=== PATIENT | male | born 1940 | race Caucasian/White ===

== ENCOUNTER 2019-07-13 13:33 | Inpatient (IN) | payer OTHER ==
[2019-07-13 14:57] LABS: Absolute Lymphocytes (CBC) 0.3 K/uL (0.7-4.9); Basophils % 0.6 % (0-1.3); Hematocrit 28.7 % (39.6-49.0); Lymphocytes % 13.7 % (15.3-44.8); MPV 8.7 fL (7.6-11.3); RBC Red Blood Cell Count 3.34 M/uL (4.33-5.43)
[2019-07-13] MEDS ORDERED: ONDANSETRON 4 MG/2 ML VIAL IV PRN (15:00)
[2019-07-13] MEDS ORDERED: ONDANSETRON 4 MG (ODT) TAB PO PRN (15:00)
[2019-07-13] MEDS ORDERED: LOPERAMIDE HCL 2 MG CAPSULE PO PRN (15:00)
[2019-07-13] MEDS ORDERED: DIPHENHYDRAMINE 25 MG TAB/CAP PO PRN (15:00)
[2019-07-13] MEDS ORDERED: POLYETHYL GLY 3350 17 GM/DOSE PO PRN (15:00)
[2019-07-13 15:07] LABS: Protime INR 1.61
--- NOTE | 2019-07-13 15:07 | RAD REPORT ---
EXAM DESCRIPTION: Perla Hammond And Lat (2 Views)07/13/2019 2:50 pm CLINICAL HISTORY: Shortness of breath COMPARISON: January 2018 FINDINGS: A few areas of subsegmental atelectasis are present the lung bases Upper lobes appear clear. The heart is mildly enlarged. Small pleural effusions or thickening unchanged
[2019-07-13 15:21] LABS: Magnesium 1.8 mg/dL (1.8-2.4); Phosphorus 3.6 mg/dL (2.5-4.9); Potassium 5.4 mmol/L (3.5-5.1); Thyroid Stimulating Hormone 3.04 uIU/mL (0.360-3.740)
--- NOTE | 2019-07-13 17:15 | RAD REPORT ---
EXAM DESCRIPTION: USExtrem Venous W Compress Bil07/13/2019 4:34 pm CLINICAL HISTORY: Bilateral leg swelling/elevated D-dimer COMPARISON: 2018 FINDINGS: Echogenic material having the appearance of old thrombus is present within the mid right s uperficial femoral vein, right popliteal vein and right posterior tibial vein. Veins are partially co mpressible Left common femoral, popliteal, superficial femoral and posterior tibial veins demonstrate phasic wav eforms and are compressible. Doppler demonstrates good flow IMPRESSION: Chronic thrombus within the right superficial femoral, right popliteal and right posteri or tibial vein No acute thrombus seen.
[2019-07-13 19:56] LABS: Anisocytosis 1+; Blood Morphology Comment NOTED (NOT SEEN); Platelet Estimate DECR; Urine White Blood Cell Casts OK
[2019-07-14] MEDS ORDERED: LEVOTHYROXINE SOD 0.125 MG TAB PO SCH (06:00)
[2019-07-14 06:11] LABS: Potassium 5.3 mmol/L (3.5-5.1)
[2019-07-14 06:45] LABS: Hematocrit 27.4 % (39.6-49.0); RBC Red Blood Cell Count 3.19 M/uL (4.33-5.43)
[2019-07-14 06:46] LABS: Absolute Lymphocytes (CBC) 0.4 K/uL (0.7-4.9); Basophils % 0.7 % (0-1.3); Lymphocytes % 16.8 % (15.3-44.8); MPV 8.5 fL (7.6-11.3)
[2019-07-14 06:49] LABS: Urine Appearance CLOUDY; Urine Bilirubin NEGATIVE (NEG); Urine Blood NEGATIVE (NEG); Urine Color YELLOW; Urine Glucose NEGATIVE (NEG); Urine Protein 1+ (NEG); Urine Urobilinogen 0.2 mg/dL (0.2-1.0)
[2019-07-14 07:10] LABS: UR MICROALBUMIN 25.7 mg/dL (< 1.9)
[2019-07-14 08:11] LABS: Urine Microscopic Reflex ORDER UMIC
[2019-07-14 08:12] LABS: Urine Bacteria <20 /HPF (NONE SEEN); Urine Coarse Granular Casts 0-5 /LPF (NONE SEEN); Urine Culture Reflex Order NOT NEEDED; Urine Mucus 2+ /HPF (NONE SEEN); Urine RBC <5 /HPF (NONE SEEN)
[2019-07-14] MEDS: HYDRALAZINE HCL 25 MG TABLET PO SCH ×2 (08:56→21:26)
[2019-07-14] MEDS: HOME MED 1 EA UNK (Fluticasone/Vilanterol [Breo Ellipta 200-25 Mcg Inh] 1 EACH) IH SCH (08:56)
[2019-07-14] MEDS ORDERED: GLIMEPIRIDE 2 MG TABLET PO SCH (09:00)
[2019-07-14] MEDS ORDERED: BISOPROLOL 5 MG TABLET PO SCH (09:00)
[2019-07-14] MEDS ORDERED: HYDRALAZINE HCL 25 MG TABLET PO SCH (09:00)
[2019-07-14] MEDS ORDERED: RIVAROXABAN 10 MG TABLET PO SCH (09:00)
[2019-07-14] MEDS ORDERED: SOD POLYSTYREN SUL 15 GM/60 ML UCUP PO ONE (13:10)
--- NOTE | 2019-07-14 13:17 | P.CNS ---
Date of Consult: 07/14/19 Reason for Consult: AGUILAR , hyperkalmeia Requesting Physician: King Love V Chief Complaint: SOB History of Present Illness: A 78 Y/o man with PMHx of CKD baseline Cr ~1.7 , DM, HTN ,CODP, Le DVT on NOAC pt presented with SOB pt was complaining of SOb for the last few days , that becoming worse inspite of using inhalers, pt also report poor oral intake denied NSAID intake, or contrast exposure, Cr 2.3, K 5.3, not on SOLOMON or ARB no nausea, vomiting , diarrhea or constipation Allergies No Known Allergies Allergy (Unverified 07/13/19 14:09) Home Medications: Bisoprolol Fumarate [Zebeta] 10 mg PO DAILY 07/13/19 Fluticasone/Vilanterol [Breo Ellipta 200-25 Mcg INH] 1 each IH DAILY 07/13/19 Glimepiride [Amaryl] 4 mg PO BID 07/13/19 Hydralazine HCl [Apresoline] 100 mg PO DAILY 07/13/19 Levothyroxine [Synthroid] 125 mcg PO [id number] 07/13/19 Rivaroxaban [Xarelto] 10 mg PO DAILY 07/13/19 - Past Medical/Surgical History Diabetic: Yes -: HTN -: DMII -: Asthma -: left lower lobectomy -: right knee arthroscoopy -: neck surgery -: 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 - Social History Smoking Status: Never smoker Alcohol use: No CD- Drugs: No Caffeine use: No Place of Residence: Home Physical Examination Temp Pulse Resp BP Pulse Ox 98.0 F 66 18 137/71 91 07/14/19 08:00 07/14/19 08:57 07/14/19 08:00 07/14/19 08:57 07/14/19 08:00 General: Oriented x3, Mild distress HEENT: Atraumatic Neck: Supple, Without JVD or thyroid abnormality Respiratory: Diminished Cardiovascular: No edema, Other (R tleg swelling with chronic venous stasis ) Gastrointestinal: Normal bowel sounds, Soft and benign, Non-distended Laboratory Data (last 24 hrs) 07/14/19 05:34: Sodium 141, Potassium 5.3 H, BUN 79 H, Creatinine 2.31 H, Glucose 146 H, Magnesium 2.0 07/14/19 05:34: WBC 2.4 L, Hgb 8.9 L, Hct 27.4 L, Plt Count 116 L 07/13/19 14:30: PT 18.7 H, INR 1.61, APTT 38.6 H 07/13/19 14:30: Sodium 140, Potassium 5.4 H, BUN 75 H D, Creatinine 2.43 H, Glucose 183 H, Phosphorus 3.6, Magnesium 1.8 07/13/19 14:30: WBC 2.5 L D, Hgb 9.4 L, Hct 28.7 L, Plt Count 123 L - Problems (1) AGUILAR (acute kidney injury) Current Visit: Yes Status: Acute (2) Hyperkalemia Current Visit: Yes Status: Acute Conclusions/Impression: AGUILAR on CKD possible due to prerenal azotemia UA: mild protein, no bld will get renal US will start on gentle hydration hyperkalemia likey due to AGUILAR Will give kayexalate will send for TSH and CPK HTN controlled DM as per PCP COPD exacerbation cont inhalers
[2019-07-14] MEDS: LEVALBUTEROL 1.25 MG/3 ML NEB IH PRN (13:45)
[2019-07-14] MEDS: IPRATROPIUM BROM 0.5MG/2.5ML IH PRN (13:45)
--- NOTE | 2019-07-14 14:40 | P.PN ---
Subjective Date of Service: 07/14/19 Chief Complaint: SOB Subjective: No new changes HE IS STILL DYSPNEIC AT REST. HE DENIES CHEST PAIN. Review of Systems 10-point ROS is otherwise unremarkable General: Weakness, Malaise Respiratory: Shortness of Breath Physical Examination - Vital Signs Temperature: 99.5 F Blood Pressure: 156/78 Pulse: 68 Respirations: 18 Pulse Ox (%): 93 - Physical Exam General: Alert, Cachectic, Mild distress, Moderate distress HEENT: Atraumatic, PERRLA, EOMI Neck: Supple, JVD not distended Respiratory: Clear to auscultation bilaterally, Normal air movement Cardiovascular: Regular rate/rhythm, Normal S1 S2 Gastrointestinal: Normal bowel sounds, No tenderness Musculoskeletal: No tenderness Integumentary: No rashes Neurological: Normal speech, Normal tone, Normal affect Lymphatics: No axilla or inguinal lymphadenopathy - Studies Laboratory Data (last 24 hrs) 07/14/19 05:34: Sodium 141, Potassium 5.3 H, BUN 79 H, Creatinine 2.31 H, Glucose 146 H, Magnesium 2.0 07/14/19 05:34: WBC 2.4 L, Hgb 8.9 L, Hct 27.4 L, Plt Count 116 L 07/13/19 14:30: PT 18.7 H, INR 1.61, APTT 38.6 H 07/13/19 14:30: Sodium 140, Potassium 5.4 H, BUN 75 H D, Creatinine 2.43 H, Glucose 183 H, Phosphorus 3.6, Magnesium 1.8 07/13/19 14:30: WBC 2.5 L D, Hgb 9.4 L, Hct 28.7 L, Plt Count 123 L Medications List Reviewed: Yes Assessment And Plan - Current Problems (Diagnosis) (1) Severe pulmonary arterial systolic hypertension Current Visit: Yes Status: Chronic Plan: START CIALIS 20 MG DAILY. IF TOLERATED WILL RISE TO 40 MG DAILY. PROGNOSIS IS GUARDED. (2) A-fib Current Visit: Yes Status: Acute Plan: RATE CONTROLLED. CHANGE FROM XARELTO TO ELIQUIS RENAL FUNCTION IS POOR. (3) Cirrhosis of liver Current Visit: Yes Status: Chronic Plan: FROM HEP C. STABLE. SHOWS PANCYTOPENIA. HE HAS BEEN FULLY TREATED FOR HEP C WITH RECOVERY. (4) AGUILAR (acute kidney injury) Current Visit: Yes Status: Chronic Plan: NOT MUCH CHANGED FROM PAST. DR. BELLA WARE. (5) Hyperkalemia Current Visit: Yes Status: Chronic Plan: HE HAS QUIT FRUITS BUT WHEN HE CHEATS IT GOES FORM 5.0 TO 5.7.
[2019-07-14] MEDS: NA CHLORIDE 0.9% 1,000 ML IV SCH (15:20)
[2019-07-14] MEDS: GLIMEPIRIDE 4 MG PO SCH (17:19)
--- NOTE | 2019-07-14 17:42 | CON ---
Date of Consultation: 07/14/[address] Love's service on 07/13/2019. I saw the patient on 07/14/2019. Reason For Consultation: Atrial fibrillation. History Of Present Illness: Mr. Llanes is a 78-year-old white male, has had a history of DVT on th e right lower extremity. This is a chronic DVT. Venous Doppler yesterday showed no acute thrombosis . He came in with shortness of breath, could not do a V/Q scan because he could not tolerate it. He is not a candidate for CT angiogram because of creatinine of 2.43. He denied any chest pain, but hall s shortness of breath. His D-dimer was 7551. His BNP is 31,356. His glucose was 199. His hemoglob in was 9.4. Chest x-ray shows some pleural effusion. Patient has had a history of lung cancer. He is status post left lower lobe lobectomy. He also has a history of hypertension, diabetes, hypothyro idism. Patient denied any syncope. He denied having any symptoms of atrial fibrillation. Denied an y unexplained nausea, vomiting, or diaphoresis. His biggest complaint is dyspnea on exertion. Past Medical History: As stated above. Allergies: NONE. Review of Systems: Negative. Social History: Negative. Family History: Noncontributory. Medication: His medication list includes: 1.Amaryl. 2.Zebeta. 3.Hydralazine. 4.Xarelto. 5.Synthroid. Physical Examination: General: He was very pleasant. Vital Signs: Stable. He was afebrile. He was in atrial fibrillation at a rate of about 80. HEENT: Negative. Neck: Supple without any bruit, lymphadenopathy, JVD, or thyromegaly. Chest: Actually clear to auscultation and percussion. Cardiac: Atrial fibrillation. No murmurs, gallops, or rubs. Abdomen: Benign. Extremities: The left lower extremity was normal. The right lower extremity showed 1+ edema and chr onic venous insufficiency changes. Skin: Dry and intact. Vascular: His pulses were present bilaterally symmetrically in the distal extremities. Neurologic: He was nonfocal. Diagnostic Data: As stated earlier. Impression And Plan: 1.The patient with shortness of breath, possibly secondary to chronic obstructive pulmonary disease, emphysema, or asthma. With his elevated BNP, elevated D-dimer is certainly could have a pulmonary e mbolus. He could not tolerate the V/Q scan and he is not a candidate for CT angiogram. Patient is o n Xarelto anyway. Echocardiogram is pending. This will rule out congestive heart failure and we ayesha l check on his pulmonary artery pressure. 2.Atrial fibrillation, which seems to be new in onset. Again, he is on Xarelto, but I think with hi s renal dysfunction as severe as it is, I would prefer he switches to Eliquis. This was [facility] Dr. Love. 3.Renal insufficiency stage IV. Nephrology consultation is pending. 4.Anemia probably related to his renal failure. 5.History of lung cancer, status post surgery. He is status post left lower lobe lobectomy as pleur al effusion on the x-ray. 6.History of chronic deep venous thrombosis. 7.Diabetes, well controlled. 8.Hypertension, well controlled. 9.Hypothyroidism, well controlled. We will see what his echo shows. Continue his present regimen. Change to Eliquis. I will discuss the case further with Dr. Love aft er the echo is available. JESSICA/ZOHRAL Voice ID: [id number] Report ID: [id number]
--- NOTE | 2019-07-14 20:18 | EKG ---
Test Date: 2019-07-14 Test Time: 17:55:45 Timber Spotter: NADEGE MEASUREMENT RESULTS: Intervals: Rate: 77 MO: QRSD: 88 QT: 370 QTc: 418 [place]: P: MO: QRS: -14 T: -76 INTERPRETIVE STATEMENTS: Atrial flutter with variable AV block ST depression, consider subendocardial injury or digitalis effect Abnormal QRS-T angle, consider primary T wave abnormality Abnormal ECG Compared to ECG 04/19/2012 16:35:47 ST (T wave) deviation now present T-wave abnormality now present Sinus rhythm no longer present Left ventricular hypertrophy no longer present Electronically Signed On 07-14-19 20:18:11 CDT by Gato Orr
[2019-07-14] MEDS: APIXABAN 2.5 MG TABLET PO SCH (21:25)
[2019-07-14] MEDS: SILDENAFIL CITRATE 20 MG TABLET PO SCH (21:26)
[2019-07-15] MEDS: ACETAMINOPHEN 325 MG TABLET PO PRN ×2 (05:44→14:34)
[2019-07-15] MEDS: LEVOTHYROXINE 0.125 MG PO SCH (05:44)
[2019-07-15] MEDS: NA CHLORIDE 0.9% 1,000 ML IV SCH ×2 (05:50→10:00)
[2019-07-15 06:17] LABS: Absolute Lymphocytes (CBC) 0.2 K/uL (0.7-4.9); Basophils % 0.4 % (0-1.3); Hematocrit 25.2 % (39.6-49.0); Lymphocytes % 10.8 % (15.3-44.8); MPV 8.3 fL (7.6-11.3); RBC Red Blood Cell Count 2.98 M/uL (4.33-5.43)
[2019-07-15 06:18] LABS: Magnesium 1.8 mg/dL (1.8-2.4); Potassium 4.3 mmol/L (3.5-5.1)
[2019-07-15 08:31] LABS: Thyroid Stimulating Hormone 2.43 uIU/mL (0.360-3.740)
[2019-07-15] MEDS ORDERED: XARELTO 10 MG PO SCH ×2 (09:00)
[2019-07-15] MEDS: HOME MED 1 EA UNK (Fluticasone/Vilanterol [Breo Ellipta 200-25 Mcg Inh] 1 EACH) IH SCH (09:00)
[2019-07-15] MEDS: APIXABAN 2.5 MG TABLET PO SCH ×2 (09:34→21:48)
[2019-07-15] MEDS: HYDRALAZINE HCL 25 MG TABLET PO SCH ×2 (09:35→21:00)
[2019-07-15] MEDS: SILDENAFIL CITRATE 20 MG TABLET PO SCH ×3 (09:40→21:48)
[2019-07-15] MEDS: GLIMEPIRIDE 4 MG PO SCH ×2 (09:41→17:33)
[2019-07-15] MEDS: BISOPROLOL FUMARATE 10 MG PO SCH (09:43)
[2019-07-15] MEDS: levoFLOXacin 250 MG TAB PO SCH (09:46)
[2019-07-15] MEDS: LEVALBUTEROL 1.25 MG/3 ML NEB IH PRN (13:15)
[2019-07-15] MEDS: IPRATROPIUM BROM 0.5MG/2.5ML IH PRN (13:15)
[2019-07-15] MEDS ORDERED: FUROSEMIDE 40 MG/4 ML VIAL IV ONE (13:32)
[2019-07-15] MEDS: METHYLPREDNISOLONE 125 MG INJ ONE ×2 (13:54→14:06)
[2019-07-15] MEDS ORDERED: METHYLPREDNISOLONE 125 MG INJ IV ONE (14:00)
[2019-07-15 14:46] LABS: Potassium 4.6 mmol/L (3.5-5.1); Troponin I 0.07 ng/mL (0.0-0.045)
--- NOTE | 2019-07-15 15:44 | RAD REPORT ---
EXAM DESCRIPTION: Perla Single View07/15/2019 3:27 pm CLINICAL HISTORY: Chest pain COMPARISON: July 13, 2019 FINDINGS: Right basilar opacity Small pleural effusions. Heart remains enlarged. Mild right upper lobe opacity. Mild mid left lung opacity IMPRESSION: Bilateral pulmonary opacities right greater than left probably representing pneumonia. A symmetric pulmonary edema is another consideration
[2019-07-15] MEDS: METHYLPREDNISOLONE 40 MG INJ IV SCH ×2 (17:33→21:49)
--- NOTE | 2019-07-15 19:20 | PN ---
Date of Progress Note: 07/15/2019 Subjective: The patient was admitted with acute kidney injury. Patient being on IV fluid. Patient today complaining from shortness of breath. Physical Examination: Vital Signs: Blood pressure 103/53, pulse of 68. Patient had urine output of 550. Chest: Crackles bilateral. Heart: S1, S2. Systolic murmur. Abdomen: Soft, nontender. Extremities: No edema. Laboratory Data: WBC 2.1, H and H 8.5/25.2, platelets 124. Sodium 143, potassium 4.3, bicarb 21, BU N 75, creatinine 1.9, GFR of 33, calcium 8.1, magnesium 1.8. Current Medications: Levaquin 250 daily, breathing treatment, hydralazine, Viagra, loperamide. Assessment And Plan: 1.Acute kidney injury secondary to cardiorenal over-volume. I am going to go ahead and discontinue IV fluid, place the patient on Lasix, and we will get chest x-ray for better evaluation of the fluid status of the patient. 2.Hypertension. We will utilize blood pressure for more diuresis. 3.Chronic kidney disease with acute kidney injury as above. 4.Chronic obstructive pulmonary disease exacerbation by primary. I am going to start the patient on prednisone. Continue breathing treatment. 5.Hypomagnesemia. We will supplement. ELIZABETH/ELENI Voice ID: [id number] Report ID: [id number]
--- NOTE | 2019-07-15 20:59 | RAD REPORT ---
EXAM DESCRIPTION: US - Renal Ultrasound-Complete - 07/15/2019 8:32 pm CLINICAL HISTORY: Acute renal insufficiency COMPARISON: None. FINDINGS: The right kidney measures 11 cm with an increased echotexture. The left kidney measures 11 cm with an increased echotexture. A 2 centimeter cyst Hydronephrosis is not seen. No gross abnormality of bladder is seen Small amount of ascites IMPRESSION: Increased renal echotexture consistent with parenchymal disease
[2019-07-15] MEDS ORDERED: METHYLPREDNISOLONE 40 MG INJ IV SCH (21:00)
[2019-07-16] MEDS: METHYLPREDNISOLONE 40 MG INJ IV SCH ×2 (04:09→10:34)
[2019-07-16] MEDS: LEVOTHYROXINE 0.125 MG PO SCH (06:11)
[2019-07-16 06:39] LABS: Albumin 2.4 g/dL (3.4-5.0); BUN Blood Urea Nitrogen 81 mg/dL (7-18); Bicarbonate 19 mmol/L (21-32); Ferritin 125.1 ng/mL (26-388); Folic Acid, (Folate) > 20.0 ng/mL (3.1-17.5); Glucose Level 342 mg/dL (74-106); Magnesium 1.8 mg/dL (1.8-2.4); Phosphorus 4.5 mg/dL (2.5-4.9); Potassium 4.4 mmol/L (3.5-5.1); Sodium Level 143 mmol/L (136-145); Transferrin 161 mg/dL (200-360)
[2019-07-16 06:55] LABS: Absolute Lymphocytes (CBC) 0.1 K/uL (0.7-4.9); Basophils % 0.4 % (0-1.3); Hematocrit 26.9 % (39.6-49.0); Lymphocytes % 14.2 % (15.3-44.8); MPV 8.3 fL (7.6-11.3); RBC Red Blood Cell Count 3.15 M/uL (4.33-5.43)
[2019-07-16] MEDS: APIXABAN 2.5 MG TABLET PO SCH ×2 (08:19→21:56)
[2019-07-16] MEDS: HYDRALAZINE HCL 25 MG TABLET PO SCH ×2 (08:19→21:56)
[2019-07-16] MEDS: SILDENAFIL CITRATE 20 MG TABLET PO SCH ×3 (08:19→21:59)
[2019-07-16] MEDS: levoFLOXacin 250 MG TAB PO SCH (08:19)
[2019-07-16] MEDS: GLIMEPIRIDE 4 MG PO SCH ×2 (08:20→16:54)
[2019-07-16] MEDS: HOME MED 1 EA UNK (Fluticasone/Vilanterol [Breo Ellipta 200-25 Mcg Inh] 1 EACH) IH SCH (08:25)
[2019-07-16] MEDS: BISOPROLOL FUMARATE 10 MG PO SCH (08:25)
[2019-07-16] MEDS ORDERED: D50W 25 GM/50 ML SYRINGE IV PRN ×2 (08:51→17:03)
[2019-07-16] MEDS ORDERED: GLUCAGON 1 MG/VIAL IM PRN ×2 (08:51→17:03)
[2019-07-16 08:59] LABS: Anisocytosis 2+; Blood Morphology Comment NOTED (NOT SEEN); Platelet Estimate ADEQ; Urine White Blood Cell Casts OK
[2019-07-16 09:00] LABS: Burr Cells 2+
[2019-07-16] MEDS ORDERED: VANCOMYCIN 500 MG in NA CHLORIDE 0.9% 100 ML IVPB SCH (09:00)
[2019-07-16] MEDS: INSULIN -REGULAR HUMAN 50 UNIT/0.5 ML ML SQ SCH ×6 (09:44→21:56)
[2019-07-16 10:03] LABS: Urine Protein/Creatinine Ratio 0.94 ratio (<0.15)
[2019-07-16] MEDS ORDERED: VANCOMYCIN 1.5 GM in NA CHLORIDE 0.9% 500 ML IVPB SCH (11:00)
[2019-07-16] MEDS ORDERED: MAGNESIUM SULFATE 1 gm IVPB 1 GM/100 ML BAG IV ONE (12:00)
--- NOTE | 2019-07-16 12:53 | RAD REPORT ---
EXAM DESCRIPTION: CT - CT CHEST,ABD,PELVIS W/O - 07/16/2019 11:54 am CLINICAL HISTORY: pneumonia immunocompromised COMPARISON: Thorax W/ Con dated 12/09/2017; Renal Ultrasound-Complete dated 07/15/2019; Chest Single Vi ew dated 07/15/2019 FINDINGS: Significantly limited study due to lack of IV contrast. Small right pleural effusion is present. Emphysematous changes are present throughout the lungs. Airs pace opacity in the right lung base is noted compatible with pneumonia. Mild linear opacities in the left lung base likely represent atelectasis. No pericardial fluid. Mild ascites is present in the abdomen pelvis. There is some high density within the ascites fluid in the pelvis cyst solid organs show no aggressive finding. Sigmoid diverticulosis coli is present without diverticulitis. Prostate gland is enlarged projects in to the bladder base. Moderate lower lumbar degenerative changes are present. All CT scans are performed using dose optimization technique as appropriate and may include automated exposure control or mA/KV adjustment according to patient size. IMPRESSION: Small right pleural effusion with airspace opacity in the right lung base, likely repres enting pneumonia. Mild linear atelectasis is present in left lung base. Mild volume ascites is noted.
[2019-07-16] MEDS: TBO-FILGRASTIM 480 MCG/0.8 ML SYR SQ SCH (13:36)
[2019-07-16] MEDS: SOD FERRIC GLUC COMPLX/SUCROSE 250 MG in NA CHLORIDE 0.9% 250 ML IV SCH (13:38)
[2019-07-16] MEDS ORDERED: LEVALBUTEROL 1.25 MG/3 ML NEB IH PRN (15:00)
--- NOTE | 2019-07-16 16:18 | PN ---
Date of Progress Note: 07/16/2019 Subjective: Patient was admitted with acute kidney injury on chronic kidney disease. Patient yester day had respiratory distress secondary to over volume after diuresis felt better. Physical Examination: Vital Signs: Blood pressure 149/77, pulse of 66, afebrile. Patient had good urine output of 550. Chest: Faint crackles on the right base. Heart: S1, S2. Systolic murmur. Abdomen: Distended. Extremities: No edema. Laboratory Data: WBC 0.8, H and H 8.8/26.9, platelets 125. Sodium 143, potassium 4.4, bicarb 19, BU N 81, creatinine 2, GFR of 32, glucose 342, calcium 7.9, phosphorus 4.5, magnesium 1.8. T-sat of 36, ferritin 125. Cardiac enzyme was negative. SPEP still pending. B12 more than 2000, folate more th an 20. PTH 93. Urinalysis; specific gravity of 1.020, negative for infection, PC ratio 0.9. Serolo gy still pending. Assessment And Plan: 1.Acute kidney injury secondary to cardiorenal normal volume. Currently, I am going to continue to monitor the patient given the history of leukopenia. We will continue to monitor the patient closely . I will follow up on the serologies, especially with the presence of leukopenia and mouth ulcer bef ore. We will send for NAKIA. 2.Hypertension, controlled, optimal. Continue to monitor. 3.Leukopenia with infection and with the finding on the CT with infiltration on the right base. I a m going to go ahead and change Levaquin to Zosyn. Consult ID. We will get CT abdomen, pelvis and ch est. We will follow up with Oncology and ID. Follow up with the Primary. 4.Respiratory distress secondary to pneumonia and over volume as above. Case discussed with the patient, verbalized understanding in the presence of the daughter. Discussed with Dr. Love. ELIZABETH/ELENI Voice ID: [id number] Report ID: [id number]
[2019-07-16] MEDS: PIPER/TAZO/NS 2.25gm 2.25 GM/50 ML BAG IVPB SCH (16:54)
--- NOTE | 2019-07-16 16:57 | PN ---
Chief Complaint: Patient is feeling a lot better than yesterday. Breathing has improved. Shortness of breath has much improved. He is on 2 L nasal cannula now with a saturation of 95%. He does not have any chest pain, coughing, sputum, hemoptysis, hematemesis, melena. Physical Examination: Vital Signs: Blood pressure 149/77, pulse is 66, temperature 97.9. Neck: No JVD. No carotid bruits. Heart: Irregular. Abdomen: No guarding, no rebound, no rigidity. Neurological: At baseline. Laboratory Data: His white count dropped down to 800 from 2.2, which is 2200. Absolute neutrophils 0.7%, which is 700. Sodium 143, potassium 4.4, bicarb is 19, BUN 81, creatinine 2.02. Iron 8.0, TIB C 225, transferrin 161, ferritin level is normal at 125. PTH level high at 94 or 93. Assessment/plan: Patient has multiple multisystem medical problems at this point. 1.Leukopenia. He is actually pancytopenic from cirrhosis of liver, but he has dropped his WBC count rapidly over 24 hours. This could be from sepsis. His blood culture is positive for 1 culture, gra m-positive cocci, or it could be just acute reaction to multiple medical issues he is going through c oriana. Dr. Zaragoza has been consulted. Patient may need Neupogen. He is already on vancomycin IV, and he has been on Levaquin since yesterday for broad-spectrum coverage until his white count comes u p to normal or at his baseline. 2.Chronic renal failure. His BUN and creatinine at baseline are 75 and 1.9 to 1.7. Collection Manager is on the case. Currently stable. 3.Pneumonia. On chest x-ray, there are bilateral diffuse airspace changes. Clinically stable. Con tinue Levaquin. Prognosis fair. 4.Hyperkalemia, has been an issue for him for long time, but he will be watching his diet. He loves excessive watermelon, which I have advised him to quit eating excessive food at this point. 5.Severe pulmonary hypertension. This is a new problem for him. He has been started on Viagra for that since a couple of days ago. This could explain his chronic shortness of breath. This seems lik e primary pulmonary hypertension as he does not have any secondary causes like left-sided heart failu re. He does have baseline COPD, which could be adding to the problem. He does not have any kind of valvular dysfunction giving rise to pulmonary hypertension. Prognosis overall remains guarded. Laurence ent's family has been explained. We had a long discussion with the patient's and daughter today , and they are aware of the multisystem problems we are dealing with. 6.Cirrhosis of liver, which is stable currently, but again that adds to multiple problems including renal, cardiac, cardiopulmonary, and liver problems. RVD/MODL Voice ID: [id number] Report ID: [id number]
--- NOTE | 2019-07-16 18:24 | EKG ---
Test Date: 2019-07-15 Test Time: 13:58:30 Neurological Physiotherapist: JAKY MEASUREMENT RESULTS: Intervals: Rate: 112 DE: QRSD: 78 QT: 352 QTc: 480 [place]: P: DE: QRS: 32 T: -78 INTERPRETIVE STATEMENTS: Atrial fibrillation with rapid ventricular response ST & T wave abnormality, consider inferior ischemia or digitalis effect Abnormal ECG Compared to ECG 07/14/2019 17:55:45 Possible ischemia now present Atrial flutter no longer present T-wave abnormality no longer present ST (T wave) deviation still present Electronically Signed On 07-16-19 18:22:50 CDT by Gato Orr
[2019-07-16] MEDS ORDERED: METHYLPREDNISOLONE 40 MG INJ IV SCH (21:00)
--- NOTE | 2019-07-16 21:03 | PN ---
Date of Progress Note: 07/15/2019 Mr. Llanes was seen on 07/14/2019 because of a new-onset atrial flutter. He has a history of hyper tension, diabetes, deep venous thrombosis, hypothyroidism, history of lung cancer and tongue cancer. He is status post left lower lobe lobectomy. He came in with elevated D-dimer, anemia, severe renal insufficiency. He could not have a CTA and he could not do the V/Q scan. Venous Doppler showed chr onic right lower extremity deep venous thrombosis. Echocardiogram that was done showed normal ejecti on fraction with severe pulmonary hypertension, atrial flutter, rate controlled, slight left atrial d ilatation, no thrombus. I believe his symptoms basically are probably secondary to severe pulmonary hypertension. Pulmonary embolus could not be ruled out, but nevertheless with his renal insufficienc y and his atrial flutter, I think switching him to Eliquis would be reasonable. As far as atrial fib rillation is concerned, it is rate controlled and asymptomatic and I prefer we will continue his beta for now. We will consider cardioversion electrically if his rate goes up or if he becomes symptomat ic. Renal consultation is pending. We will follow him as needed. JESSICA/ELENI Voice ID: [id number] Report ID: [id number]
[2019-07-16] MEDS: INSULIN GLARGINE 100 UNITS/ML SQ SCH (21:57)
[2019-07-16 23:35] LABS: Rheumatoid Factor NEG (NEG)
[2019-07-17] MEDS: PIPER/TAZO/NS 2.25gm 2.25 GM/50 ML BAG IVPB SCH ×3 (01:48→18:18)
[2019-07-17 04:46] LABS: Absolute Lymphocytes (CBC) 0.1 K/uL (0.7-4.9); Basophils % 0.1 % (0-1.3); Hematocrit 25.7 % (39.6-49.0); Lymphocytes % 2.5 % (15.3-44.8); MPV 8.2 fL (7.6-11.3); RBC Red Blood Cell Count 3.06 M/uL (4.33-5.43)
[2019-07-17 04:53] LABS: Albumin 2.4 g/dL (3.4-5.0); Magnesium 1.9 mg/dL (1.8-2.4); Phosphorus 2.8 mg/dL (2.5-4.9); Potassium 4.2 mmol/L (3.5-5.1)
[2019-07-17 05:06] LABS: Blood Morphology Comment NOTED (NOT SEEN); Burr Cells 1+; Hypochromasia 1+; Platelet Estimate ADEQ
[2019-07-17] MEDS: LEVOTHYROXINE 0.125 MG PO SCH (05:39)
[2019-07-17 05:43] VITALS: BMI 21.9
[2019-07-17] MEDS: INSULIN -REGULAR HUMAN 50 UNIT/0.5 ML ML SQ SCH ×4 (07:30→21:45)
--- NOTE | 2019-07-17 08:11 | ECHO ---
HEIGHT: 6 ft 4 in WEIGHT: 179 lb 14.24 oz DATE OF STUDY: 07/14/[address]: King Love MD 2-DIMENSIONAL: YES M.MODE: YES DOPPLER: YES COLOR FLOW: YES TDS: NO PORTABLE: NO DEFINITY: NO BUBBLE STUDY: NO DIAGNOSIS: EDEMA, DYSPNEA CARDIAC HISTORY: CATHERIZATION: YES SURGERY: NO PROSTHETIC VALVE: NO PACEMAKER: NO MEASUREMENTS (cm) DIASTOLIC (NORMALS) SYSTOLIC (NORMALS) IVSd 1.1 (0.6-1.2) LA Diam 4.0 (1.9-4.0) LVEF 66% LVIDd 3.6 (3.5-5.7) LVIDs 2.3 (2.0-3.5) %FS 35% LVPWd 1.2 (0.6-1.2) Ao Diam 3.4 (2.0-3.7) 2 DIMENSIONAL ASSESSMENT: RIGHT ATRIUM: NORMAL LEFT ATRIUM: NORMAL RIGHT VENTRICLE: NORMAL LEFT VENTRICLE: NORMAL TRICUSPID VALVE: NORMAL MITRAL VALVE: MITRAL ANNULAR CALCIFICATION PULMONIC VALVE: NORMAL AORTIC VALVE: SCLEROSIS PERICARDIAL EFFUSION: NONE AORTIC ROOT: NORMAL LEFT VENTRICULAR WALL MOTION: NORMAL DOPPLER/COLOR FLOW: MILD TRICUSPID REGURGITATION. SEVERE PULMONARY HYPERTENSION. COMMENTS: NORMAL LEFT VENTRICULAR EJECTION FRACTION. NORMAL LEFT VENTRICULAR SIZE AND FUNCTION. MILD TRICUSPID REGURGITATION. SEVERE PULMONARY HYPERTENSION. RIGHT VENTRICULA R SYSTOLIC PRESSURE 81 mmHg. MITRAL ANNULAR CALCIFICATION. AORTIC SCLEROSIS WITH NO STENOSIS. TECHNOLOGIST: Ubaldo JOSEPH
--- NOTE | 2019-07-17 09:28 | PN ---
Subjective: Mr. Llanes is short of breath off and on. This morning, he is feeling lot better. He denies any chest pain, nausea, vomiting. Physical Examination: Vital Signs: Blood pressure 103/54, pulse is 68. HEENT: No JVD. No carotid bruits. General: Patient is a frail gentleman, who has decreased breath sounds bilaterally. Lungs: Basilar rales. Heart: Irregular. Abdomen: No guarding. No rebound. No rigidity. Laboratory Data: White count 2100, which is chronically low for hemoglobin 8.5, platelets 124,000. This is from cirrhosis of liver. BUN and creatinine improved to 75/1.99. Echocardiogram shows sever e pulmonary hypertension. Assessment And Plan: 1.Shortness of breath from severe pulmonary hypertension. I have started him on Viagra 20 mg p.o. t .i.d., which is a known therapy for pulmonary hypertension. This pulmonary hypertension seems to be primary pulmonary hypertension. He does not have any left ventricular heart failure. He has minimal chronic obstructive pulmonary disease possibly, but his prognosis remains overall guarded. 2.Patient has low-grade fever this morning and yesterday. Obtained 2 blood cultures. Start him on Levaquin once a day. Possible respiratory infection. 3.Cirrhosis of liver, unchanged. This is from hepatitis C. Currently stable. 4.Dehydration. BUN 75, creatinine 1.99. IV fluid gentle. 5.Hyperglycemia. He is being followed on outpatient basis. Prognosis overall guarded. RVD/MODL Voice ID: [id number] Report ID: [id number]
[2019-07-17] MEDS: GLIMEPIRIDE 4 MG PO SCH ×2 (10:30→16:52)
[2019-07-17] MEDS: BISOPROLOL FUMARATE 10 MG PO SCH (10:30)
[2019-07-17] MEDS: SILDENAFIL CITRATE 20 MG TABLET PO SCH ×3 (10:30→21:47)
[2019-07-17] MEDS: SOD FERRIC GLUC COMPLX/SUCROSE 250 MG in NA CHLORIDE 0.9% 250 ML IV SCH (10:31)
[2019-07-17] MEDS: TBO-FILGRASTIM 480 MCG/0.8 ML SYR SQ SCH (10:31)
[2019-07-17] MEDS: HYDRALAZINE HCL 25 MG TABLET PO SCH ×2 (10:31→21:43)
[2019-07-17] MEDS: APIXABAN 2.5 MG TABLET PO SCH ×2 (10:31→21:44)
[2019-07-17] MEDS: HOME MED 1 EA UNK (Fluticasone/Vilanterol [Breo Ellipta 200-25 Mcg Inh] 1 EACH) IH SCH (10:32)
--- NOTE | 2019-07-17 11:37 | EKG ---
Test Date: 2019-07-15 Test Time: 13:59:22 Water Gas Operator: JAKY MEASUREMENT RESULTS: Intervals: Rate: 86 AL: QRSD: 94 QT: 358 QTc: 428 [place]: P: AL: QRS: 49 T: 105 INTERPRETIVE STATEMENTS: Atrial fibrillation ST & T wave abnormality, consider lateral ischemia or digitalis effect Abnormal ECG Compared to ECG 07/15/2019 13:58:30 No significant changes Electronically Signed On 07-17-19 11:31:39 CDT by Gato Orr
--- NOTE | 2019-07-17 12:43 | PN ---
Chief Complaint: Acute kidney injury on chronic kidney disease stage 3. Patient is recovering from acute kidney injury. He has cardiorenal syndrome and hypervolemia. He is feeling better. Review of Systems: Denies fever, chills. Denies PND, orthopnea. Physical Examination: Lungs: Few crackles at bases. Heart: S1, S2. 2/6 systolic murmur at left lower sternal border. Abdomen: Soft. Benign. Extremities: No edema. Laboratory Data: BUN 81, creatinine 2.0, hemoglobin 8.8. Sodium 143, potassium 4.4. Today, blood work showed sodium 145, potassium 4.2, chloride 111, CO2 of 20, BUN 94, creatinine 1.92, glucose 127, calcium 8.2, magnesium 1.9, phosphorus 2.4 , albumin 2.4. Impression And Plan: 1. Acute kidney injury, severe cardiorenal syndrome. Continue diuretics, low- sodium diet. Adjust treatment with diuretics according to fluid balance. 2. Hypertension, controlled. 3. Hypoalbuminemia. The patient will have workup for proteinuria. 4. Chronic kidney disease stage 3. Ultrasound did not show obstructive uropathy. 5. Patient is undergoing workup for leukopenia and NAKIA test was sent. Followup on NAKIA and check for any evidence of positivity secondary to rule out glomerulonephritis. JAVY/MODRosamaria Voice ID: [id number] Report ID: [id number] RAINER
[2019-07-17 15:11] LABS: Albumin 2.4 g/dL (3.4-5.0); Bilirubin Direct 0.1 mg/dL (0-0.2); Bilirubin Total 0.3 mg/dL (0.2-1.0); Protein, Total 5.9 g/dL (6.4-8.2)
--- NOTE | 2019-07-17 17:49 | PN ---
Subjective: Mr. Llanes is doing lot better. He is not short of breath anymore. Denies any chest pain, nausea, or vomiting. Objective: General: He is comfortable with minimal or no distress. Chest: Clear. Decreased breath sounds bilaterally. Abdomen: No guarding, no rebound, no rigidity. Vital Signs: Blood pressure 115/67, pulse 64, temperature 97.8. Neck: No JVD. No carotid bruits. Heart: Irregular. Investigations: White count 5500, hemoglobin 8.7, hematocrit 25 with bands of 15%. This is after me dication by Dr. Zaragoza. Sugars down to 122, BUN 94, creatinine 1.92. Medication List: Currently, he is on apixaban 2.5 mg b.i.d., hydralazine 50 mg p.o. b.i.d., vancomyc in q.36 hours, and Zosyn q.8 hours. Insulin Lantus has started 10 units subcu daily because his gluc ose went up to 400 with steroids, steroids have been discontinued now. Bisoprolol 5 mg once a day, g limepiride 4 mg p.o. b.i.d., levothyroxine 0.25 mg once a day. Xarelto has been discontinued. Assessment And Plan: Multiple medical issues: 1.Renal failure. BUN and creatinine are rising again. He was on IV fluids, but developed shortness of breath that was discontinued. Issued a dose of 2 of Lasix at that time. 2.Pneumonia, small pneumonia, but again immunocompromised status. Continue IV antibiotics, Zosyn, a nd vancomycin. He has grown one of the blood cultures positive for gram-positive cocci in clusters. ID is pending. His urine is showing Enterococcus faecalis, but this is a clean-catch urine, sensiti ve to vancomycin. 3.Atrial fibrillation, currently controlled. 4.Hypertension, controlled, stable. 5.Severe pulmonary hypertension. He is on Revatio 20 mg p.o. t.i.d. That should clinically help hi m over a long duration. 6.Cirrhosis of liver. Renal function can be poor because of cirrhosis. This is stable currently and his pancytopenia has improved after Dr. Zaragoza has given Neupo gen. RVD/MODL Voice ID: [id number] Report ID: [id number]
--- NOTE | 2019-07-17 18:54 | CON ---
History Of Present Illness: This is a 78-year-old male with multiple medical problems. I was consul devaughn for urinary tract infection secondary to Enterococcus faecalis, sensitive to everything, not VRE. The patient feels much better today, currently on vancomycin and Zosyn. The patient has significan t past medical history of DVT to the right lower extremity, hypothyroidism, edema, hypertension, store hand augustine kidney disease, elevated PSA, myelodysplastic syndrome, hypercoagulopathy, hepatitis C, homocysti nemia, diabetes mellitus, recurrent urination, hyperkalemia, and atrial fibrillation. The patient de nies any burning urination, nausea, vomiting, chest pain, abdominal pain, constipation, or diarrhea. Past Medical/past Surgical History: As per HPI. Social History: Nondrinker, nondrinker. Medications: Vancomycin, Zosyn. See MAR for other medication. Allergies: NO KNOWN DRUG ALLERGIES. Review of Systems: A 10-point review was performed. Physical Examination: Vital Signs: Temperature 97.7, pulse 66, respirations 18, blood pressure 124/66. HEENT: Unremarkable. Neck: Supple. Lungs: Basal crackles. Heart: S1, S2. Regular. Abdomen: Distended. Bowel sounds present. Tympanic sound also heard. Extremities: Trace edema. Laboratory Data: WBC 5.5, hemoglobin 8.7, platelets are 143. Chemistry shows sodium 145, potassium 4.2, chloride 115, bicarb 20, BUN 94, creatinine 1.92, glucose 127. The patient denies any other pro blem. Chest x-ray is also showing right-sided infiltrate with possibility of pneumonia. Assessment And Plan: Pancytopenia in a 78-year-old male with significant history of liver cirrhosis secondary to hepatitis C and ascites, chronic renal insufficiency, right lower lobe pneumonia, urinar y tract infection secondary to Enterococcus faecalis. Currently on empiric vancomycin and Zosyn, can be switched to oral Cipro on discharge versus IV antibiotic depending on patient absorption as patie nt has multiple medical problems. We will follow the patient as needed. Thank you, Dr. Love, for consult. NF/MODL Voice ID: [id number] Report ID: [id number]
[2019-07-17] MEDS: INSULIN GLARGINE 100 UNITS/ML SQ SCH (21:45)
[2019-07-17] MEDS ORDERED: VANCOMYCIN 1.5 GM in NA CHLORIDE 0.9% 500 ML IVPB SCH (23:00)
[2019-07-18] MEDS: PIPER/TAZO/NS 2.25gm 2.25 GM/50 ML BAG IVPB SCH (01:06)
[2019-07-18] MEDS: LEVOTHYROXINE 0.125 MG PO SCH (06:08)
[2019-07-18 06:31] LABS: Absolute Lymphocytes (CBC) 0.3 K/uL (0.7-4.9); Basophils % 0.1 % (0-1.3); Hematocrit 25.8 % (39.6-49.0); Lymphocytes % 2.7 % (15.3-44.8); MPV 7.9 fL (7.6-11.3); RBC Red Blood Cell Count 3.09 M/uL (4.33-5.43)
[2019-07-18 07:05] LABS: Albumin 2.5 g/dL (3.4-5.0); Magnesium 1.8 mg/dL (1.8-2.4); Phosphorus 2.7 mg/dL (2.5-4.9); Potassium 4.3 mmol/L (3.5-5.1)
[2019-07-18] MEDS: INSULIN -REGULAR HUMAN 50 UNIT/0.5 ML ML SQ SCH ×4 (07:30→21:00)
[2019-07-18] MEDS: HYDRALAZINE HCL 25 MG TABLET PO SCH ×2 (08:49→21:21)
[2019-07-18] MEDS: SILDENAFIL CITRATE 20 MG TABLET PO SCH ×3 (08:49→21:24)
[2019-07-18] MEDS: APIXABAN 2.5 MG TABLET PO SCH ×2 (08:50→21:21)
[2019-07-18] MEDS: GLIMEPIRIDE 4 MG PO SCH ×2 (08:52→17:00)
[2019-07-18] MEDS: HOME MED 1 EA UNK (Fluticasone/Vilanterol [Breo Ellipta 200-25 Mcg Inh] 1 EACH) IH SCH (08:53)
[2019-07-18] MEDS: BISOPROLOL FUMARATE 10 MG PO SCH (08:54)
[2019-07-18 09:02] LABS: Anisocytosis 2+; Blood Morphology Comment NOTED (NOT SEEN); Platelet Estimate ADEQ; Poikilocytosis 2+
[2019-07-18] MEDS: levoFLOXacin 250 MG TAB PO SCH (09:06)
[2019-07-18] MEDS: SOD FERRIC GLUC COMPLX/SUCROSE 250 MG in NA CHLORIDE 0.9% 250 ML IV SCH (09:07)
--- NOTE | 2019-07-18 14:44 | P.PN ---
Subjective Date of Service: 07/18/19 Chief Complaint: SOB Subjective: Improving pt with pulm HTN and CKD, presented with SOB today Cr stable feels better Sodium and chloride mildly elevated , encouraged to increase fluid intake Plan for discharge tomorrow Cleared for discharge from nephrology point of view Physical Examination - Vital Signs Temperature: 97.8 F Blood Pressure: 117/66 Pulse: 70 Respirations: 18 Pulse Ox (%): 98 - Physical Exam General: Alert, In no apparent distress HEENT: Atraumatic Neck: Supple, Without JVD or thyroid abnormality Respiratory: Diminished Cardiovascular: No edema, Regular rate/rhythm, Normal S1 S2, Abnormal S3 Musculoskeletal: Other (Rt lefg chronic venous stasis ) - Studies Laboratory Data (last 24 hrs) 07/18/19 06:11: Sodium 147 H, Potassium 4.3, BUN 93 H, Creatinine 1.91 H, Glucose 79, Phosphorus 2.7, Magnesium 1.8 07/18/19 06:11: WBC 10.1 D, Hgb 8.6 L, Hct 25.8 L, Plt Count 142 L 07/17/19 14:40: Total Bilirubin 0.3, AST 14 L, ALT 16, Alkaline Phosphatase 45 Medications List Reviewed: Yes Assessment And Plan - Current Problems (Diagnosis) (1) AGUILAR (acute kidney injury) Current Visit: Yes Status: Chronic (2) Hyperkalemia Current Visit: Yes Status: Chronic - Plan AGUILAR on CKD Cr improved and stable now UA: mild protein, no bld hyperkalemia lresolved Pulmonary HTN on sildenafil HTN controlled DM as per PCP COPD exacerbation cont inhalers
--- NOTE | 2019-07-18 18:38 | PN ---
Subjective: Mr. Llanes's swelling is lot better. Denies any chest pain, nausea, or vomiting. His breathing is improved. Objective: Vital signs: Blood pressure 117/66, afebrile. Chest: Clear. Heart: Regular. Abdomen: No guarding, no rebound, no rigidity. Laboratory Data: White count 10,100, hemoglobin 8.6, hematocrit 25, platelets 142,000. BUN 29, crea tinine 1.91, sodium 147. His blood culture was a contaminant. Urine culture is also contaminant. H is UA is totally normal. This is called a clean-catch or unclean-catch culture. I would ignore this urine culture. Chest x-ray, follow up pneumonia, clinically improved. Assessment And Plan: 1.Sepsis from pneumonia, clinically improved. Continue Levaquin. Stop Zosyn at this poi nt, cultures have not shown any need of coverage with Zosyn at this point. 2.Leukopenia has improved after Dr. Zaragoza took care of it with medication like Neupogen. 3.Renal failure, chronic. Baseline creatinine 75/1.7, currently slightly high with possible benefit from gentle hydration. 4.Cirrhosis of liver and pancytopenia from it. Currently, stable. 5.History of deep venous thrombosis on elective anticoagulation, Eliquis 2.5 mg p.o. b.i.d. 6.Atrial fibrillation, controlled with medications, which is came to the hospital and he is on currently Eliquis to prevent into thromboembolism. 7.Severe pulmonary hypertension that will be problem at this point. He is on small dose of Viagra for it. Prognosis guarded. RVD/MODL Voice ID: [id number] Report ID: [id number]
--- NOTE | 2019-07-18 20:11 | PN ---
Subjective: The patient is lying in bed. No new acute event. Chart reviewed. Objective: Vital Signs: Temperature 97.8, pulse 70, respirations 18, blood pressure 117/66 Lungs: Basal crackles, right more than left. Heart: S1, S2. Regular. Abdomen: Soft, nontender. Bowel sounds present. Extremities: No edema. Laboratory Data: Shows WBC 10.1, hemoglobin 8.6, platelets 142. Sodium 147, potassium 4.3, chloride 116, bicarb 22, BUN 93, creatinine 1.91. Micro data: He is growing Enterococcus faecalis in the urine. Assessment And Plan: Urinary tract infection and right lower lobe pneumonia. The patient can be dis charged on Cipro for the total course of 7 days. We will follow the patient as needed. NARGIS/ELENI Voice ID: [id number] Report ID: [id number]
[2019-07-18] MEDS: INSULIN GLARGINE 100 UNITS/ML SQ SCH (21:27)
--- NOTE | 2019-07-18 22:17 | CON ---
Date of Consultation: 07/17/2019 Reason For Consultation: Neutropenia, anemia. Brief History Of Present Illness: Mr. Llanes is a 78-year-old gentleman who is known to me from the [facility] where he was seen last year for a history of recurrent deep vein thrombosis. After evaluation, indefinite anticoagulation was recommended for him and he was discharged back to his primary care physician, Dr. Love. During my evaluation, we also discovered that he has chronic liver disease with ascites and he was diagnosed and treated for hepatitis C within the past year. He presented to the hospital with worsening shortness of breath and leg swelling as well as a productive sputum. He denies any history of fever or chills at home, though he did spike a temperature of a 102 Fahrenheit 2 days ago while in the hospital. The admitting diagnosis was pneumonia and fluid overload. I am consulted for a low white blood count on admission. CBC on 10/2019 revealed a white count of 2.5 thousand with an absolute neutrophil count of 1600, which dropped to 0.8 thousand on 07/16/2019 with an absolute neutrophil count of 700. His hemoglobin has also been low. It was 9.4 g/dL on admission and dropped to 8.8 g/dL on the . Subjectively, Mr. Llanes was visiting with his son and grandson when I saw him this evening. He says he feels much better. His breathing has improved as has the lower extremity swelling. He denies any cough, chest pain, or hemoptysis. Physical Examination: Vital Signs: Reveal that he is afebrile. Temperature was 98.2 Fahrenheit at 4 p.m. with a pulse of 69, respirations 18 per minute, blood pressure 123/66, saturating at around 98% on 2 L. General: Reveals pallor. There is no cyanosis, clubbing or icterus noted. Lymphatics: Lymph node survey reveals no palpable lymphadenopathy in the neck, axilla, or groin. HEENT: Reveals no thrush or petechiae or hemorrhage. Chest: Reveals bilateral vesicular breath sounds which are absent at the right base posteriorly. No bronchial breath sounds were heard. No rales or rhonchi were noted. Heart: Sounds reveal normal S1, S2. No gallops or murmurs. Abdomen: Mildly distended. There is no evidence of ascites or palpable liver or spleen. Neurologic: He is completely alert, oriented with no focal deficits. Extremities: Show evidence of 2+ edema on the right side, but some chronic venous dermatitis. Laboratory Data: From earlier today, white count was 5.5 thousand, hemoglobin 8.7 g/dL with a platelet count of 143,000. WBC differential revealed a left shift with bandemia. Chemistries revealed normal sodium of 145, potassium was 4.2, BUN and creatinine were elevated at 94 and 1.92 respectively. His albumin has been low at 2.4 g/dL. B12 and folate were normal. An iron profile done earlier revealed a very low transferrin saturation of 3.6%. Ferritin was 125.1. Blood glucoses have been consistently elevated at over 300. His BNP on admission was 31,000+. Assessment And Plan: Mr. Llanes is a 78-year-old gentleman with multiple medical issues includin. Neutropenia. I suspect the neutropenia is due to the acute infection (pneumonia) causing decompensation of bone marrow. It is possible he may have some myelodysplasia as well. I had started him on Granix on 07/16/2019 and his white count has responded nicely and is normal today. We will discontinue the Granix. Plan to follow up with him in clinic in 2 weeks and recheck his white count to make sure that it returns to normal or baseline. If his WBC count continues to be low, then he will need further evaluation and possibly a bone marrow biopsy as well. 2. Anemia. He has iron deficiency anemia due to chronic GI blood loss and anemia due to chronic kidney disease. I have started him on IV Ferrlecit 250 mg daily x4 days. I will follow up with him in clinic to recheck his iron profile and replenish iron intravenously first. He may then need erythropoietin if his hemoglobin remains less than 11 in spite of correction of the iron deficiency. 3. Recurrent deep vein thrombosis. He is currently on dose reduced Xarelto for prophylaxis which he will continue on indefinitely. I will follow up with him in clinic 2 weeks after discharge. AP/MODL Voice ID: [id number] Report ID: [id number] RAINER
[2019-07-19 04:56] LABS: Albumin 2.5 g/dL (3.4-5.0); Phosphorus 2.4 mg/dL (2.5-4.9); Potassium 4.2 mmol/L (3.5-5.1)
[2019-07-19] MEDS: LEVOTHYROXINE 0.125 MG PO SCH (05:32)
[2019-07-19] MEDS: INSULIN -REGULAR HUMAN 50 UNIT/0.5 ML ML SQ SCH ×3 (07:30→17:14)
[2019-07-19 07:41] LABS: Hepatitis C Virus RNA (PCR)log <1.18 log IU/mL
[2019-07-19] MEDS: levoFLOXacin 250 MG TAB PO SCH (08:27)
[2019-07-19] MEDS: APIXABAN 2.5 MG TABLET PO SCH (08:28)
[2019-07-19] MEDS: HYDRALAZINE HCL 25 MG TABLET PO SCH (08:28)
[2019-07-19] MEDS: GLIMEPIRIDE 4 MG PO SCH ×2 (08:31→17:14)
[2019-07-19] MEDS: BISOPROLOL FUMARATE 10 MG PO SCH (08:31)
[2019-07-19] MEDS: HOME MED 1 EA UNK (Fluticasone/Vilanterol [Breo Ellipta 200-25 Mcg Inh] 1 EACH) IH SCH (08:33)
[2019-07-19] MEDS: SILDENAFIL CITRATE 20 MG TABLET PO SCH ×2 (08:35→14:43)
[2019-07-19] MEDS: SOD FERRIC GLUC COMPLX/SUCROSE 250 MG in NA CHLORIDE 0.9% 250 ML IV SCH (10:28)
[2019-07-19] MEDS ORDERED: IPRATROPIUM BROM 0.5MG/2.5ML IH PRN (15:00)
--- NOTE | 2019-07-19 15:03 | PN ---
Subjective: Patient lying in bed. No new acute event. Objective: Vital Signs: Remained stable. Temperature 97.9, pulse 72, respirations 14, blood pressu re 121/65. Lungs: Basilar crackles. Heart: S1, S2. Regular. Abdomen: Soft, nontender. Bowel sounds present. Extremities: No edema. Laboratory Data: No new for today. Microdata with Enterococcus faecalis in the urine. Patient is c urrently being treated with home medications. Assessment And Plan: Urinary tract infection with Enterococcus faecalis, to be treated with Cipro. Right lower lobe pneumonitis. Continue supportive care. We will follow patient as needed. NF/MODL Voice ID: [id number] Report ID: [id number]
[2019-07-19 16:07] VITALS: O2SAT 97
[2019-07-19 16:14] VITALS: BP 155/78; TEMP 97.8
[2019-07-19 20:25] LABS: HBsAG Nonreactive (Nonreactive)
--- NOTE | 2019-07-19 20:46 | P.DS ---
Admission Date: 07/14/19 Discharge Date: 07/19/19 Disposition: ROUTINE DISCHARGE Discharge Condition: FAIR Reason for Admission: SOB - Problems (1) Severe pulmonary arterial systolic hypertension Status: Chronic (2) A-fib Status: Acute (3) Cirrhosis of liver Status: Chronic (4) AGUILAR (acute kidney injury) Status: Chronic (5) Hyperkalemia Status: Chronic Hospital Course: MR. SHIRLEY CAME WITH A FIB. FOR WHICH HE IS ON ELIQIUS AND RATE IS CONTROLLED. WE LATER FOUND THAT HE HAD SEVERE PULMONARY HTN FOR THAT HE RECEIVED SIDENAFIL BUT COST IS TOO HIGH SO I CHANGED TO TADALAFIL IN PHARMACY. HE ALSO HAD PNEUMONIA FROM WHICH HE GOT SEVERELY DYSPNEIC AND IMPROVED AFTER ABX. HE BECAME SEVERELY NEUTROPENIC AND IMPROVED ON NEUPOGEN. HE NORMALLY HAS BASELINE CIRRHOSIS RELATED PANCYTOPENIA. HIS RENAL DYSFUNCTION IS ABOUT THE SAME AT [place]. HE IS SENT HOME ON LEVAQUIN, ELIQUIS 2.5 MG BID, WE STOPPED XARELTO AND I HENRIK FU IN OFFICE. Vital Signs/Physical Exam: Temp Pulse Resp BP Pulse Ox 97.8 F 73 19 155/78 H 94 07/19/19 16:00 07/19/19 16:00 07/19/19 16:00 07/19/19 16:00 07/19/19 16:00 General: Mild distress HEENT: Atraumatic, PERRLA, EOMI Neck: Supple, JVD not distended Respiratory: Clear to auscultation bilaterally, Normal air movement Cardiovascular: Regular rate/rhythm, Normal S1 S2 Gastrointestinal: Normal bowel sounds, No tenderness Musculoskeletal: No tenderness Integumentary: No rashes Neurological: Normal speech, Normal tone, Normal affect Lymphatics: No axilla or inguinal lymphadenopathy Laboratory Data at Discharge: WBC 10.1 K/uL (4.3-10.9) D 07/18/19 06:11 Hgb 8.6 g/dL (13.6-17.9) L 07/18/19 06:11 Hct 25.8 % (39.6-49.0) L 07/18/19 06:11 Plt Count 142 K/uL (152-406) L 07/18/19 06:11 PT 18.7 SECONDS (9.5-12.5) H 07/13/19 14:30 INR 1.61 07/13/19 14:30 APTT 38.6 SECONDS (24.3-36.9) H 07/13/19 14:30 Sodium 147 mmol/L (136-145) H 07/19/19 04:08 Potassium 4.2 mmol/L (3.5-5.1) 07/19/19 04:08 BUN 87 mg/dL (7-18) H 07/19/19 04:08 Creatinine 1.71 mg/dL (0.55-1.3) H 07/19/19 04:08 Glucose 137 mg/dL (74-106) H 07/19/19 04:08 Phosphorus 2.4 mg/dL (2.5-4.9) L 07/19/19 04:08 Magnesium 1.8 mg/dL (1.8-2.4) 07/18/19 06:11 Total Bilirubin 0.3 mg/dL (0.2-1.0) 07/17/19 14:40 AST 14 U/L (15-37) L 07/17/19 14:40 ALT 16 U/L (12-78) 07/17/19 14:40 Alkaline Phosphatase 45 U/L (45-117) 07/17/19 14:40 Troponin I 0.07 ng/mL (0.0-0.045) H 07/15/19 14:13 Home Medications: Bisoprolol Fumarate [Zebeta*] 10 mg PO DAILY 07/13/19 Fluticasone/Vilanterol [Breo Ellipta 200-25 Mcg INH] 1 each IH DAILY 07/13/19 Glimepiride [Amaryl] 4 mg PO BID 07/13/19 Levothyroxine [Synthroid*] 125 mcg PO [id number] 07/13/19 Apixaban [Eliquis *] 2.5 mg PO BID #180 tablet 07/19/19 Hydralazine [Apresoline*] 50 mg PO BID #180 tab 07/19/19 Sildenafil Citrate [Revatio*] 20 mg PO TID #90 tablet 07/19/19 New Medications: Apixaban [Eliquis *] 2.5 mg PO BID #180 tablet Hydralazine [Apresoline*] 50 mg PO BID #180 tab Sildenafil Citrate [Revatio*] 20 mg PO TID #90 tablet Followup: Viki Ibarra MD [ACTIVE - CAN ADMIT] - (follow up in two weeks) King Love MD [Primary Care Provider] - (call to schedule appoinment) Michelle David MD [ACTIVE - CAN ADMIT] - 1-2 Weeks (call to schedule an appointment)
--- NOTE | 2019-07-20 03:40 | PN ---
Date of Progress Note: 07/19/2019 History: Patient was admitted with acute kidney injury secondary to prerenal, patient developed over volume but leukopenia response to Neupogen. Physical Examination: Vital Signs: When I saw the patient blood pressure of 155/78, pulse of 73. Chest: Clear to auscultation. Heart: S1, S2. Regular. Abdomen: Soft, nontender. Extremities: No edema. Neurologic: Oriented. Laboratory Data: WBC 10.1, H and H 8.6/25.8, platelets 442. Sodium 147, potassium 4.2, bicarb 23, B UN 7, creatinine 1.7, calcium 8.4, phosphorus 2.4. PC ratio 0.9. Serologies still pending. Hepatit is negative B and C. Assessment And Plan: 1.Acute kidney injury secondary to cardiorenal/prerenal recovered back to baseline. We will continu e to monitor. 2.Hypertension. Controlled optimal. Continue current treatment. 3.Chronic obstructive pulmonary disease exacerbation, stable. Continue current treatment. 4.Cirrhosis with pancytopenia by primary. Current Medications: 1.Eliquis. 2.Insulin. 3.Breathing treatment. 4.Loperamide. 5. . MA/MODL Voice ID: [id number] Report ID: [id number]
[2019-07-20 06:15] LABS: Albumin, (SPE) 2.6 g/dL (3.8-4.8); Alpha-1-Globulins 0.4 g/dL (0.2-0.3); Alpha-2-Globulins 0.6 g/dL (0.5-0.9); INTERPRETATION REPORT
[2019-07-20 10:49] LABS: Vitamin D 1,25-Dihydroxy Total 29 pg/mL (18-72); Vitamin D,1,25-OH2, D2 <8 pg/mL
== END 2019-07-19 17:58 | disposition home or self-care (01) | DRG 871 ==
LOC: 4TH 13:39 → OBSVTOIN 07-14 16:29
PROVIDERS: ADMIT Internal Medicine; ATTEND Internal Medicine
DX: A41.9 Sepsis, unspecified organism (principal); J18.9 Pneumonia, unspecified organism; J44.0 Chronic obstructive pulmonary disease with (acute) lower respiratory infection; J44.1 Chronic obstructive pulmonary disease with (acute) exacerbation; N18.4 Chronic kidney disease, stage 4 (severe); N17.9 Acute kidney failure, unspecified; R64 Cachexia; D61.818 Other pancytopenia; N39.0 Urinary tract infection, site not specified; R06.03 Acute respiratory distress; I12.9 Hypertensive chronic kidney disease with stage 1 through stage 4 chronic kidney disease, or unspecified chronic kidney disease; E11.22 Type 2 diabetes mellitus with diabetic chronic kidney disease; E11.65 Type 2 diabetes mellitus with hyperglycemia; I48.91 Unspecified atrial fibrillation; E87.5 Hyperkalemia; I27.20 Pulmonary hypertension, unspecified; K74.60 Unspecified cirrhosis of liver; Z68.21 Body mass index [BMI] 21.0-21.9, adult; B19.20 Unspecified viral hepatitis C without hepatic coma; E03.9 Hypothyroidism, unspecified; R01.1 Cardiac murmur, unspecified; E86.0 Dehydration; B95.2 Enterococcus as the cause of diseases classified elsewhere; Z86.718 Personal history of other venous thrombosis and embolism; Z85.118 Personal history of other malignant neoplasm of bronchus and lung; Z85.810 Personal history of malignant neoplasm of tongue; Z79.01 Long term (current) use of anticoagulants
CPT/HCPCS: 36415; 71045; 71046; 71250; 74176; 76770; 80048; 80069; 80076; 80202; 81003; 81015; 82043; 82306; 82550; 82553; 82570; 82607; 82652; 82728; 82746; 82947; 82962; 83036; 83520; 83540; 83735; 83880; 83970; 84100; 84156; 84165; 84443; 84466; 84484; 85025; 85044; 85379; 85610; 85730; 86021; 86038; 86160; 86225; 86317; 86430; 86704; 86706; 87040; 87077; 87086; 87088; 87186; 87205; 87340; 87522; 93005; 93306; 93970; 94640; 94660; 94760; G0378; G0379; J1446; J1940; J2916; J2920; J2930; J3475; J7030

== ENCOUNTER 2020-02-16 17:07 | Observation (INO) | payer OTHER ==
--- OUTSIDE RECORDS SUMMARY | 2020-02-16 17:17 | XMS REPORT ---
:1940 Author Organization [facility] t Address [address] [place] [address] Care Team Providers Name Role Phone ABELINO SANTOS Unavailable Unavailable Tere MIJARES Unavailable Unavailable NANCY WEINBERG Unavailable Unavailable Problems This patient has no known problems. Allergies, Adverse Reactions, Alerts This patient has no known allergies or adverse reactions. Medications This patient has no known medications. Results Test Description Test Time Test Comments Text Results Atomic Results Result Comments U/S, ABDOMINAL, 2019-12-14 Referring: Dr. Malik FINAL REPORT PAT IENT ID: COMPLETE 12:13:00 [facility] [id number] TECHNIQUE: Exam:->cirrhosis, HCV, Grayscale ultrasou nd of abnormal liver imaging, the abdomen. RAYNE CATION: screen for liver cancer cirrhosis, HCV, a bnormal liver imaging, screen for liver cancer. COMPARISON: Ultrasound from 05/24/2019. FINDINGS: MIDLINE VASCULATURE: The visualized inferior vena cava is unremarkable. The maximum visualized aortic diameter is 2.6 cm. LIVER: Coarsened hepatic echotexture. Mildly nodular liver contour. No focal lesions. The main portal vein is patent and measures 1.4 cm in diameter. BILIARY:Gallbladder: No gallbladder distention. The gallbladder wall is mildly thickened, likely due to the adjacent liver disease. There is likely sludge and/or nodular lung stones layering in the gallbladder. Negative sonographic Andrade sign.Common bile duct measures 0.4 cm, within normal limits. No intrahepatic biliary ductal dilatation. PANCREAS: Incompletely visualized due to overlying bowel gas. The partially visualized pancreatic neck and body are normal. SPLEEN: The spleen is enlarged at 19.2 cm in length. PERITONEUM: Trace perihepatic ascites. KIDNEYS: Normal in size bilaterally. No hydronephrosis. No sonographically evident solid mass lesion. A left lower pole anechoic renal lesion with posterior acoustic enhancement measures 1.7 x 1.3 x 1.6 cm. Additional left lower pole anechoic renal lesion with posterior acoustic enhancement measures 0.7 x 0.5 x 0.7 cm and is consistent with a simple renal cyst. IMPRESSION: 1.No focal hepatic lesion. 2.Cirrhosis with sequelae of portal hypertension including splenomegaly and trace perihepatic ascites. 3.Sludge and/or nonshadowing stones layer in the gallbladder. No definitive signs for acute cholecystitis. Signed: Charbel Perez MDReport Verified Date/Time: 12/14/2019 12:13:08 Reading Location: [address] Radiology Reading Room A FETOPROTEIN (AFP), TUMOR MARKER 2019-12-14 11:21:00 Test Item Value Reference Range Comments ALPHA-FETOPROTEIN (BEAKER) (test code = 1094) < ng/mL <1 0.0 Diabetes Trainer ID - CAROLYNE MHEPATIC FUNCTION [id number] 10:34:00 Test Item Value Reference Range Comments TOTAL PROTEIN (BEAKER) (test code = 770) 7.2 gm/dL 6.0-8.3 ALBUMIN (BEAKER) (test code = 1145) 4.0 g/dL 3.5-5.0 BILIRUBIN TOTAL (BEAKER) (test code = 377) 0.8 mg/dL 0.2-1 .2 BILIRUBIN DIRECT (BEAKER) (test code = 706) 0.4 mg/dL 0.1- 0.5 ALKALINE PHOSPHATASE (BEAKER) (test code = 346) 81 U/L 40-150 AST (SGOT) (BEAKER) (test code = 353) 16 U/L 5-34 ALT (SGPT) (BEAKER) (test code = 347) 10 U/L 6-55 Diabetes Trainer ID - LABASIC METABOLIC [id number] 10:34:00 Test Item Value Reference Range Comments SODIUM (BEAKER) (test 138 meq/L 136-145 code = 381) POTASSIUM (BEAKER) (test 5.3 meq/L 3.5-5.1 code = 379) CHLORIDE (BEAKER) (test 108 meq/L 98-107 code = 382) CO2 (BEAKER) (test code = 24 meq/L 22-29 355) BLOOD UREA NITROGEN 47 mg/dL 7-21 (BEAKER) (test code = 354) CREATININE (BEAKER) (test 1.74 mg/dL 0.57-1.25 code = 358) GLUCOSE RANDOM (BEAKER) 254 mg/dL 70-105 (test code = 652) CALCIUM (BEAKER) (test 9.3 mg/dL 8.4-10.2 code = 697) EGFR (BEAKER) (test code 38 mL/min/1.73 sq m EST IMATED GFR IS NOT = 1092) ACCURATE CREA TININE CLEARANCE IN PRE DICTING GLOMERULAR FILTR ATION RATE. ESTIMATED GFR IS NOT APPLICABLE F OR DIALYSIS PATIENT S. Diabetes Trainer ID - LAPROTHROMBIN [id number] 10:05:00 Test Item Value Reference Range Comments PROTIME (BEAKER) (test code = 759) 17.3 seconds 11.9-14.2 INR (BEAKER) (test code = 370) 1.5 <=5.9 Effective 03/29/2019: PT Reference Range ChangeNew: 11.9-14.2 Previous: 11.7- 14.7RECOMMENDED COUMADIN/WARFARIN INR THERAPY RANGESSTANDARD DOSE: 2.0-3.0 Includes: PROPHYLAXIS for venous thrombosis, systemic embolization; TREATMENT for venous thrombosis and/or pulmonary embolus.HIGH RISK: Target INR is2.5-3.5 for patients wiht mechanical heart valves.CBC W/PLT COUNT & AUTO [id number] 09:54:00 Test Item Value Reference Range Comments WHITE BLOOD CELL COUNT (BEAKER) (test code = 775) 3.9 K/ L 3.5-10.5 RED BLOOD CELL COUNT (BEAKER) (test code = 761) 3.86 M/ L 4.63-6.08 HEMOGLOBIN (BEAKER) (test code = 410) 11.8 GM/DL 13.7-17.5 HEMATOCRIT (BEAKER) (test code = 411) 36.8 % 40.1-51.0 MEAN CORPUSCULAR VOLUME (BEAKER) (test code = 95.3 fL 79 .0-92.2 753) MEAN CORPUSCULAR HEMOGLOBIN (BEAKER) (test code = 30.6 pg 25.7-32.2 751) MEAN CORPUSCULAR HEMOGLOBIN CONC (BEAKER) (test 32.1 GM/DL 32.3-36.5 code = 752) RED CELL DISTRIBUTION WIDTH (BEAKER) (test code = 14.7 % 11.6-14.4 412) PLATELET COUNT (BEAKER) (test code = 756) 88 K/CU MM 150-45 0 MEAN PLATELET VOLUME (BEAKER) (test code = 754) 10.4 fL 9.4-12.4 NUCLEATED RED BLOOD CELLS (BEAKER) (test code = 0 /100 WBC 0-0 413) NEUTROPHILS RELATIVE PERCENT (BEAKER) (test code 71 % = 429) LYMPHOCYTES RELATIVE PERCENT (BEAKER) (test code 15 % = 430) MONOCYTES RELATIVE PERCENT (BEAKER) (test code = 10 % 431) EOSINOPHILS RELATIVE PERCENT (BEAKER) (test code 2 % = 432) BASOPHILS RELATIVE PERCENT (BEAKER) (test code = 1 % 437) NEUTROPHILS ABSOLUTE COUNT (BEAKER) (test code = 2.76 K/ L 1.78-5.38 670) LYMPHOCYTES ABSOLUTE COUNT (BEAKER) (test code = 0.59 K/ L 1.32-3.57 414) MONOCYTES ABSOLUTE COUNT (BEAKER) (test code = 0.39 K/ L 0 .30-0.82 415) EOSINOPHILS ABSOLUTE COUNT (BEAKER) (test code = 0.09 K/ L 0.04-0.54 416) BASOPHILS ABSOLUTE COUNT (BEAKER) (test code = 0.03 K/ L 0 .01-0.08 417) IMMATURE GRANULOCYTES-RELATIVE PERCENT (BEAKER) 1 % 0-1 (test code = 2801) U/S, ABDOMINAL, [id number] 16:36:00Referring: Dr. King Zaman for Exam:->cirrhosis screen for liver cancerFINAL REPORT TECHNIQUE: Grayscale ultrasound of the abdomen. INDICATION: cirrhosis screen for liver cancer. COMPARISON: MRI from 02/14/2018. FINDINGS: MIDLINE VASCULATURE: The visualized inferior vena cava is patent. Portal vein is patent. The maximum visualized aortic diameter is 2.6 cm. Mild reversal of flow in the hepatic veins is likely due to volume overload. LIVER: Coarsened hepatic echotexture with a nodular liver contour. No focal lesions. The main portal vein measures1.3 cm. BILIARY:Gallbladder: Several stones layering the gallbladder. And addition, there are areas of ringdown artifact in the gallbladder. No gallbladder wall thickening, pericholecystic fluid, or distention. Negative sonographic Andrade sign.Common bile duct measures 0.3 cm, within normal limits. Nointrahepatic biliary ductal dilatation. PANCREAS: Incompletely visualized due to overlying bowel gas. The partially visualized pancreatic neck and body are normal. SPLEEN: The spleen is enlarged at 16 cm. PERITONEUM: Trace perihepatic ascites. KIDNEYS: Normal in size bilaterally. No hydronephrosis. Nosonographically evident solid mass lesion. A left lower pole anechoic renal lesion measures 2.2 x 1.6 x 1.2 cm and has posterior acoustic enhancement, most consistent with a simple renal cyst. An additional, smaller anechoic left lower pole renal lesion measures 0.7 x 0.7 x 0.6 cm and is consistent with a simple renal cyst. IMPRESSION: 1.No focal hepatic lesion. 2.Cirrhosis with sequelae of portal hypertension including small volume perihepatic ascites and splenomegaly. 3.Reversal of flow in the hep atic veins is likely due to volume overload. 4.Cholelithiasis without acute cholecystitis. In addition, there is also likely cholesterolosis in the gallbladder. Signed: Charbel Perez MDReport Verified Date/Time: 05/24/2019 16:36:26 Reading Location: [address] Radiology Reading Room HEPATITIS C PCR, [id number] 08:28:00 Test Item Value Reference Range Comments HCV RESULT COMPONENT (BEAKER) HCV RNA not detected HCV RNA not d etected (test code = 2699) This test uses a Real-Time Polymerase Chain Reaction (RT-PCR) methodology and was performed using [employer] Ampliprep/FRANCHESKA TaqMan HCV test kit version 2.0 ([employer]).Reportable range for this assay is 15 - 100,000,000 IU per mL (1.18 - 8.00 Log IU/mL).ALPHA FETOPROTEIN (AFP), TUMOR [id number] 13:19:00 Test Item Value Reference Range Comments ALPHA-FETOPROTEIN (BEAKER) (test code = 1094) < ng/mL <1 0.0 For May 2019HEPATIC FUNCTION [id number] 13:11:00 Test Item Value Reference Range Comments TOTAL PROTEIN (BEAKER) (test code = 770) 7.3 gm/dL 6.0-8.3 ALBUMIN (BEAKER) (test code = 1145) 3.8 g/dL 3.5-5.0 BILIRUBIN TOTAL (BEAKER) (test code = 377) 0.6 mg/dL 0.2-1 .2 BILIRUBIN DIRECT (BEAKER) (test code = 706) 0.3 mg/dL 0.1- 0.5 ALKALINE PHOSPHATASE (BEAKER) (test code = 346) 63 U/L 40-150 AST (SGOT) (BEAKER) (test code = 353) 19 U/L 5-34 ALT (SGPT) (BEAKER) (test code = 347) 11 U/L 6-55 For May 2019For May 2019BASIC METABOLIC [id number] 13:11:00 Test Item Value Reference Range Comments SODIUM (BEAKER) (test 136 meq/L 136-145 code = 381) POTASSIUM (BEAKER) (test 5.8 meq/L 3.5-5.1 code = 379) CHLORIDE (BEAKER) (test 112 meq/L 98-107 code = 382) CO2 (BEAKER) (test code = 19 meq/L 22-29 355) BLOOD UREA NITROGEN 54 mg/dL 7-21 (BEAKER) (test code = 354) CREATININE (BEAKER) (test 1.62 mg/dL 0.57-1.25 code = 358) GLUCOSE RANDOM (BEAKER) 243 mg/dL 70-105 (test code = 652) CALCIUM (BEAKER) (test 9.1 mg/dL 8.4-10.2 code = 697) EGFR (BEAKER) (test code 41 mL/min/1.73 sq m EST IMATED GFR IS NOT = 1092) ACCURATE CREA TININE CLEARANCE IN PRE DICTING GLOMERULAR FILTR ATION RATE. ESTIMATED GFR IS NOT APPLICABLE F OR DIALYSIS PATIENT S. For May 2019For May 2019PROTHROMBIN [id number] 12:48:00 Test Item Value Reference Range Comments PROTIME (BEAKER) (test code = 759) 17.0 seconds 11.9-14.2 INR (BEAKER) (test code = 370) 1.5 <=5.9 Effective 03/29/2019: PT Reference Range ChangeNew: 11.9-14.2 Previous: 11.7- 14.7RECOMMENDED COUMADIN/WARFARIN INR THERAPY RANGESSTANDARD DOSE: 2.0-3.0 Includes: PROPHYLAXIS for venous thrombosis, systemic embolization; TREATMENT for venous thrombosis and/or pulmonary embolus.HIGH RISK: Target INR is2.5-3.5 for patients wiht mechanical heart valves.For May 2019[facility] W/[facility]T [facility] & AUTO [id number] 12:42:00 Test Item Value Reference Range Comments WHITE BLOOD CELL COUNT (BEAKER) (test code = 2.2 K/ L 3.5 -10.5 775) RED BLOOD CELL COUNT (BEAKER) (test code = 761) 3.50 M/ L 4.63-6.08 HEMOGLOBIN (BEAKER) (test code = 410) 9.5 GM/DL 13.7-17.5 HEMATOCRIT (BEAKER) (test code = 411) 31.9 % 40.1-51.0 MEAN CORPUSCULAR VOLUME (BEAKER) (test code = 91.1 fL 79 .0-92.2 753) MEAN CORPUSCULAR HEMOGLOBIN (BEAKER) (test code 27.1 pg 25.7-32.2 = 751) MEAN CORPUSCULAR HEMOGLOBIN CONC (BEAKER) (test 29.8 GM/DL 32.3-36.5 code = 752) RED CELL DISTRIBUTION WIDTH (BEAKER) (test code 18.4 % 11.6-14.4 = 412) PLATELET COUNT (BEAKER) (test code = 756) 111 K/CU MM 150-45 0 MEAN PLATELET VOLUME (BEAKER) (test code = 754) 11.9 fL 9.4-12.4 NUCLEATED RED BLOOD CELLS (BEAKER) (test code = 0 /100 WBC 0-0 413) NEUTROPHILS RELATIVE PERCENT (BEAKER) (test code 61 % = 429) LYMPHOCYTES RELATIVE PERCENT (BEAKER) (test code 21 % = 430) MONOCYTES RELATIVE PERCENT (BEAKER) (test code = 14 % 431) EOSINOPHILS RELATIVE PERCENT (BEAKER) (test code 3 % = 432) BASOPHILS RELATIVE PERCENT (BEAKER) (test code = 1 % 437) NEUTROPHILS ABSOLUTE COUNT (BEAKER) (test code = 1.33 K/ L 1.78-5.38 670) LYMPHOCYTES ABSOLUTE COUNT (BEAKER) (test code = 0.45 K/ L 1.32-3.57 414) MONOCYTES ABSOLUTE COUNT (BEAKER) (test code = 0.31 K/ L 0 .30-0.82 415) EOSINOPHILS ABSOLUTE COUNT (BEAKER) (test code = 0.06 K/ L 0.04-0.54 416) BASOPHILS ABSOLUTE COUNT (BEAKER) (test code = 0.02 K/ L 0 .01-0.08 417) IMMATURE GRANULOCYTES-RELATIVE PERCENT (BEAKER) 1 % 0-1 (test code = 2801) HEPATITIS C PCR, [id number] 15:48:00 Test Item Value Reference Range Comments HCV RESULT COMPONENT (BEAKER) HCV RNA not detected HCV RNA not d etected (test code = 2699) This test uses a Real-Time Polymerase Chain Reaction (RT-PCR) methodology and was performed using [employer] Ampliprep/FR[employer]CH[employer]KA TaqMan HCV test kit version 2.0 ([employer]).Reportable range for this assay is 15 - 100,000,000 IU per mL (1.18 - 8.00 Log IU/mL).HEPATITIS B SURFACE ANTIBODY 2019-02-09 15:27:00 Test Item Value Reference Range Comments HEPATITIS B SURFACE ANTIBODY (BEAKER) (test code = < mIU/mL <8.0 647) CBC W/PLT COUNT & AUTO [id number] 13:45:00 Test Item Value Reference Range Comments WHITE BLOOD CELL COUNT (BEAKER) (test code = 1.7 K/ L 3.5 -10.5 775) RED BLOOD CELL COUNT (BEAKER) (test code = 761) 3.54 M/ L 4.63-6.08 HEMOGLOBIN (BEAKER) (test code = 410) 10.1 GM/DL 13.7-17.5 HEMATOCRIT (BEAKER) (test code = 411) 33.3 % 40.1-51.0 MEAN CORPUSCULAR VOLUME (BEAKER) (test code = 94.1 fL 79 .0-92.2 753) MEAN CORPUSCULAR HEMOGLOBIN (BEAKER) (test code 28.5 pg 25.7-32.2 = 751) MEAN CORPUSCULAR HEMOGLOBIN CONC (BEAKER) (test 30.3 GM/DL 32.3-36.5 code = 752) RED CELL DISTRIBUTION WIDTH (BEAKER) (test code 15.3 % 11.6-14.4 = 412) PLATELET COUNT (BEAKER) (test code = 756) 112 K/CU MM 150-45 0 MEAN PLATELET VOLUME (BEAKER) (test code = 754) 12.0 fL 9.4-12.4 NUCLEATED RED BLOOD CELLS (BEAKER) (test code = 0 /100 WBC 0-0 413) (CELLAVISION MANUAL DIFF)2019-02-09 13:45:00 Test Item Value Reference Range Comments NEUTROPHILS - REL (CELLAVISION)(BEAKER) (test 56 % code = 2816) LYMPHOCYTES - REL (CELLAVISION)(BEAKER) (test 17 % code = 2817) MONOCYTES - REL (CELLAVISION)(BEAKER) (test code 21 % = 2818) EOSINOPHILS - REL (CELLAVISION)(BEAKER) (test 6 % code = 2819) ATYPICAL LYMPHOCYTES - REL (CELLAVISION)(BEAKER) 1 % 0-0 (test code = 2829) NEUTROPHILS - ABS (CELLAVISION)(BEAKER) (test 0.95 K/ul 1. 78-5.38 code = 2830) LYMPHOCYTES - ABS (CELLAVISION)(BEAKER) (test 0.29 K/ul 1. 32-3.57 code = 2831) MONOCYTES - ABS (CELLAVISION)(BEAKER) (test code 0.36 K/uL 0.30-0.82 = 2832) EOSINOPHILS - ABS (CELLAVISION)(BEAKER) (test 0.10 K/uL 0. 04-0.54 code = 2834) ATYPICAL LYMPHOCYTES - ABS (CELLAVISION)(BEAKER) 0.02 K/uL 0.00-0.00 (test code = 2858) TOTAL COUNTED (BEAKER) (test code = 1351) 100 MANUAL NRBC PER 100 CELLS (BEAKER) (test code = 1 /100 WBC 0-0 1353) WBC MORPHOLOGY (BEAKER) (test code = 487) Normal PLT MORPHOLOGY (BEAKER) (test code = 486) Normal POLYCHROMATOPHILLIC RBCS(BEAKER) (test code = 1+ few 478) HYPOCHROMIA (BEAKER) (test code = 963) 1+ few OVALOCYTES (BEAKER) (test code = 477) 1+ few ARTIFACT (CELLAVISION)(BEAKER) (test code = 3432) Present PLATELET CONCENTRATION (CELLAVISION)(BEAKER) Decreased (test code = 3438) Received comment: User comments: Slide comments:HEPATIC FUNCTION [id number] 13:10:00 Test Item Value Reference Range Comments TOTAL PROTEIN (BEAKER) (test code = 770) 7.3 gm/dL 6.0-8.3 ALBUMIN (BEAKER) (test code = 1145) 3.9 g/dL 3.5-5.0 BILIRUBIN TOTAL (BEAKER) (test code = 377) 0.6 mg/dL 0.2-1 .2 BILIRUBIN DIRECT (BEAKER) (test code = 706) 0.3 mg/dL 0.1- 0.5 ALKALINE PHOSPHATASE (BEAKER) (test code = 346) 60 U/L 40-150 AST (SGOT) (BEAKER) (test code = 353) 21 U/L 5-34 ALT (SGPT) (BEAKER) (test code = 347) 11 U/L 6-55 BASIC METABOLIC [id number] 13:10:00 Test Item Value Reference Range Comments SODIUM (BEAKER) (test 138 meq/L 136-145 code = 381) POTASSIUM (BEAKER) (test 5.2 meq/L 3.5-5.1 code = 379) CHLORIDE (BEAKER) (test 110 meq/L 98-107 code = 382) CO2 (BEAKER) (test code = 20 meq/L 22-29 355) BLOOD UREA NITROGEN 59 mg/dL 7-21 (BEAKER) (test code = 354) CREATININE (BEAKER) (test 1.56 mg/dL 0.57-1.25 code = 358) GLUCOSE RANDOM (BEAKER) 173 mg/dL 70-105 (test code = 652) CALCIUM (BEAKER) (test 9.5 mg/dL 8.4-10.2 code = 697) EGFR (BEAKER) (test code 43 mL/min/1.73 sq m EST IMATED GFR IS NOT = 1092) ACCURATE CREA TININE CLEARANCE IN PRE DICTING GLOMERULAR FILTR ATION RATE. ESTIMATED GFR IS NOT APPLICABLE F OR DIALYSIS PATIENT S. PROTHROMBIN [id number] 13:00:00 Test Item Value Reference Range Comments PROTIME (BEAKER) (test code = 759) 24.7 seconds 11.7-14.7 INR (BEAKER) (test code = 370) 2.2 <=5.9 RECOMMENDED COUMADIN/WARFARIN INR THERAPY RANGESSTANDARD DOSE: 2.0 - 3.0 Includes: PROPHYLAXIS forvenous thrombosis, systemic embolization; TREATMENT for venous thrombosis and/or pulmonary embolus.HIGH RISK: Target INR is 2.5-3.5 for patients with mechanical heart valves.HEPATIC FUNCTION [id number] 17:48:00 Test Item Value Reference Range Comments TOTAL PROTEIN (BEAKER) (test code = 770) 7.5 gm/dL 6.0-8.3 ALBUMIN (BEAKER) (test code = 1145) 4.0 g/dL 3.5-5.0 BILIRUBIN TOTAL (BEAKER) (test code = 377) 0.6 mg/dL 0.2-1 .2 BILIRUBIN DIRECT (BEAKER) (test code = 706) 0.3 mg/dL 0.1- 0.5 ALKALINE PHOSPHATASE (BEAKER) (test code = 346) 67 U/L 40-150 AST (SGOT) (BEAKER) (test code = 353) 24 U/L 5-34 ALT (SGPT) (BEAKER) (test code = 347) 14 U/L 6-55 BASIC METABOLIC [id number] 17:48:00 Test Item Value Reference Range Comments SODIUM (BEAKER) (test 138 meq/L 136-145 code = 381) POTASSIUM (BEAKER) (test 5.4 meq/L 3.5-5.1 code = 379) CHLORIDE (BEAKER) (test 111 meq/L 98-107 code = 382) CO2 (BEAKER) (test code = 20 meq/L 22-29 355) BLOOD UREA NITROGEN 61 mg/dL 7-21 (BEAKER) (test code = 354) CREATININE (BEAKER) (test 1.58 mg/dL 0.57-1.25 code = 358) GLUCOSE RANDOM (BEAKER) 196 mg/dL 70-105 (test code = 652) CALCIUM (BEAKER) (test 9.5 mg/dL 8.4-10.2 code = 697) EGFR (BEAKER) (test code 43 mL/min/1.73 sq m EST IMATED GFR IS NOT = 1092) ACCURATE CREA TININE CLEARANCE IN PRE DICTING GLOMERULAR FILTR ATION RATE. ESTIMATED GFR IS NOT APPLICABLE F OR DIALYSIS PATIENT S. CBC W/PLT COUNT & AUTO [id number] 17:28:00 Test Item Value Reference Range Comments WHITE BLOOD CELL COUNT (BEAKER) (test code = 2.9 K/ L 3.5 -10.5 775) RED BLOOD CELL COUNT (BEAKER) (test code = 761) 3.47 M/ L 4.63-6.08 HEMOGLOBIN (BEAKER) (test code = 410) 9.9 GM/DL 13.7-17.5 HEMATOCRIT (BEAKER) (test code = 411) 33.8 % 40.1-51.0 MEAN CORPUSCULAR VOLUME (BEAKER) (test code = 97.4 fL 79 .0-92.2 753) MEAN CORPUSCULAR HEMOGLOBIN (BEAKER) (test code 28.5 pg 25.7-32.2 = 751) MEAN CORPUSCULAR HEMOGLOBIN CONC (BEAKER) (test 29.3 GM/DL 32.3-36.5 code = 752) RED CELL DISTRIBUTION WIDTH (BEAKER) (test code 15.4 % 11.6-14.4 = 412) PLATELET COUNT (BEAKER) (test code = 756) 106 K/CU MM 150-45 0 MEAN PLATELET VOLUME (BEAKER) (test code = 754) 12.1 fL 9.4-12.4 NUCLEATED RED BLOOD CELLS (BEAKER) (test code = 0 /100 WBC 0-0 413) NEUTROPHILS RELATIVE PERCENT (BEAKER) (test code 68 % = 429) LYMPHOCYTES RELATIVE PERCENT (BEAKER) (test code 19 % = 430) MONOCYTES RELATIVE PERCENT (BEAKER) (test code = 10 % 431) EOSINOPHILS RELATIVE PERCENT (BEAKER) (test code 1 % = 432) BASOPHILS RELATIVE PERCENT (BEAKER) (test code = 1 % 437) NEUTROPHILS ABSOLUTE COUNT (BEAKER) (test code = 1.95 K/ L 1.78-5.38 670) LYMPHOCYTES ABSOLUTE COUNT (BEAKER) (test code = 0.56 K/ L 1.32-3.57 414) MONOCYTES ABSOLUTE COUNT (BEAKER) (test code = 0.30 K/ L 0 .30-0.82 415) EOSINOPHILS ABSOLUTE COUNT (BEAKER) (test code = 0.04 K/ L 0.04-0.54 416) BASOPHILS ABSOLUTE COUNT (BEAKER) (test code = 0.02 K/ L 0 .01-0.08 417) IMMATURE GRANULOCYTES-RELATIVE PERCENT (BEAKER) 0 % 0-1 (test code = 2801) PROTHROMBIN [id number] 17:27:00 Test Item Value Reference Range Comments PROTIME (BEAKER) (test code = 759) 18.9 seconds 11.7-14.7 INR (BEAKER) (test code = 370) 1.6 <=5.9 RECOMMENDED COUMADIN/WARFARIN INR THERAPY RANGESSTANDARD DOSE: 2.0 - 3.0 Includes: PROPHYLAXIS forvenous thrombosis, systemic embolization; TREATMENT for venous thrombosis and/or pulmonary embolus.HIGH RISK: Target INR is 2.5-3.5 for patients with mechanical heart valves.HEPATIC FUNCTION [id number] 15:00:00 Test Item Value Reference Range Comments TOTAL PROTEIN (BEAKER) (test code = 770) 7.5 gm/dL 6.0-8.3 ALBUMIN (BEAKER) (test code = 1145) 3.9 g/dL 3.5-5.0 BILIRUBIN TOTAL (BEAKER) (test code = 377) 0.7 mg/dL 0.2-1 .2 BILIRUBIN DIRECT (BEAKER) (test code = 706) 0.3 mg/dL 0.1- 0.5 ALKALINE PHOSPHATASE (BEAKER) (test code = 346) 68 U/L 40-150 AST (SGOT) (BEAKER) (test code = 353) 22 U/L 5-34 ALT (SGPT) (BEAKER) (test code = 347) 11 U/L 6-55 BASIC METABOLIC [id number] 15:00:00 Test Item Value Reference Range Comments SODIUM (BEAKER) (test 139 meq/L 136-145 code = 381) POTASSIUM (BEAKER) (test 5.1 meq/L 3.5-5.1 code = 379) CHLORIDE (BEAKER) (test 108 meq/L 98-107 code = 382) CO2 (BEAKER) (test code = 20 meq/L 22-29 355) BLOOD UREA NITROGEN 52 mg/dL 7-21 (BEAKER) (test code = 354) CREATININE (BEAKER) (test 1.71 mg/dL 0.57-1.25 code = 358) GLUCOSE RANDOM (BEAKER) 188 mg/dL 70-105 (test code = 652) CALCIUM (BEAKER) (test 9.2 mg/dL 8.4-10.2 code = 697) EGFR (BEAKER) (test code 39 mL/min/1.73 sq m EST IMATED GFR IS NOT = 1092) ACCURATE CREA TININE CLEARANCE IN PRE DICTING GLOMERULAR FILTR ATION RATE. ESTIMATED GFR IS NOT APPLICABLE F OR DIALYSIS PATIENT S. PROTHROMBIN [id number] 14:44:00 Test Item Value Reference Range Comments PROTIME (BEAKER) (test code = 759) 22.0 seconds 11.7-14.7 INR (BEAKER) (test code = 370) 1.9 <=5.9 RECOMMENDED COUMADIN/WARFARIN INR THERAPY RANGESSTANDARD DOSE: 2.0 - 3.0 Includes: PROPHYLAXIS forvenous thrombosis, systemic embolization; TREATMENT for venous thrombosis and/or pulmonary embolus.HIGH RISK: Target INR is 2.5-3.5 for patients with mechanical heart valves.CBC W/PLT COUNT & AUTO DIFFERENTIAL 2018-11-03 14:38:00 Test Item Value Reference Range Comments WHITE BLOOD CELL COUNT (BEAKER) (test code = 4.2 K/ L 3.5 -10.5 775) RED BLOOD CELL COUNT (BEAKER) (test code = 761) 3.64 M/ L 4.63-6.08 HEMOGLOBIN (BEAKER) (test code = 410) 10.5 GM/DL 13.7-17.5 HEMATOCRIT (BEAKER) (test code = 411) 35.3 % 40.1-51.0 MEAN CORPUSCULAR VOLUME (BEAKER) (test code = 97.0 fL 79 .0-92.2 753) MEAN CORPUSCULAR HEMOGLOBIN (BEAKER) (test code 28.8 pg 25.7-32.2 = 751) MEAN CORPUSCULAR HEMOGLOBIN CONC (BEAKER) (test 29.7 GM/DL 32.3-36.5 code = 752) RED CELL DISTRIBUTION WIDTH (BEAKER) (test code 15.5 % 11.6-14.4 = 412) PLATELET COUNT (BEAKER) (test code = 756) 125 K/CU MM 150-45 0 MEAN PLATELET VOLUME (BEAKER) (test code = 754) 12.1 fL 9.4-12.4 NUCLEATED RED BLOOD CELLS (BEAKER) (test code = 0 /100 WBC 0-0 413) NEUTROPHILS RELATIVE PERCENT (BEAKER) (test code 75 % = 429) LYMPHOCYTES RELATIVE PERCENT (BEAKER) (test code 15 % = 430) MONOCYTES RELATIVE PERCENT (BEAKER) (test code = 8 % 431) EOSINOPHILS RELATIVE PERCENT (BEAKER) (test code 1 % = 432) BASOPHILS RELATIVE PERCENT (BEAKER) (test code = 1 % 437) NEUTROPHILS ABSOLUTE COUNT (BEAKER) (test code = 3.13 K/ L 1.78-5.38 670) LYMPHOCYTES ABSOLUTE COUNT (BEAKER) (test code = 0.63 K/ L 1.32-3.57 414) MONOCYTES ABSOLUTE COUNT (BEAKER) (test code = 0.34 K/ L 0 .30-0.82 415) EOSINOPHILS ABSOLUTE COUNT (BEAKER) (test code = 0.04 K/ L 0.04-0.54 416) BASOPHILS ABSOLUTE COUNT (BEAKER) (test code = 0.03 K/ L 0 .01-0.08 417) IMMATURE GRANULOCYTES-RELATIVE PERCENT (BEAKER) 1 % 0-1 (test code = 2801) HEPATIC FUNCTION [id number] 15:18:00 Test Item Value Reference Range Comments TOTAL PROTEIN (BEAKER) (test code = 770) 7.7 gm/dL 6.0-8.3 ALBUMIN (BEAKER) (test code = 1145) 3.9 g/dL 3.5-5.0 BILIRUBIN TOTAL (BEAKER) (test code = 377) 0.6 mg/dL 0.2-1 .2 BILIRUBIN DIRECT (BEAKER) (test code = 706) 0.3 mg/dL 0.1- 0.5 ALKALINE PHOSPHATASE (BEAKER) (test code = 346) 64 U/L 40-150 AST (SGOT) (BEAKER) (test code = 353) 22 U/L 5-34 ALT (SGPT) (BEAKER) (test code = 347) 11 U/L 6-55 BASIC METABOLIC [id number] 15:18:00 Test Item Value Reference Range Comments SODIUM (BEAKER) (test 136 meq/L 136-145 code = 381) POTASSIUM (BEAKER) (test 4.5 meq/L 3.5-5.1 code = 379) CHLORIDE (BEAKER) (test 109 meq/L 98-107 code = 382) CO2 (BEAKER) (test code = 21 meq/L 22-29 355) BLOOD UREA NITROGEN 45 mg/dL 7-21 (BEAKER) (test code = 354) CREATININE (BEAKER) (test 1.40 mg/dL 0.57-1.25 code = 358) GLUCOSE RANDOM (BEAKER) 146 mg/dL 70-105 (test code = 652) CALCIUM (BEAKER) (test 9.3 mg/dL 8.4-10.2 code = 697) EGFR (BEAKER) (test code 49 mL/min/1.73 sq m EST IMATED GFR IS NOT = 1092) ACCURATE CREA TININE CLEARANCE IN PRE DICTING GLOMERULAR FILTR ATION RATE. ESTIMATED GFR IS NOT APPLICABLE F OR DIALYSIS PATIENT S. PROTHROMBIN [id number] 14:59:00 Test Item Value Reference Range Comments PROTIME (BEAKER) (test code = 759) 21.6 seconds 11.7-14.7 INR (BEAKER) (test code = 370) 1.9 <=5.9 RECOMMENDED COUMADIN/WARFARIN INR THERAPY RANGESSTANDARD DOSE: 2.0 - 3.0 Includes: PROPHYLAXIS forvenous thrombosis, systemic embolization; TREATMENT for venous thrombosis and/or pulmonary embolus.HIGH RISK: Target INR is 2.5-3.5 for patients with mechanical heart valves.CBC W/PLT COUNT & AUTO DIFFERENTIAL 2018-10-20 14:48:00 Test Item Value Reference Range Comments WHITE BLOOD CELL COUNT (BEAKER) (test code = 775) 3.0 K/ L 3.5-10.5 RED BLOOD CELL COUNT (BEAKER) (test code = 761) 3.53 M/ L 4.63-6.08 HEMOGLOBIN (BEAKER) (test code = 410) 10.4 GM/DL 13.7-17.5 HEMATOCRIT (BEAKER) (test code = 411) 34.1 % 40.1-51.0 MEAN CORPUSCULAR VOLUME (BEAKER) (test code = 96.6 fL 79 .0-92.2 753) MEAN CORPUSCULAR HEMOGLOBIN (BEAKER) (test code = 29.5 pg 25.7-32.2 751) MEAN CORPUSCULAR HEMOGLOBIN CONC (BEAKER) (test 30.5 GM/DL 32.3-36.5 code = 752) RED CELL DISTRIBUTION WIDTH (BEAKER) (test code = 15.3 % 11.6-14.4 412) PLATELET COUNT (BEAKER) (test code = 756) 94 K/CU MM 150-45 0 MEAN PLATELET VOLUME (BEAKER) (test code = 754) 12.3 fL 9.4-12.4 NUCLEATED RED BLOOD CELLS (BEAKER) (test code = 0 /100 WBC 0-0 413) NEUTROPHILS RELATIVE PERCENT (BEAKER) (test code 65 % = 429) LYMPHOCYTES RELATIVE PERCENT (BEAKER) (test code 21 % = 430) MONOCYTES RELATIVE PERCENT (BEAKER) (test code = 11 % 431) EOSINOPHILS RELATIVE PERCENT (BEAKER) (test code 2 % = 432) BASOPHILS RELATIVE PERCENT (BEAKER) (test code = 1 % 437) NEUTROPHILS ABSOLUTE COUNT (BEAKER) (test code = 1.97 K/ L 1.78-5.38 670) LYMPHOCYTES ABSOLUTE COUNT (BEAKER) (test code = 0.64 K/ L 1.32-3.57 414) MONOCYTES ABSOLUTE COUNT (BEAKER) (test code = 0.34 K/ L 0 .30-0.82 415) EOSINOPHILS ABSOLUTE COUNT (BEAKER) (test code = 0.06 K/ L 0.04-0.54 416) BASOPHILS ABSOLUTE COUNT (BEAKER) (test code = 0.02 K/ L 0 .01-0.08 417) IMMATURE GRANULOCYTES-RELATIVE PERCENT (BEAKER) 0 % 0-1 (test code = 2801) HEPATITIS C PCR, [id number] 06:27:00 Test Item Value Reference Range Comments HCV RESULT COMPONENT (BEAKER) HCV RNA not detected HCV RNA not d etected (test code = 2699) This test uses a Real-Time Polymerase Chain Reaction (RT-PCR) methodology and was performed using [employer] Ampliprep/[employer] TaqMan HCV test kit version 2.0 ([employer]).Reportable range for this assay is 15 - 100,000,000 IU per mL (1.18 - 8.00 Log IU/mL).ALPHA FETOPROTEIN (AFP), TUMOR [id number] 19:20:00 Test Item Value Reference Range Comments ALPHA-FETOPROTEIN (BEAKER) (test code = 1094) < ng/mL <1 0.0 HEPATIC FUNCTION [id number] 17:58:00 Test Item Value Reference Range Comments TOTAL PROTEIN (BEAKER) (test code = 770) 7.6 gm/dL 6.0-8.3 ALBUMIN (BEAKER) (test code = 1145) 3.8 g/dL 3.5-5.0 BILIRUBIN TOTAL (BEAKER) (test code = 377) 0.5 mg/dL 0.2-1 .2 BILIRUBIN DIRECT (BEAKER) (test code = 706) 0.2 mg/dL 0.1- 0.5 ALKALINE PHOSPHATASE (BEAKER) (test code = 346) 64 U/L 40-150 AST (SGOT) (BEAKER) (test code = 353) 22 U/L 5-34 ALT (SGPT) (BEAKER) (test code = 347) 10 U/L 6-55 BASIC METABOLIC [id number] 17:58:00 Test Item Value Reference Range Comments SODIUM (BEAKER) (test 139 meq/L 136-145 code = 381) POTASSIUM (BEAKER) (test 5.1 meq/L 3.5-5.1 code = 379) CHLORIDE (BEAKER) (test 111 meq/L 98-107 code = 382) CO2 (BEAKER) (test code = 21 meq/L 22-29 355) BLOOD UREA NITROGEN 47 mg/dL 7-21 (BEAKER) (test code = 354) CREATININE (BEAKER) (test 1.46 mg/dL 0.57-1.25 code = 358) GLUCOSE RANDOM (BEAKER) 163 mg/dL 70-105 (test code = 652) CALCIUM (BEAKER) (test 9.4 mg/dL 8.4-10.2 code = 697) EGFR (BEAKER) (test code 47 mL/min/1.73 sq m EST IMATED GFR IS NOT = 1092) ACCURATE CREA TININE CLEARANCE IN PRE DICTING GLOMERULAR FILTR ATION RATE. ESTIMATED GFR IS NOT APPLICABLE F OR DIALYSIS PATIENT S. PROTHROMBIN [id number] 17:37:00 Test Item Value Reference Range Comments PROTIME (BEAKER) (test code = 759) 20.0 seconds 11.7-14.7 INR (BEAKER) (test code = 370) 1.7 <=5.9 RECOMMENDED COUMADIN/WARFARIN INR THERAPY RANGESSTANDARD DOSE: 2.0 - 3.0 Includes: PROPHYLAXIS forvenous thrombosis, systemic embolization; TREATMENT for venous thrombosis and/or pulmonary embolus.HIGH RISK: Target INR is 2.5-3.5 for patients with mechanical heart valves.CBC W/PLT COUNT & AUTO DIFFERENTIAL 2018-10-06 17:33:00 Test Item Value Reference Range Comments WHITE BLOOD CELL COUNT (BEAKER) (test code = 3.2 K/ L 3.5 -10.5 775) RED BLOOD CELL COUNT (BEAKER) (test code = 761) 3.44 M/ L 4.63-6.08 HEMOGLOBIN (BEAKER) (test code = 410) 10.0 GM/DL 13.7-17.5 HEMATOCRIT (BEAKER) (test code = 411) 33.4 % 40.1-51.0 MEAN CORPUSCULAR VOLUME (BEAKER) (test code = 97.1 fL 79 .0-92.2 753) MEAN CORPUSCULAR HEMOGLOBIN (BEAKER) (test code 29.1 pg 25.7-32.2 = 751) MEAN CORPUSCULAR HEMOGLOBIN CONC (BEAKER) (test 29.9 GM/DL 32.3-36.5 code = 752) RED CELL DISTRIBUTION WIDTH (BEAKER) (test code 14.5 % 11.6-14.4 = 412) PLATELET COUNT (BEAKER) (test code = 756) 139 K/CU MM 150-45 0 MEAN PLATELET VOLUME (BEAKER) (test code = 754) 12.0 fL 9.4-12.4 NUCLEATED RED BLOOD CELLS (BEAKER) (test code = 0 /100 WBC 0-0 413) NEUTROPHILS RELATIVE PERCENT (BEAKER) (test code 66 % = 429) LYMPHOCYTES RELATIVE PERCENT (BEAKER) (test code 19 % = 430) MONOCYTES RELATIVE PERCENT (BEAKER) (test code = 11 % 431) EOSINOPHILS RELATIVE PERCENT (BEAKER) (test code 2 % = 432) BASOPHILS RELATIVE PERCENT (BEAKER) (test code = 1 % 437) NEUTROPHILS ABSOLUTE COUNT (BEAKER) (test code = 2.14 K/ L 1.78-5.38 670) LYMPHOCYTES ABSOLUTE COUNT (BEAKER) (test code = 0.62 K/ L 1.32-3.57 414) MONOCYTES ABSOLUTE COUNT (BEAKER) (test code = 0.36 K/ L 0 .30-0.82 415) EOSINOPHILS ABSOLUTE COUNT (BEAKER) (test code = 0.06 K/ L 0.04-0.54 416) BASOPHILS ABSOLUTE COUNT (BEAKER) (test code = 0.04 K/ L 0 .01-0.08 417) IMMATURE GRANULOCYTES-RELATIVE PERCENT (BEAKER) 0 % 0-1 (test code = 2801) HEPATIC FUNCTION [id number] 15:56:00 Test Item Value Reference Range Comments TOTAL PROTEIN (BEAKER) (test code = 770) 7.9 gm/dL 6.0-8.3 ALBUMIN (BEAKER) (test code = 1145) 3.8 g/dL 3.5-5.0 BILIRUBIN TOTAL (BEAKER) (test code = 377) 0.7 mg/dL 0.2-1 .2 BILIRUBIN DIRECT (BEAKER) (test code = 706) 0.4 mg/dL 0.1- 0.5 ALKALINE PHOSPHATASE (BEAKER) (test code = 346) 70 U/L 40-150 AST (SGOT) (BEAKER) (test code = 353) 19 U/L 5-34 ALT (SGPT) (BEAKER) (test code = 347) 11 U/L 6-55 BASIC METABOLIC [id number] 15:56:00 Test Item Value Reference Range Comments SODIUM (BEAKER) (test 135 meq/L 136-145 code = 381) POTASSIUM (BEAKER) (test 4.7 meq/L 3.5-5.1 code = 379) CHLORIDE (BEAKER) (test 107 meq/L 98-107 code = 382) CO2 (BEAKER) (test code = 21 meq/L 22-29 355) BLOOD UREA NITROGEN 49 mg/dL 7-21 (BEAKER) (test code = 354) CREATININE (BEAKER) (test 1.56 mg/dL 0.57-1.25 code = 358) GLUCOSE RANDOM (BEAKER) 200 mg/dL 70-105 (test code = 652) CALCIUM (BEAKER) (test 9.4 mg/dL 8.4-10.2 code = 697) EGFR (BEAKER) (test code 43 mL/min/1.73 sq m EST IMATED GFR IS NOT = 1092) ACCURATE CREA TININE CLEARANCE IN PRE DICTING GLOMERULAR FILTR ATION RATE. ESTIMATED GFR IS NOT APPLICABLE F OR DIALYSIS PATIENT S. PROTHROMBIN [id number] 15:43:00 Test Item Value Reference Range Comments PROTIME (BEAKER) (test code = 759) 20.7 seconds 11.7-14.7 INR (BEAKER) (test code = 370) 1.8 <=5.9 RECOMMENDED COUMADIN/WARFARIN INR THERAPY RANGESSTANDARD DOSE: 2.0 - 3.0 Includes: PROPHYLAXIS forvenous thrombosis, systemic embolization; TREATMENT for venous thrombosis and/or pulmonary embolus.HIGH RISK: Target INR is 2.5-3.5 for patients with mechanical heart valves.CBC W/PLT COUNT & AUTO DIFFERENTIAL 2018-09-20 15:37:00 Test Item Value Reference Range Comments WHITE BLOOD CELL COUNT (BEAKER) (test code = 4.7 K/ L 3.5 -10.5 775) RED BLOOD CELL COUNT (BEAKER) (test code = 761) 3.72 M/ L 4.63-6.08 HEMOGLOBIN (BEAKER) (test code = 410) 10.9 GM/DL 13.7-17.5 HEMATOCRIT (BEAKER) (test code = 411) 35.4 % 40.1-51.0 MEAN CORPUSCULAR VOLUME (BEAKER) (test code = 95.2 fL 79 .0-92.2 753) MEAN CORPUSCULAR HEMOGLOBIN (BEAKER) (test code 29.3 pg 25.7-32.2 = 751) MEAN CORPUSCULAR HEMOGLOBIN CONC (BEAKER) (test 30.8 GM/DL 32.3-36.5 code = 752) RED CELL DISTRIBUTION WIDTH (BEAKER) (test code 14.4 % 11.6-14.4 = 412) PLATELET COUNT (BEAKER) (test code = 756) 114 K/CU MM 150-45 0 MEAN PLATELET VOLUME (BEAKER) (test code = 754) 11.2 fL 9.4-12.4 NUCLEATED RED BLOOD CELLS (BEAKER) (test code = 0 /100 WBC 0-0 413) NEUTROPHILS RELATIVE PERCENT (BEAKER) (test code 78 % = 429) LYMPHOCYTES RELATIVE PERCENT (BEAKER) (test code 11 % = 430) MONOCYTES RELATIVE PERCENT (BEAKER) (test code = 10 % 431) EOSINOPHILS RELATIVE PERCENT (BEAKER) (test code 1 % = 432) BASOPHILS RELATIVE PERCENT (BEAKER) (test code = 0 % 437) NEUTROPHILS ABSOLUTE COUNT (BEAKER) (test code = 3.63 K/ L 1.78-5.38 670) LYMPHOCYTES ABSOLUTE COUNT (BEAKER) (test code = 0.50 K/ L 1.32-3.57 414) MONOCYTES ABSOLUTE COUNT (BEAKER) (test code = 0.45 K/ L 0 .30-0.82 415) EOSINOPHILS ABSOLUTE COUNT (BEAKER) (test code = 0.05 K/ L 0.04-0.54 416) BASOPHILS ABSOLUTE COUNT (BEAKER) (test code = 0.02 K/ L 0 .01-0.08 417) IMMATURE GRANULOCYTES-RELATIVE PERCENT (BEAKER) 0 % 0-1 (test code = 2801) HEPATIC FUNCTION [id number] 17:34:00 Test Item Value Reference Range Comments TOTAL PROTEIN (BEAKER) (test code = 770) 7.7 gm/dL 6.0-8.3 ALBUMIN (BEAKER) (test code = 1145) 3.9 g/dL 3.5-5.0 BILIRUBIN TOTAL (BEAKER) (test code = 377) 0.5 mg/dL 0.2-1 .2 BILIRUBIN DIRECT (BEAKER) (test code = 706) 0.3 mg/dL 0.1- 0.5 ALKALINE PHOSPHATASE (BEAKER) (test code = 346) 75 U/L 40-150 AST (SGOT) (BEAKER) (test code = 353) 23 U/L 5-34 ALT (SGPT) (BEAKER) (test code = 347) 19 U/L 6-55 BASIC METABOLIC [id number] 17:34:00 Test Item Value Reference Range Comments SODIUM (BEAKER) (test 138 meq/L 136-145 code = 381) POTASSIUM (BEAKER) (test 5.5 meq/L 3.5-5.1 code = 379) CHLORIDE (BEAKER) (test 113 meq/L 98-107 code = 382) CO2 (BEAKER) (test code = 20 meq/L 22-29 355) BLOOD UREA NITROGEN 51 mg/dL 7-21 (BEAKER) (test code = 354) CREATININE (BEAKER) (test 1.49 mg/dL 0.57-1.25 code = 358) GLUCOSE RANDOM (BEAKER) 240 mg/dL 70-105 (test code = 652) CALCIUM (BEAKER) (test 9.5 mg/dL 8.4-10.2 code = 697) EGFR (BEAKER) (test code 46 mL/min/1.73 sq m EST IMATED GFR IS NOT = 1092) ACCURATE CREA TININE CLEARANCE IN PRE DICTING GLOMERULAR FILTR ATION RATE. ESTIMATED GFR IS NOT APPLICABLE F OR DIALYSIS PATIENT S. PROTHROMBIN [id number] 17:14:00 Test Item Value Reference Range Comments PROTIME (BEAKER) (test code = 759) 18.3 seconds 11.7-14.7 INR (BEAKER) (test code = 370) 1.5 <=5.9 RECOMMENDED COUMADIN/WARFARIN INR THERAPY RANGESSTANDARD DOSE: 2.0 - 3.0 Includes: PROPHYLAXIS forvenous thrombosis, systemic embolization; TREATMENT for venous thrombosis and/or pulmonary embolus.HIGH RISK: Target INR is 2.5-3.5 for patients with mechanical heart valves.CBC W/PLT COUNT & AUTO DIFFERENTIAL 2018-09-15 17:03:00 Test Item Value Reference Range Comments WHITE BLOOD CELL COUNT (BEAKER) (test code = 775) 2.9 K/ L 3.5-10.5 RED BLOOD CELL COUNT (BEAKER) (test code = 761) 3.28 M/ L 4.63-6.08 HEMOGLOBIN (BEAKER) (test code = 410) 9.6 GM/DL 13.7-17.5 HEMATOCRIT (BEAKER) (test code = 411) 32.0 % 40.1-51.0 MEAN CORPUSCULAR VOLUME (BEAKER) (test code = 97.6 fL 79 .0-92.2 753) MEAN CORPUSCULAR HEMOGLOBIN (BEAKER) (test code = 29.3 pg 25.7-32.2 751) MEAN CORPUSCULAR HEMOGLOBIN CONC (BEAKER) (test 30.0 GM/DL 32.3-36.5 code = 752) RED CELL DISTRIBUTION WIDTH (BEAKER) (test code = 14.8 % 11.6-14.4 412) PLATELET COUNT (BEAKER) (test code = 756) 99 K/CU MM 150-45 0 MEAN PLATELET VOLUME (BEAKER) (test code = 754) 12.6 fL 9.4-12.4 NUCLEATED RED BLOOD CELLS (BEAKER) (test code = 0 /100 WBC 0-0 413) NEUTROPHILS RELATIVE PERCENT (BEAKER) (test code 68 % = 429) LYMPHOCYTES RELATIVE PERCENT (BEAKER) (test code 19 % = 430) MONOCYTES RELATIVE PERCENT (BEAKER) (test code = 12 % 431) EOSINOPHILS RELATIVE PERCENT (BEAKER) (test code 1 % = 432) BASOPHILS RELATIVE PERCENT (BEAKER) (test code = 1 % 437) NEUTROPHILS ABSOLUTE COUNT (BEAKER) (test code = 1.94 K/ L 1.78-5.38 670) LYMPHOCYTES ABSOLUTE COUNT (BEAKER) (test code = 0.54 K/ L 1.32-3.57 414) MONOCYTES ABSOLUTE COUNT (BEAKER) (test code = 0.33 K/ L 0 .30-0.82 415) EOSINOPHILS ABSOLUTE COUNT (BEAKER) (test code = 0.03 K/ L 0.04-0.54 416) BASOPHILS ABSOLUTE COUNT (BEAKER) (test code = 0.02 K/ L 0 .01-0.08 417) IMMATURE GRANULOCYTES-RELATIVE PERCENT (BEAKER) 0 % 0-1 (test code = 2801) HEPATIC FUNCTION [id number] 18:36:00 Test Item Value Reference Range Comments TOTAL PROTEIN (BEAKER) (test 7.9 gm/dL 6.0-8.3 Spe cimen slightly hemolyzed code = 770) ALBUMIN (BEAKER) (test code = 3.9 g/dL 3.5-5.0 Sp ecimen slightly hemolyzed 1145) BILIRUBIN TOTAL (BEAKER) (test 0.6 mg/dL 0.2-1.2 S pecimen slightly hemolyzed code = 377) BILIRUBIN DIRECT (BEAKER) (test 0.2 mg/dL 0.1-0.5 Specimen slightly hemolyzed code = 706) ALKALINE PHOSPHATASE (BEAKER) 89 U/L 40-150 (test code = 346) AST (SGOT) (BEAKER) (test code 30 U/L 5-34 S pecimen slightly hemolyzed = 353) ALT (SGPT) (BEAKER) (test code 47 U/L 6-55 S pecimen slightly hemolyzed = 347) BASIC METABOLIC [id number] 18:00:00 Test Item Value Reference Range Comments SODIUM (BEAKER) (test 140 meq/L 136-145 code = 381) POTASSIUM (BEAKER) (test 5.6 meq/L 3.5-5.1 Specime n slightly code = 379) hemolyzed CHLORIDE (BEAKER) (test 111 meq/L 98-107 code = 382) CO2 (BEAKER) (test code = 20 meq/L 22-29 355) BLOOD UREA NITROGEN 62 mg/dL 7-21 (BEAKER) (test code = 354) CREATININE (BEAKER) (test 1.62 mg/dL 0.57-1.25 Specim en slightly code = 358) hemolyzed GLUCOSE RANDOM (BEAKER) 299 mg/dL 70-105 (test code = 652) CALCIUM (BEAKER) (test 9.7 mg/dL 8.4-10.2 code = 697) EGFR (BEAKER) (test code 41 mL/min/1.73 sq m EST IMATED GFR IS NOT = 1092) ACCURATE CREA TININE CLEARANCE IN PRE DICTING GLOMERULAR FILTR ATION RATE. ESTIMATED GFR IS NOT APPLICABLE F OR DIALYSIS PATIENT S. PROTHROMBIN [id number] 17:05:00 Test Item Value Reference Range Comments PROTIME (BEAKER) (test code = 759) 19.1 seconds 11.7-14.7 INR (BEAKER) (test code = 370) 1.6 <=5.9 RECOMMENDED COUMADIN/WARFARIN INR THERAPY RANGESSTANDARD DOSE: 2.0 - 3.0 Includes: PROPHYLAXIS forvenous thrombosis, systemic embolization; TREATMENT for venous thrombosis and/or pulmonary embolus.HIGH RISK: Target INR is 2.5-3.5 for patients with mechanical heart valves.CBC W/PLT COUNT & AUTO DIFFERENTIAL 2018-09-08 16:55:00 Test Item Value Reference Range Comments WHITE BLOOD CELL COUNT (BEAKER) (test code = 775) 3.1 K/ L 3.5-10.5 RED BLOOD CELL COUNT (BEAKER) (test code = 761) 3.31 M/ L 4.63-6.08 HEMOGLOBIN (BEAKER) (test code = 410) 9.7 GM/DL 13.7-17.5 HEMATOCRIT (BEAKER) (test code = 411) 32.0 % 40.1-51.0 MEAN CORPUSCULAR VOLUME (BEAKER) (test code = 96.7 fL 79 .0-92.2 753) MEAN CORPUSCULAR HEMOGLOBIN (BEAKER) (test code = 29.3 pg 25.7-32.2 751) MEAN CORPUSCULAR HEMOGLOBIN CONC (BEAKER) (test 30.3 GM/DL 32.3-36.5 code = 752) RED CELL DISTRIBUTION WIDTH (BEAKER) (test code = 14.8 % 11.6-14.4 412) PLATELET COUNT (BEAKER) (test code = 756) 97 K/CU MM 150-45 0 MEAN PLATELET VOLUME (BEAKER) (test code = 754) 12.7 fL 9.4-12.4 NUCLEATED RED BLOOD CELLS (BEAKER) (test code = 0 /100 WBC 0-0 413) NEUTROPHILS RELATIVE PERCENT (BEAKER) (test code 70 % = 429) LYMPHOCYTES RELATIVE PERCENT (BEAKER) (test code 17 % = 430) MONOCYTES RELATIVE PERCENT (BEAKER) (test code = 10 % 431) EOSINOPHILS RELATIVE PERCENT (BEAKER) (test code 1 % = 432) BASOPHILS RELATIVE PERCENT (BEAKER) (test code = 1 % 437) NEUTROPHILS ABSOLUTE COUNT (BEAKER) (test code = 2.17 K/ L 1.78-5.38 670) LYMPHOCYTES ABSOLUTE COUNT (BEAKER) (test code = 0.53 K/ L 1.32-3.57 414) MONOCYTES ABSOLUTE COUNT (BEAKER) (test code = 0.31 K/ L 0 .30-0.82 415) EOSINOPHILS ABSOLUTE COUNT (BEAKER) (test code = 0.04 K/ L 0.04-0.54 416) BASOPHILS ABSOLUTE COUNT (BEAKER) (test code = 0.03 K/ L 0 .01-0.08 417) IMMATURE GRANULOCYTES-RELATIVE PERCENT (BEAKER) 1 % 0-1 (test code = 2801) ALPHA FETOPROTEIN (AFP), TUMOR [id number] 15:35:00 Test Item Value Reference Range Comments ALPHA-FETOPROTEIN (BEAKER) (test code = 1094) < ng/mL <1 0.0 HEPATIC FUNCTION [id number] 15:26:00 Test Item Value Reference Range Comments TOTAL PROTEIN (BEAKER) (test code = 770) 7.8 gm/dL 6.0-8.3 ALBUMIN (BEAKER) (test code = 1145) 3.8 g/dL 3.5-5.0 BILIRUBIN TOTAL (BEAKER) (test code = 377) 0.5 mg/dL 0.2-1 .2 BILIRUBIN DIRECT (BEAKER) (test code = 706) 0.3 mg/dL 0.1- 0.5 ALKALINE PHOSPHATASE (BEAKER) (test code = 346) 92 U/L 40-150 AST (SGOT) (BEAKER) (test code = 353) 75 U/L 5-34 ALT (SGPT) (BEAKER) (test code = 347) 87 U/L 6-55 BASIC METABOLIC [id number] 15:26:00 Test Item Value Reference Range Comments SODIUM (BEAKER) (test 136 meq/L 136-145 code = 381) POTASSIUM (BEAKER) (test 5.2 meq/L 3.5-5.1 code = 379) CHLORIDE (BEAKER) (test 110 meq/L 98-107 code = 382) CO2 (BEAKER) (test code = 17 meq/L 22-29 355) BLOOD UREA NITROGEN 54 mg/dL 7-21 (BEAKER) (test code = 354) CREATININE (BEAKER) (test 1.81 mg/dL 0.57-1.25 code = 358) GLUCOSE RANDOM (BEAKER) 231 mg/dL 70-105 (test code = 652) CALCIUM (BEAKER) (test 9.4 mg/dL 8.4-10.2 code = 697) EGFR (BEAKER) (test code 36 mL/min/1.73 sq m EST IMATED GFR IS NOT = 1092) ACCURATE CREA TININE CLEARANCE IN PRE DICTING GLOMERULAR FILTR ATION RATE. ESTIMATED GFR IS NOT APPLICABLE F OR DIALYSIS PATIENT S. PROTHROMBIN [id number] 14:45:00 Test Item Value Reference Range Comments PROTIME (BEAKER) (test code = 759) 19.9 seconds 11.7-14.7 INR (BEAKER) (test code = 370) 1.7 <=5.9 RECOMMENDED COUMADIN/WARFARIN INR THERAPY RANGESSTANDARD DOSE: 2.0 - 3.0 Includes: PROPHYLAXIS forvenous thrombosis, systemic embolization; TREATMENT for venous thrombosis and/or pulmonary embolus.HIGH RISK: Target INR is 2.5-3.5 for patients with mechanical heart valves.CBC W/PLT COUNT & AUTO DIFFERENTIAL 2018-08-23 14:39:00 Test Item Value Reference Range Comments WHITE BLOOD CELL COUNT (BEAKER) (test code = 3.0 K/ L 3.5 -10.5 775) RED BLOOD CELL COUNT (BEAKER) (test code = 761) 3.36 M/ L 4.63-6.08 HEMOGLOBIN (BEAKER) (test code = 410) 10.0 GM/DL 13.7-17.5 HEMATOCRIT (BEAKER) (test code = 411) 32.7 % 40.1-51.0 MEAN CORPUSCULAR VOLUME (BEAKER) (test code = 97.3 fL 79 .0-92.2 753) MEAN CORPUSCULAR HEMOGLOBIN (BEAKER) (test code 29.8 pg 25.7-32.2 = 751) MEAN CORPUSCULAR HEMOGLOBIN CONC (BEAKER) (test 30.6 GM/DL 32.3-36.5 code = 752) RED CELL DISTRIBUTION WIDTH (BEAKER) (test code 15.0 % 11.6-14.4 = 412) PLATELET COUNT (BEAKER) (test code = 756) 101 K/CU MM 150-45 0 MEAN PLATELET VOLUME (BEAKER) (test code = 754) 12.0 fL 9.4-12.4 NUCLEATED RED BLOOD CELLS (BEAKER) (test code = 0 /100 WBC 0-0 413) NEUTROPHILS RELATIVE PERCENT (BEAKER) (test code 71 % = 429) LYMPHOCYTES RELATIVE PERCENT (BEAKER) (test code 15 % = 430) MONOCYTES RELATIVE PERCENT (BEAKER) (test code = 11 % 431) EOSINOPHILS RELATIVE PERCENT (BEAKER) (test code 1 % = 432) BASOPHILS RELATIVE PERCENT (BEAKER) (test code = 1 % 437) NEUTROPHILS ABSOLUTE COUNT (BEAKER) (test code = 2.15 K/ L 1.78-5.38 670) LYMPHOCYTES ABSOLUTE COUNT (BEAKER) (test code = 0.45 K/ L 1.32-3.57 414) MONOCYTES ABSOLUTE COUNT (BEAKER) (test code = 0.34 K/ L 0 .30-0.82 415) EOSINOPHILS ABSOLUTE COUNT (BEAKER) (test code = 0.04 K/ L 0.04-0.54 416) BASOPHILS ABSOLUTE COUNT (BEAKER) (test code = 0.02 K/ L 0 .01-0.08 417) IMMATURE GRANULOCYTES-RELATIVE PERCENT (BEAKER) 0 % 0-1 (test code = 2801) TISSUE [id number] 11:53:00Surgical Pathology Report Case: [id number] Authorizing Provider: Flora Weinberg MD Collected: 06/06/2018 1434 Ordering Location: [facility] Endoscopy Received: 06/06/2018 1605 Services Pathologist: Yuan Amezcua MD Specimens: A) - Stomach, Antrum, ANTRUM BX B) -Polyp, Gastric, GASTRIC FUNDUS POLYP - CBX C) - Polyp, Colon - Sigmoid, SIGMOID COLON POLYPS- COLD SNARE, CBX D) - Polyp, Colon - Cecum, CECUM POLYP - CBX PART A GASTRIC ANTRUM, BIOPSY:FOCALLY ACTIVE CHRONIC GASTRITIS.WARTHIN STARRY STAIN FOR HELICOBACTER IS NEGATIVE.PART B GASTRICBIOPSY FOR SUSPECTED POLYP:GASTRIC MUCOSA WITH MILD FOVEOLAR HYPERPLASIA.WARTHIN STARRY STAIN FOR HEL ICOBACTER IS NEGATIVE.PART C SIGMOID COLON POLYP, BIOPSY:HYPERPLASTIC POLYP, MULTIPLE.PART D CECAL POLYP, BIOPSY:MILDLY EDEMATOUS COLONIC MUCOSA WITHOUT SIGNIFICANT HISTOPATHOLOGIC ALTERATION. Signing Pathologist Direct Phone Line: [phone] signed by Yuan Amezcua MD on 06/07/2018 at 11:53 [id number], [id number] hepatitis C without hepatic coma. Portal hypertensionA. Stomach antrum biopsy; B. Gastric fundus polyp; C. Sigmoid colon polyp; D. Cecum colon polypThe specimen is received in four containers of formalin all labeled with the patient's information. SpecimenA labeled "stomach antrum biopsy" consists of two fragments of rivera tissue measuring 0.1 and 0.5 cm, submitted A1. Specimen B labeled "gastric fundus polyp" consists of three fragments of rivera tissue ranging from less than 0.1 to 0.2 cm, submitted B1. Specimen C labeled "sigmoid colon polyps" consists of multiple fragments of rivera tissue ranging from 0.1 to 0.8 cm, submitted C1. Specimen D labeled "sigmoid colon polyp" consists of two round fragments of rivera tissue measuring 0.1 and 0.2 cm, submitted D1. CG/pl PERFORMED.The following special studies were performed on this case and the interpretation isincorporated in the diagnostic report above:BLOCK A1- WARTHIN STARRYBLOCK B1- WARTHIN STARRYPOCT-GLUCOSE METER 2018-06-06 11:44:00 Test Item Value Reference Range Comments POC-GLUCOSE METER (BEAKER) 154 mg/dL 70-110 TESTE D AT [facility] [address], [place] (test code = 1538) [place] [address] HEPATIC FUNCTION [id number] 12:57:00 Test Item Value Reference Range Comments TOTAL PROTEIN (BEAKER) (test code = 770) 7.7 gm/dL 6.0-8.3 ALBUMIN (BEAKER) (test code = 1145) 3.5 g/dL 3.5-5.0 BILIRUBIN TOTAL (BEAKER) (test code = 377) 0.5 mg/dL 0.2-1 .2 BILIRUBIN DIRECT (BEAKER) (test code = 706) 0.2 mg/dL 0.1- 0.5 ALKALINE PHOSPHATASE (BEAKER) (test code = 346) 84 U/L 40-150 AST (SGOT) (BEAKER) (test code = 353) 46 U/L 5-34 ALT (SGPT) (BEAKER) (test code = 347) 61 U/L 6-55 Standing monthly X 3HEPATIC FUNCTION [id number] 11:35:00 Test Item Value Reference Range Comments TOTAL PROTEIN (BEAKER) (test code = 770) 7.8 gm/dL 6.0-8.3 ALBUMIN (BEAKER) (test code = 1145) 3.6 g/dL 3.5-5.0 BILIRUBIN TOTAL (BEAKER) (test code = 377) 0.7 mg/dL 0.2-1 .2 BILIRUBIN DIRECT (BEAKER) (test code = 706) 0.3 mg/dL 0.1- 0.5 ALKALINE PHOSPHATASE (BEAKER) (test code = 346) 107 U/L 40-150 AST (SGOT) (BEAKER) (test code = 353) 93 U/L 5-34 ALT (SGPT) (BEAKER) (test code = 347) 121 U/L 6-55 Standing monthly X 3LIVER FIBROSIS, FIBROTEST-ACTITEST [id number] 08:59:00 Test Item Value Reference Range Comments FIBROSIS SCORE (QUEST) (test code = 2764178) FIBROSIS STAGE (QUEST) (test code = 7642840) FIBROSIS INTERPRETATION (QUEST) (test code = 6633825) NECROINFLAMMAT ACTIVITY GRADE ([facility]) (test code = 8757876) NECROINFLAMMAT INTERP (QUEST) (test code = 4983679) BILIRUBIN, TOTAL (QUEST) (test code = 1410369) GGT (QUEST) (test code = 3757874) ALT (SGPT) (QUEST) (test code = 9998835) ALPHA 2 MACROGLOBULIN (QUEST) (test code = 5264087) HAPTOGLOBIN (QUEST) (test code = 3038702) APOLIPOPROTEIN A-1 (QUEST) (test code = 6002747) NECROINFLAMMAT ACTIVITY SCORE (test code = 7371527) HEPATITIS C PCR, [id number] 12:08:00 Test Item Value Reference Range Comments HCV NUMERIC RESULT (BEAKER) (test code = 2700) 5595520 IU/mL < 15 This test uses a Real-Time Polymerase Chain Reaction (RT-PCR) methodology and was performed using [employer] Ampliprep/[employer] TaqMan HCV test kit version 2.0 ([employer]).Reportable range for this assay is 15 - 100,000,000 IU per mL (1.18 - 8.00 Log IU/mL).HIV-1 ANTIGEN WITH HIV-1/2 [id number] 16:17:00 Test Item Value Reference Range Comments HIV-1 ANTIGEN WITH HIV 1\\T\\2 ANTIBODY (2) Nonreactive Nonrea ctive (BEAKER) (test code = 2586) HEPATIC FUNCTION [id number] 15:58:00 Test Item Value Reference Range Comments TOTAL PROTEIN (BEAKER) (test code = 770) 8.4 gm/dL 6.0-8.3 ALBUMIN (BEAKER) (test code = 1145) 3.9 g/dL 3.5-5.0 BILIRUBIN TOTAL (BEAKER) (test code = 377) 0.7 mg/dL 0.2-1 .2 BILIRUBIN DIRECT (BEAKER) (test code = 706) 0.3 mg/dL 0.1- 0.5 ALKALINE PHOSPHATASE (BEAKER) (test code = 346) 106 U/L 40-150 AST (SGOT) (BEAKER) (test code = 353) 81 U/L 5-34 ALT (SGPT) (BEAKER) (test code = 347) 80 U/L 6-55 BASIC METABOLIC [id number] 15:58:00 Test Item Value Reference Range Comments SODIUM (BEAKER) (test 136 meq/L 136-145 code = 381) POTASSIUM (BEAKER) (test 4.9 meq/L 3.5-5.1 code = 379) CHLORIDE (BEAKER) (test 106 meq/L 98-107 code = 382) CO2 (BEAKER) (test code = 23 meq/L 22-29 355) BLOOD UREA NITROGEN 42 mg/dL 7-21 (BEAKER) (test code = 354) CREATININE (BEAKER) (test 1.56 mg/dL 0.57-1.25 code = 358) GLUCOSE RANDOM (BEAKER) 163 mg/dL 70-105 (test code = 652) CALCIUM (BEAKER) (test 10.0 mg/dL 8.4-10.2 code = 697) EGFR (BEAKER) (test code 43 mL/min/1.73 sq m EST IMATED GFR IS NOT = 1092) ACCURATE CREA TININE CLEARANCE IN PRE DICTING GLOMERULAR FILTR ATION RATE. ESTIMATED GFR IS NOT APPLICABLE F OR DIALYSIS PATIENT S. PROTHROMBIN [id number] 15:46:00 Test Item Value Reference Range Comments PROTIME (BEAKER) (test code = 759) 18.3 seconds 11.7-14.7 INR (BEAKER) (test code = 370) 1.5 <=5.9 RECOMMENDED COUMADIN/WARFARIN INR THERAPY RANGESSTANDARD DOSE: 2.0 - 3.0 Includes: PROPHYLAXIS forvenous thrombosis, systemic embolization; TREATMENT for venous thrombosis and/or pulmonary embolus.HIGH RISK: Target INR is 2.5-3.5 for patients with mechanical heart valves.CBC W/PLT COUNT & AUTO DIFFERENTIAL 2018-03-17 15:36:00 Test Item Value Reference Range Comments WHITE BLOOD CELL COUNT (BEAKER) (test code = 3.5 K/ L 3.5 -10.5 775) RED BLOOD CELL COUNT (BEAKER) (test code = 761) 3.89 M/ L 4.63-6.08 HEMOGLOBIN (BEAKER) (test code = 410) 11.0 GM/DL 13.7-17.5 HEMATOCRIT (BEAKER) (test code = 411) 35.3 % 40.1-51.0 MEAN CORPUSCULAR VOLUME (BEAKER) (test code = 90.7 fL 79 .0-92.2 753) MEAN CORPUSCULAR HEMOGLOBIN (BEAKER) (test code 28.3 pg 25.7-32.2 = 751) MEAN CORPUSCULAR HEMOGLOBIN CONC (BEAKER) (test 31.2 GM/DL 32.3-36.5 code = 752) RED CELL DISTRIBUTION WIDTH (BEAKER) (test code 15.6 % 11.6-14.4 = 412) PLATELET COUNT (BEAKER) (test code = 756) 124 K/CU MM 150-45 0 MEAN PLATELET VOLUME (BEAKER) (test code = 754) 12.1 fL 9.4-12.4 NUCLEATED RED BLOOD CELLS (BEAKER) (test code = 0 /100 WBC 0-0 413) NEUTROPHILS RELATIVE PERCENT (BEAKER) (test code 63 % = 429) LYMPHOCYTES RELATIVE PERCENT (BEAKER) (test code 19 % = 430) MONOCYTES RELATIVE PERCENT (BEAKER) (test code = 14 % 431) EOSINOPHILS RELATIVE PERCENT (BEAKER) (test code 3 % = 432) BASOPHILS RELATIVE PERCENT (BEAKER) (test code = 1 % 437) NEUTROPHILS ABSOLUTE COUNT (BEAKER) (test code = 2.21 K/ L 1.78-5.38 670) LYMPHOCYTES ABSOLUTE COUNT (BEAKER) (test code = 0.65 K/ L 1.32-3.57 414) MONOCYTES ABSOLUTE COUNT (BEAKER) (test code = 0.47 K/ L 0 .30-0.82 415) EOSINOPHILS ABSOLUTE COUNT (BEAKER) (test code = 0.10 K/ L 0.04-0.54 416) BASOPHILS ABSOLUTE COUNT (BEAKER) (test code = 0.04 K/ L 0 .01-0.08 417) IMMATURE GRANULOCYTES-RELATIVE PERCENT (BEAKER) 1 % 0-1 (test code = 2801) ANTI-NUCLEAR ANTIBODY (NAKIA)2018-02-17 10:37:00 Test Item Value Reference Range Comments ANTI-NUCLEAR ANTIBODY (NAKIA) (BEAKER) (test code = Positive Negative 418) NAKIA TITER AND [id number] 10:37:00 Test Item Value Reference Range Comments NAKIA TITER (BEAKER) (test code = 1541) >=:2560 NAKIA PATTERN (BEAKER) (test code = 1781) Homogeneous MR, ABDOMEN, [id number] 17:42:00Referring: Dr. King Chapman REPORT TECHNIQUE: MRI of the abdomen WITHOUT and WITH intravenous contrast. INDICATION: 77-year-old man with abnormal CT scan. COMPARISON: Outside abdomen and pelvis CT 01/17/2018. FINDINGS: LOWER THORAX: Unremarkable. LIVER: Somewhat nodular contour of the liver, suggestive of cirrhosis. No focal hepatic lesions. BILIARY: Thickened gallbladder wall, nonspecific in the setting of cirrhosis. No biliary ductal dilatation or filling defect.SPLEEN: Enlarged, measuring 15.4 cm in the craniocaudal dimension. 2.1 cm T2 hyperintense lesion in the spleen with progressive centripetal enhancement, likely a benign lesion such as a hemangioma or hamartomaPANCREAS: No focal masses or ductal dilatation. ADRENALS: No adrenal nodules.KIDNEYS/URETERS: No hydronephrosis or solid mass lesions. Renal cysts measure 0.9 cm on the right and up to 1.4 cm on the left. PERITONEUM/RETROPERITONEUM: Trace ascites.LYMPH NODES: No lymphadenopathy.VESSELS: Portal system and hepatic veins are patent. Main portal vein measures 1.7 cm in diameter. GI TRACT: No distention or wall thickening. BONES ANDSOFT TISSUES: Degenerative changes of the visualized spine. Mild gynecomastia bilaterally. IMPRESSION:Suspected cirrhosis. No focal liver lesions. Evidence of portal hypertension. Trace ascites. Signed: Jayne Almonte MDReport Verified Date/Time: 02/14/2018 17:42:29 Reading Location: [address] Body Reading Room [id number] 14:32:00 Test Item Value Reference Range Comments FERRITIN (BEAKER) (test code = 361) 79 ng/mL 5-275 HEPATITIS C [id number] 14:06:00 Test Item Value Reference Range Comments HEPATITIS C ANTIBODY (BEAKER) (test code = 367) Reactive Nonreactive HEPATITIS B SURFACE [id number] 13:03:00 Test Item Value Reference Range Comments HEPATITIS B SURFACE ANTIGEN (2) (BEAKER) (test Nonreactive N onreactive code = 2585) HEPATITIS B SURFACE [id number] 13:00:00 Test Item Value Reference Range Comments HEPATITIS B SURFACE ANTIBODY (BEAKER) (test code = < mIU/mL <8.0 647) HEPATITIS A ANTIBODY, [id number] 13:00:00 Test Item Value Reference Range Comments HEPATITIS A IGG ANTIBODY (BEAKER) (test code = Reactive N onreactive 2797) ALPHA FETOPROTEIN (AFP), TUMOR [id number] 13:00:00 Test Item Value Reference Range Comments ALPHA-FETOPROTEIN (BEAKER) (test code = 1094) < ng/mL <1 0.0 HEPATITIS B CORE ANTIBODY, [id number] 12:59:00 Test Item Value Reference Range Comments HEPATITIS B CORE TOTAL ANTIBODY (BEAKER) (test Nonreactive N onreactive code = 497) B-TYPE NATRIURETIC FACTOR (BNP)2018-02-14 12:43:00 Test Item Value Reference Range Comments B-TYPE NATRIURETIC PEPTIDE (BEAKER) (test code = 1129 pg/mL 0-100 700) IRON, TIBC, % SAT. (WITHOUT FERRITIN)2018-02-14 12:38:00 Test Item Value Reference Range Comments IRON (BEAKER) (test code = 547) 40 ug/dL 40-160 TOTAL IRON BINDING CAPACITY (BEAKER) (test code = 405 ug/dL 250-450 769) IRON % SATURATION (2) (BEAKER) (test code = 2590) 10 % 20-55 COMPREHENSIVE METABOLIC [id number] 12:33:00 Test Item Value Reference Range Comments TOTAL PROTEIN (BEAKER) 7.8 gm/dL 6.0-8.3 (test code = 770) ALBUMIN (BEAKER) (test 3.8 g/dL 3.5-5.0 code = 1145) ALKALINE PHOSPHATASE 98 U/L 40-150 (BEAKER) (test code = 346) BILIRUBIN TOTAL (BEAKER) 0.5 mg/dL 0.2-1.2 (test code = 377) SODIUM (BEAKER) (test code 139 meq/L 136-145 = 381) POTASSIUM (BEAKER) (test 4.8 meq/L 3.5-5.1 code = 379) CHLORIDE (BEAKER) (test 108 meq/L 98-107 code = 382) CO2 (BEAKER) (test code = 22 meq/L 22-29 355) BLOOD UREA NITROGEN 40 mg/dL 7-21 (BEAKER) (test code = 354) CREATININE (BEAKER) (test 1.30 mg/dL 0.57-1.25 code = 358) GLUCOSE RANDOM (BEAKER) 170 mg/dL 70-105 (test code = 652) CALCIUM (BEAKER) (test 9.4 mg/dL 8.4-10.2 code = 697) AST (SGOT) (BEAKER) (test 54 U/L 5-34 code = 353) ALT (SGPT) (BEAKER) (test 52 U/L 6-55 code = 347) EGFR (BEAKER) (test code = 53 mL/min/1.73 sq m E STIMATED GFR IS NOT 1092) ACCURATE CREA TININE CLEARANCE IN PRE DICTING GLOMERULAR FILTR ATION RATE. ESTIMATED GFR IS NOT APPLICABLE F OR DIALYSIS PATIENT S. BILIRUBIN, [id number] 12:33:00 Test Item Value Reference Range Comments BILIRUBIN DIRECT (BEAKER) (test code = 706) 0.3 mg/dL 0.1- 0.5 [id number] 12:28:00 Test Item Value Reference Range Comments ALPHA-1 ANTITRYPSIN (BEAKER) (test code = 502) 175.00 mg/dL 9 0.00-200.00 PROTHROMBIN [id number] 12:17:00 Test Item Value Reference Range Comments PROTIME (BEAKER) (test code = 759) 19.0 seconds 11.7-14.7 INR (BEAKER) (test code = 370) 1.6 <=5.9 RECOMMENDED COUMADIN/WARFARIN INR THERAPY RANGESSTANDARD DOSE: 2.0 - 3.0 Includes: PROPHYLAXIS forvenous thrombosis, systemic embolization; TREATMENT for venous thrombosis and/or pulmonary embolus.HIGH RISK: Target INR is 2.5-3.5 for patients with mechanical heart valves.CBC W/PLT COUNT & AUTO DIFFERENTIAL 2018-02-14 12:14:00 Test Item Value Reference Range Comments WHITE BLOOD CELL COUNT (BEAKER) (test code = 3.3 K/ L 3.5 -10.5 775) RED BLOOD CELL COUNT (BEAKER) (test code = 761) 3.66 M/ L 4.63-6.08 HEMOGLOBIN (BEAKER) (test code = 410) 10.4 GM/DL 13.7-17.5 HEMATOCRIT (BEAKER) (test code = 411) 33.8 % 40.1-51.0 MEAN CORPUSCULAR VOLUME (BEAKER) (test code = 92.3 fL 79 .0-92.2 753) MEAN CORPUSCULAR HEMOGLOBIN (BEAKER) (test code 28.4 pg 25.7-32.2 = 751) MEAN CORPUSCULAR HEMOGLOBIN CONC (BEAKER) (test 30.8 GM/DL 32.3-36.5 code = 752) RED CELL DISTRIBUTION WIDTH (BEAKER) (test code 14.8 % 11.6-14.4 = 412) PLATELET COUNT (BEAKER) (test code = 756) 117 K/CU MM 150-45 0 MEAN PLATELET VOLUME (BEAKER) (test code = 754) 11.7 fL 9.4-12.4 NUCLEATED RED BLOOD CELLS (BEAKER) (test code = 0 /100 WBC 0-0 413) NEUTROPHILS RELATIVE PERCENT (BEAKER) (test code 74 % = 429) LYMPHOCYTES RELATIVE PERCENT (BEAKER) (test code 12 % = 430) MONOCYTES RELATIVE PERCENT (BEAKER) (test code = 11 % 431) EOSINOPHILS RELATIVE PERCENT (BEAKER) (test code 1 % = 432) BASOPHILS RELATIVE PERCENT (BEAKER) (test code = 1 % 437) NEUTROPHILS ABSOLUTE COUNT (BEAKER) (test code = 2.44 K/ L 1.78-5.38 670) LYMPHOCYTES ABSOLUTE COUNT (BEAKER) (test code = 0.40 K/ L 1.32-3.57 414) MONOCYTES ABSOLUTE COUNT (BEAKER) (test code = 0.37 K/ L 0 .30-0.82 415) EOSINOPHILS ABSOLUTE COUNT (BEAKER) (test code = 0.04 K/ L 0.04-0.54 416) BASOPHILS ABSOLUTE COUNT (BEAKER) (test code = 0.03 K/ L 0 .01-0.08 417) IMMATURE GRANULOCYTES-RELATIVE PERCENT (BEAKER) 0 % 0-1 (test code = 2801)
[2020-02-16] MEDS ORDERED: DIPHENHYDRAMINE 25 MG TAB/CAP PO PRN (17:49)
[2020-02-16] MEDS ORDERED: ACETAMINOPHEN 325 MG TABLET PO PRN (17:49)
[2020-02-16] MEDS ORDERED: ONDANSETRON 4 MG/2 ML VIAL IV PRN (17:50)
[2020-02-16] MEDS ORDERED: ONDANSETRON 4 MG (ODT) TAB PO PRN (17:50)
[2020-02-16] MEDS ORDERED: POLYETHYL GLY 3350 17 GM/DOSE PO PRN (17:50)
[2020-02-16] MEDS ORDERED: LOPERAMIDE HCL 2 MG CAPSULE PO PRN (17:50)
[2020-02-16 17:52] VITALS: BMI 21.2
[2020-02-16 17:53] LABS: Absolute Lymphocytes (CBC) 0.6 K/uL (0.7-4.9); Basophils % 0.5 % (0-1.3); Hematocrit 37.3 % (39.6-49.0); Lymphocytes % 15.5 % (15.3-44.8); MPV 9.5 fL (7.6-11.3); RBC Red Blood Cell Count 3.99 M/uL (4.33-5.43)
[2020-02-16 17:56] LABS: Protime INR 1.09
[2020-02-16] MEDS ORDERED: CA GLUCO IV ONE (18:00)
[2020-02-16] MEDS ORDERED: NA CHLORIDE 0.9% IV ONE (18:00)
[2020-02-16] MEDS ORDERED: INSULIN -REGULAR HUMAN 50 UNIT/0.5 ML ML IV ONE (18:00)
--- NOTE | 2020-02-16 18:27 | RAD REPORT ---
EXAM DESCRIPTION: Perla Cano (2 Views)02/16/2020 5:58 pm CLINICAL HISTORY: Shortness of breath COMPARISON: 2019 FINDINGS: Chronic elevation left hemidiaphragm The lungs appear clear of acute infiltrate. The heart is borderline enlarged IMPRESSION: No acute abnormalities displayed
[2020-02-16 18:42] LABS: Albumin 3.6 g/dL (3.4-5.0); Bilirubin Direct 0.2 mg/dL (0-0.2); Bilirubin Total 0.5 mg/dL (0.2-1.0); Magnesium 2.3 mg/dL (1.8-2.4); Phosphorus 4.4 mg/dL (2.5-4.9); Protein, Total 7.6 g/dL (6.4-8.2)
[2020-02-16 18:44] LABS: Potassium 5.7 mmol/L (3.5-5.1); Thyroid Stimulating Hormone 4.47 uIU/mL (0.360-3.740)
[2020-02-16] MEDS ORDERED: GLUCAGON 1 MG/VIAL IM PRN (19:00)
[2020-02-16] MEDS ORDERED: D50W 25 GM/50 ML SYRINGE/VIAL IV PRN (19:00)
--- NOTE | 2020-02-16 19:22 | P.HP ---
Certification for Inpatient Patient admitted to: Observation With expected LOS: <2 Midnights Practitioner: I am a practitioner with admitting privileges, knowledge of patient current condition, hospital course, and medical plan of care. Services: Services provided to patient in accordance with Admission requirements found in Title 42 Section 412.3 of the Code of Federal Regulations Patient History Date of Service: 02/16/20 Reason for admission: [facility] CALLED ME K IS 6.4 AND GLUCOSE MORE THAN 600 History of Present Illness: MR. SHIRLEY SAYS HE FEELS GOOD. I CALLED HIM TO GET ADMITTED K AND GLUCOSE WERE VERY HIGH ABOVE. MR. SHIRLEY HAS MANY MEDICAL ISSUES, DM, CKD-4, CIRRHOSIS, HISTORY OF HEP C, PULMONARY HTN. HE HAS NO NEW SYMPTOMS. 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 moist/pink, EOMI, Sclerae nonicteric Neck: Supple, 2+ carotid pulse no bruit, No LAD, Without JVD or thyroid abnormality Respiratory: Clear to auscultation bilaterally, Normal air movement Cardiovascular: Regular rate/rhythm, Normal S1 S2 Gastrointestinal: Normal bowel sounds, No tenderness Musculoskeletal: No tenderness Integumentary: No rashes Neurological: Normal gait, Normal speech, Normal strength at 5/5 x4 extr, Normal tone, Normal affect Lymphatics: No axilla or inguinal lymphadenopathy - Studies Laboratory Data (last 24 hrs) 02/16/20 17:37: PT 12.8 H, INR 1.09, APTT 33.2 02/16/20 17:37: Sodium 131 L, Potassium 5.7 H*, BUN 75 H, Creatinine 2.20 H, Glucose 640 H*, Phosphorus 4.4, Magnesium 2.3 D, Total Bilirubin 0.5, AST 19, ALT 23, Alkaline Phosphatase 167 H 02/16/20 17:37: WBC 4.1 L, Hgb 12.5 L, Hct 37.3 L, Plt Count 100 L 02/16/20 17:36: Glucose Cancelled Assessment and Plan - Problems (Diagnosis) (1) Uncontrolled diabetes mellitus Current Visit: Yes Status: Chronic Plan: WORSE LATELY HE HAS REFUSED INSULIN BEFORE BUT HE WILL TAKE NOW. STOP GLIMEPRIDE START LANTUS AND SLIDINGS SCALE HERE. DISCUSSED IN DETAIL. Qualifiers: Diabetes mellitus type: type 2 (2) A-fib Current Visit: No Status: Chronic (3) Cirrhosis of liver Current Visit: No Status: Chronic Plan: FROM HEP C Qualifiers: Hepatic cirrhosis type: unspecified hepatic cirrhosis (4) Hyperkalemia Current Visit: No Status: Acute Plan: RECURRENT K IS 5.7 ON REPEAT ANALYSIS. CANCEL YORDY GLUCONATE RESUME INSULIN IV. KAYXELATE AND IV FLUIDS. (5) Severe pulmonary arterial systolic hypertension Current Visit: No Status: Chronic - Advance Directives Does patient have a Living Will: No Does patient have a Durable POA for Healthcare: No
[2020-02-16] MEDS: NACHLORIDE 0.45% 1,000 ML IV SCH (19:53)
[2020-02-16] MEDS: SOD POLYSTYREN SUL 15 GM/60 ML UCUP PO SCH (19:53)
[2020-02-16] MEDS ORDERED: INSULIN -REGULAR HUMAN 50 UNIT/0.5 ML ML SQ SCH ×2 (21:00)
[2020-02-16] MEDS ORDERED: INSULIN GLARGINE 100 UNITS/ML SQ SCH (21:00)
[2020-02-16 22:58] LABS: Urine Appearance CLEAR; Urine Bilirubin NEGATIVE (NEG); Urine Blood NEGATIVE (NEG); Urine Color YELLOW; Urine Glucose 3+ (NEG); Urine Protein NEGATIVE (NEG); Urine Specific Gravity 1.025 (1.005-1.030); Urine Urobilinogen 0.2 mg/dL (0.2-1.0)
[2020-02-16 23:00] LABS: Urine Microscopic Reflex NO UMIC
[2020-02-16] MEDS: INSULIN -REGULAR HUMAN 50 UNIT/0.5 ML ML SQ SCH (23:07)
[2020-02-16 23:16] LABS: UR MICROALBUMIN 2.6 mg/dL (< 1.9)
[2020-02-17] MEDS: INSULIN -REGULAR HUMAN 50 UNIT/0.5 ML ML SQ SCH ×6 (01:10→13:00)
[2020-02-17] MEDS: SOD POLYSTYREN SUL 15 GM/60 ML UCUP PO SCH (01:11)
[2020-02-17 05:48] LABS: Absolute Lymphocytes (CBC) 1.8 K/uL (0.7-4.9); Basophils % 0.7 % (0-1.3); Hematocrit 39.1 % (39.6-49.0); Lymphocytes % 30.3 % (15.3-44.8); MPV 9.5 fL (7.6-11.3); RBC Red Blood Cell Count 4.31 M/uL (4.33-5.43)
[2020-02-17 05:49] LABS: Magnesium 2.3 mg/dL (1.8-2.4); Potassium 3.8 mmol/L (3.5-5.1)
[2020-02-17] MEDS: NACHLORIDE 0.45% 1,000 ML IV SCH (06:25)
[2020-02-17] MEDS ORDERED: HOME MED 1 EA UNK (Tadalafil [Cialis] 20 MG) PO SCH (09:00)
[2020-02-17] MEDS ORDERED: APIXABAN 2.5 MG TABLET PO SCH (09:00)
--- NOTE | 2020-02-17 11:54 | P.DS ---
Admission Date: 02/16/20 Discharge Date: 02/17/20 Disposition: ROUTINE DISCHARGE Discharge Condition: FAIR Reason for Admission: [facility] CALLED ME K IS 6.4 AND GLUCOSE MORE THAN 600 - Problems (1) Uncontrolled diabetes mellitus Current Visit: Yes Status: Chronic Qualifiers: Diabetes mellitus type: type 2 (2) A-fib Current Visit: No Status: Chronic (3) Cirrhosis of liver Current Visit: No Status: Chronic Qualifiers: Hepatic cirrhosis type: unspecified hepatic cirrhosis (4) Hyperkalemia Current Visit: No Status: Acute (5) Severe pulmonary arterial systolic hypertension Current Visit: No Status: Chronic Brief History of Present Illness: MR. LLANES SAYS HE FEELS GOOD. I CALLED HIM TO GET ADMITTED K AND GLUCOSE WERE VERY HIGH ABOVE. MR. LLANES HAS MANY MEDICAL ISSUES, DM, CKD-4, CIRRHOSIS, HISTORY OF HEP C, PULMONARY HTN. HE HAS NO NEW SYMPTOMS. Hospital Course: Mr. Llanes is doing great. His glucose came down to less than 100 from 600 with overnight efforts with insulin. He is reluctant about insulin but now he needs it. He thought he can't drive if on insulin. I reassured him. He will stop glimepride. Basaglar will be 15 units daily and will raise if need. He also had episode of bradycardia and so we reduced Coreg. His Hyperkalemia improved with IV insulin and Kayexlate. He also showed dehydration that happened mostly from hypeglycemia as glucose will act as diuretic if too high. He understood and will drink more water. He is not on any meds that cause hyperkalemia. Vital Signs/Physical Exam: Temp Pulse Resp BP Pulse Ox 97.3 F 48 L 18 143/65 H 99 02/17/20 08:00 02/17/20 08:00 02/17/20 08:00 02/17/20 08:00 02/17/20 08:00 Laboratory Data at Discharge: WBC 6.0 K/uL (4.3-10.9) D 02/17/20 05:15 Hgb 13.5 g/dL (13.6-17.9) L 02/17/20 05:15 Hct 39.1 % (39.6-49.0) L 02/17/20 05:15 Plt Count 104 K/uL (152-406) L 02/17/20 05:15 PT 12.8 SECONDS (9.5-12.5) H 02/16/20 17:37 INR 1.09 02/16/20 17:37 APTT 33.2 SECONDS (24.3-36.9) 02/16/20 17:37 Sodium 138 mmol/L (136-145) 02/17/20 05:15 Potassium 3.8 mmol/L (3.5-5.1) 02/17/20 05:15 BUN 65 mg/dL (7-18) H 02/17/20 05:15 Creatinine 1.83 mg/dL (0.55-1.3) H 02/17/20 05:15 Glucose 64 mg/dL (74-106) L 02/17/20 05:15 Phosphorus 4.4 mg/dL (2.5-4.9) 02/16/20 17:37 Magnesium 2.3 mg/dL (1.8-2.4) 02/17/20 05:15 Total Bilirubin 0.5 mg/dL (0.2-1.0) 02/16/20 17:37 AST 19 U/L (15-37) 02/16/20 17:37 ALT 23 U/L (12-78) 02/16/20 17:37 Alkaline Phosphatase 167 U/L (45-117) H 02/16/20 17:37 Home Medications: Levothyroxine [Synthroid*] 150 mcg PO [id number] 07/13/19 Apixaban [Eliquis *] 2.5 mg PO BID #180 tablet 07/19/19 Tadalafil [Cialis] 20 mg PO DAILY 02/16/20 Carvedilol [Coreg] 12.5 mg PO BID #180 tablet 02/17/20 Insulin Glargine,Hum.rec.anlog [Basaglar Kwikpen U-100] 15 unit SQ DAILY #5 insuln.pen 02/17/20 Pen Needle, Diabetic [Pen [place]] 1 each MC DAILY #100 dis.needle 02/17/20 New Medications: Insulin Glargine,Hum.rec.anlog [Basaglar Kwikpen U-100] 15 unit SQ DAILY #5 insuln.pen Carvedilol [Coreg] 12.5 mg PO BID #180 tablet Pen Needle, Diabetic [Pen [place]] 1 each MC DAILY #100 dis.needle Patient Discharge Instructions: MR. LLANES, I REDUCED YOUR CARVEDILOL AT NIGHT YOUR HEART RATE DROPPED LOW. WE WILL SEE IF YOU HAVE MORE SYMPTOMS ON FOLLOW UP. Followup: King Love MD [Primary Care Provider] - 1-2 Weeks (call to schedule a follow up appointment)
[2020-02-17 15:20] VITALS: BP 175/76; TEMP 98
[2020-02-18] MEDS ORDERED: LEVOTHYROXINE SOD 0.125 MG TAB PO SCH (06:00)
--- NOTE | 2020-02-20 16:14 | EKG ---
Test Date: 2020-02-17 Test Time: 00:18:28 Custom Shoe Designer And Maker: RT Thomas MEASUREMENT RESULTS: Intervals: Rate: 54 SD: QRSD: 92 QT: 416 QTc: 394 [place]: P: 268 SD: QRS: 18 T: 93 INTERPRETIVE STATEMENTS: Atrial flutter with variable AV block Abnormal QRS-T angle, consider primary T wave abnormality Abnormal ECG Compared to ECG 02/17/2020 00:13:40 T-wave abnormality now present Electronically Signed On 02-20-20 16:13:02 CDT by Gato Orr
--- NOTE | 2020-02-20 16:14 | EKG ---
Test Date: 2020-02-17 Test Time: 00:13:40 Neurosurgery Spine Physician: RT Thomas MEASUREMENT RESULTS: Intervals: Rate: 47 RI: QRSD: 90 QT: 398 QTc: 352 [place]: P: -89 RI: QRS: 7 T: 90 INTERPRETIVE STATEMENTS: Atrial flutter with variable AV block Abnormal ECG Compared to ECG 07/15/2019 13:59:22 Atrial fibrillation no longer present ST (T wave) deviation no longer present Possible ischemia no longer present Electronically Signed On 02-20-20 16:13:04 CDT by Gato Orr
== END 2020-02-17 13:15 | disposition home or self-care (01) ==
LOC: 2ND 17:07
PROVIDERS: ADMIT Internal Medicine; ATTEND Internal Medicine
DX: E11.65 Type 2 diabetes mellitus with hyperglycemia (principal); E87.5 Hyperkalemia; E11.22 Type 2 diabetes mellitus with diabetic chronic kidney disease; I48.20 Chronic atrial fibrillation, unspecified; B18.2 Chronic viral hepatitis C; N18.4 Chronic kidney disease, stage 4 (severe); K74.60 Unspecified cirrhosis of liver; I27.20 Pulmonary hypertension, unspecified; I12.9 Hypertensive chronic kidney disease with stage 1 through stage 4 chronic kidney disease, or unspecified chronic kidney disease
CPT/HCPCS: 93005 ×2; 87088; 85025 ×3; 87086; 80048 ×3; 36415 ×3; 83735 ×2; 82947 ×13; 84100 ×2; 85610; 80076; 84550; 85730; 84443 ×2; 87077; 87186; 81003 ×2; 83036; 82040; 82570 ×2; 84439 ×2; 82607; 82306; 84156; 82043 ×2; 71046; G0379; G0378 ×3; J0610; J1815

== ENCOUNTER 2022-05-08 08:20 | Day surgery (SDC) | payer OTHER ==
[2022-05-08 09:14] VITALS: BMI 24.3
--- NOTE | 2022-05-08 10:54 | RAD REPORT ---
EXAM DESCRIPTION: US - Paracentesis Proc Guidance - 05/08/2022 10:25 am CLINICAL HISTORY: ASCITES Ascites COMPARISON: Urinary Bladder dated 07/16/2021 FINDINGS: Informed consent was obtained and time-out was performed. Patient's abdomen was prepped and draped in the usual sterile fashion. 1% lidocaine was used for loca l anesthetic purposes. A small skin incision was made right lower quadrant. A paracentesis catheter was guided into the chandu katerina cavity under sonographic guidance. A small amount of fluid was sent for requested lab studies. 3.5 liters was then obtained. The patient tolerated the procedure well. Patient was administered IV albumin per protocol following the procedure. IMPRESSION: Successful ultrasound-guided paracentesis.
[2022-05-08] MEDS ORDERED: ALBUMIN HUMAN 25% 200 ML IV ONE (10:55)
[2022-05-08 12:29] VITALS: BP 156/72; TEMP 96.9; O2SAT 97
[2022-05-08 13:16] LABS: Body Fluid Source PERITONEAL
[2022-05-08 13:17] LABS: Appearance TURBID (CLEAR); Body Fluid WBC 215 /mm^3; Color of fluid Orange (COLORLESS)
== END 2022-05-08 11:47 | disposition home or self-care (01) ==
LOC: DS 08:20
PROVIDERS: ATTEND Registered Nurse
DX: R18.8 Other ascites (principal)
CPT/HCPCS: 87070; 36415; 88108; 89050; 84157; 88305; 82042; 96365; 49083; P9047

== ENCOUNTER 2022-06-01 07:23 | Day surgery (SDC) | payer OTHER ==
[2022-06-01 07:56] VITALS: BMI 24.3
[2022-06-01 08:02] LABS: MPV 7.7 fL (7.6-11.3)
[2022-06-01 08:08] LABS: Protime INR 1.17
--- NOTE | 2022-06-01 09:42 | RAD REPORT ---
EXAM DESCRIPTION: US - Paracentesis Proc Guidance - 06/01/2022 9:25 am CLINICAL HISTORY: Liver and renal disease with ascites FINDINGS: The risks, benefits and alternatives to the procedure were explained to the patient and in formed consent obtained. The skin and subcutaneous tissues were anesthetized with Lidocaine. Under sonographic guidance an 8 F rench catheter was placed into the right lower quadrant. 3.5 liters of yellow red fluid removed. Flui d sent to the lab. The patient experienced no immediate complication. IMPRESSION: Paracentesis
[2022-06-01] MEDS ORDERED: ALBUMIN HUMAN 25% 200 ML IV ONE (09:44)
[2022-06-01 10:22] VITALS: BP 179/88; TEMP 97.3; O2SAT 98
[2022-06-01 13:13] LABS: Appearance SLT. TURBID (CLEAR); Body Fluid Source PERITONEAL; Color of fluid Red (COLORLESS)
[2022-06-01 13:14] LABS: Body Fluid WBC 255 /mm^3
== END 2022-06-01 10:20 | disposition home or self-care (01) ==
LOC: DS 07:23
PROVIDERS: ATTEND Internal Medicine Hepatology
DX: R18.8 Other ascites (principal)
CPT/HCPCS: 87070; 36415; 88108; 89050; 85049; 85610; 82565; 82947; 88305; 85730; 96365; 49083; P9047

== ENCOUNTER 2022-06-16 08:31 | Day surgery (SDC) | payer OTHER ==
[2022-06-16 09:04] VITALS: BMI 24.3
[2022-06-16] MEDS ORDERED: ALBUMIN HUMAN 25% 200 ML IV ONE (11:38)
--- NOTE | 2022-06-16 12:31 | RAD REPORT ---
EXAM DESCRIPTION: US - Paracentesis Proc Guidance - 06/16/2022 10:42 am CLINICAL HISTORY: Ascites COMPARISON: Prior paracentesis procedures TECHNIQUE: The patient presents for ultrasound-guided paracentesis. The procedure, risks and altern atives were discussed with the patient in detail. Oral and written consent were obtained. Time out p rocedure was performed. The patient had no contraindicated allergy or medication history. PT, INR va lues within acceptable limits. Preliminary sonographic evaluation identified right lower quadrant access site. The skin and deeper tissues were anesthetized with 1 percent lidocaine. Under direct sonographic visualization, a 5 Fren ch catheter was advanced into the peritoneal cavity. Approximately 12 mL of ascites retained for requ ested laboratory studies. Large volume drainage was initiated. Approximately 3.5 liters of ascites re moved as requested. At the conclusion of the procedure, catheter was withdrawn and a bandage placed at the puncture site. Postprocedure care and precaution instructions were given to the patient. Patient was transferred b [facility] to the same day surgical area for albumin infusion utilizing referring physician protocol. IMPRESSION: Ultrasound-guided paracentesis as detailed.
[2022-06-16 12:39] VITALS: BP 112/52; TEMP 97.6; O2SAT 96
[2022-06-16 13:14] LABS: Appearance TURBID (CLEAR); Body Fluid Source PERITONEAL; Body Fluid WBC 224 /mm^3; Color of fluid Red (COLORLESS)
== END 2022-06-16 12:49 | disposition home or self-care (01) ==
LOC: DS 08:31
PROVIDERS: ATTEND Internal Medicine Hepatology
DX: R18.8 Other ascites (principal); K74.60 Unspecified cirrhosis of liver; Z86.19 Personal history of other infectious and parasitic diseases
CPT/HCPCS: 36415; 89050; 84157; 82042; 96365; 49083; P9047

== ENCOUNTER 2022-07-01 08:34 | Day surgery (SDC) | payer OTHER ==
[2022-07-01 09:00] VITALS: BMI 25.0
[2022-07-01] MEDS ORDERED: ALBUMIN HUMAN 25% 100 ML IV ONE ×2 (09:55→10:21)
--- NOTE | 2022-07-01 10:25 | RAD REPORT ---
EXAM DESCRIPTION: US - Paracentesis Proc Guidance - 07/01/2022 10:21 am CLINICAL HISTORY: ASCITES Ascites COMPARISON: Paracentesis Proc Guidance dated 06/16/2022 FINDINGS: Informed consent was obtained and time-out was performed. Patient's abdomen was prepped and draped in the usual sterile fashion. 1% lidocaine was used for loca l anesthetic purposes. A small skin incision was made. A paracentesis catheter was guided into the peroneal cavity under son ographic guidance. A small amount of fluid was sent for requested lab studies. A large volume paracentesis was performed . The patient tolerated the procedure well. Patient was administered IV albumin per protocol following the procedure. IMPRESSION: Successful ultrasound-guided paracentesis.
[2022-07-01 10:59] VITALS: TEMP 97.7
[2022-07-01 11:20] VITALS: BP 129/58; O2SAT 91
[2022-07-01 17:23] LABS: Body Fluid Source PERITONEAL
[2022-07-01 17:24] LABS: Appearance TURBID (CLEAR); Color of fluid Pink (COLORLESS)
[2022-07-01 17:25] LABS: Body Fluid WBC 75 /mm^3
[2022-07-05 19:46] LABS: TOTAL PROTEIN,PERITONEAL FLUID 3.7 g/dL
== END 2022-07-01 11:16 | disposition home or self-care (01) ==
LOC: DS 08:34
PROVIDERS: ATTEND Internal Medicine Hepatology
DX: R18.8 Other ascites (principal); K74.60 Unspecified cirrhosis of liver; Z86.19 Personal history of other infectious and parasitic diseases
CPT/HCPCS: 36415; 89050; 84157; 82042; 96365; 49083; P9047 ×2

== ENCOUNTER 2022-07-12 04:58 | Emergency (ER) | payer OTHER ==
--- OUTSIDE RECORDS SUMMARY | 2022-07-12 05:04 | XMS REPORT | Continuity of Care Document ---
:1940 Author Organization [facility] t Address [address] [place] [address] Care Team Providers Name Role Phone KING DAY Primary Care Physician Unavailtamiko Lea NP, Konstantin Cruz Attending Clinician YARON MIJARES Attending Clinician Unavailable Yaron Mijares MD Attending Clinician Lesly SEGURA, Lorena Quevedo Attending Clinician Unavailable Edda Galaviz CMA Attending Clinician Unavailable Cindy Moseley MA Attending Clinician Unavailable Alaina Chan Attending Clinician [phone] Kelsey Huynh RN Attending Clinician Unavailable Jeniffer Ordoñez NP Attending Clinician Michi Siddiqui Attending Clinician Unavailable MICHI SIDDIQUI Attending Clinician Unavailable JENIFFER ORDOÑEZ Attending Clinician Unavailable FLORA WEINBERG Attending Clinician Unavailable FLORA WEINBERG Admitting Clinician Unavailable Payers Payer Name Policy Type Policy Number Effective Date Expiration Date S brittney [employer] MEDICARE [id number] 2017 ADV 00:00:00 Problems Condition Condition Condition Status Onset Resolution Last Treating Co mments Source Name Details Category Date Date Treatment Clinician Date Pulmonary Pulmonary Disease Active [facility] hypert[facility] hypertensi 9-07 Narcisa kes on on 00:00: Medical 00 Center Other Other Disease Active [facility] 00 [place] Stage 4 Stage [address] [facility] chronic chronic 8 [facility] kidney kidney 00:00: Medical disease disease 00 Center Hepatitis Hepatitis Disease Active 2018-[address] [facility] [address] C virus C virus 0 [facility] infection infection 00:00: [facility] cured cured 00 Center after after antiviral antiviral drug drug therapy therapy Hypertensi Hypertensi Disease Active 2018-[address] [facility] 0 [facility] 00:[facility]: Medical 00 [place] Renal Renal Disease Active 2018-[address] insufficie insufficie 0- Narcisa kes ncy ncy 00:00: Medical 00 Center Screening Screening Disease Active 2018-[address] [facility] for for 0 [facility] malignant malignant 00:00: [facility] neoplasm neoplasm 00 Center Immunity Immunity Disease Active [facility] status status 11-24 [facility] testing testing 00:00: Medical 00 [place] Cirrhosis Cirrhosis Disease Active [facility] of liver of liver 04-26 [facility] with with 00:00: Medical ascites ascites 00 Center Portal Portal Disease Active [facility] hypertensi hypertensi 04-26 Narcisa kes on on 00:00: Medical 00 Center Allergies, Adverse Reactions, Alerts Allergy Allergy Status Severity Reaction(s) Onset Inactive Treating Comm ents Source Name Type Date Date Clinician NO KNOWN Allergy Active [facility] Family History Family Member Diagnosis Comments Start Date Stop Date Source Natural brother Heart disease [facility] Natural father Diabetes [facility] Natural mother No Known Problem [facility] Natural sister Kidney disease [facility] Social History Social Habit Start Date Stop Date Quantity Comments Source Alcohol intake 2022-07-08 2022-07-08 [facility] non-drinker of Medical Ce nter alcohol (finding) Tobacco use and 2018-02-14 2018-02-14 Never used [facility] exposure 00:00:00 00:00:00 Medical [place] Sex [birth year] [facility] 00:00:00 00:00:00 Medical Center Smoking Status Start Date Stop Date Source Tobacco smoking consumption unknown [facility] Never [facility] Medications Ordered Filled Start Stop Current Ordering Indication Dosage Frequency Signature Comments Components Source Medication Medication Date Date Medication? Clinician (SIG) Name Name carvediloL Yes 12.5mg Take 12.[address] (COREG) 9-07 mg by [facility] 12.5 MG 18:04: mouth 2 Medical tablet 33 (two) Center times daily with breakfast and dinner. furosemide Yes 80mg QD Take [address] (LASIX) 40 07-08 by mouth [facility] MG tablet 18:04: daily . Medic al 33 [place] glimepiride Yes 2mg Take [address] (AMARYL) 4 07 by mouth . Keagan es MG tablet 18:04: Medical 33 [place] apixaban Yes 2.5mg Q.5D Take 2.[address] (ELIQUIS) 9-07 mg by [facility] 2.5 mg Tab 18:04: mouth 2 Medi kodak tablet 33 (two) Center times daily. tadalafiL Yes 20mg Take [address] (CIALIS) 10 07-08 by mouth Luke s MG tablet 18:04: daily as Medi kodak 33 needed for Center Erectile Dysfunctio n. hydrALAZINE 2021- No 100mg Q.5D Take [address] (APRESOLINE 07-08 mg by [facility] ) 100 MG 18:04: 00:00 mouth 2 Medic al tablet 13 :00 (two) Center times daily. BISOPROLOL 2021- No 10mg Take [address] FUMARATE 07-08 by mouth. [facility] ORAL 18:03: 00:00 Medical 27 :00 [place] rivaroxaban 2021- No 10mg Take [address] (XARELTO) 07-08 by mouth [facility] 10 mg Tab 18:03: 00:00 daily with M edical tablet 27 :00 dinner. [place] montelukast Yes 10mg QD Take [address] (SINGULAIR) 07-02 by mouth Luke s 10 mg 00:00: daily. Medical tablet 00 Center levothyroxi Yes 200ug QD Take [address] ne 8-10 mcg by [facility] (SYNTHROID, 00:00: mouth Medic al LEVOTHROID) 00 daily. Center 200 MCG tablet BREO Yes USE [address] [facility] [address] ELLIPTA 4-10 PO DAILY [facility] 200-25 00:00: FOR COPD Medical mcg/dose 00 OR ASTHMA Center DsDv PREVENTION levothyroxi 2018-2021- No 200ug [address] [facility] St ne 11-07 [facility] (SYNTHROID, 00:00: 00:00 Medic al LEVOTHROID) 00 :00 [place] 112 MCG tablet Immunizations Ordered Immunization Filled Immunization Date Status Commen ts Source Name Name Hepatitis B 2018-11-[address] [facility]00 [facility] Hepatitis B 2018-05-[address] [facility] 00:00:00 [facility] Hepatitis B 2018-04-[address] [facility] 00:00:00 [facility] Vital Signs Vital Name Observation Time Observation Value Comments Source Systolic blood 2022-07-08 14:57:00 131 mm[Hg] [facility] Diastolic blood 2022-07-08 14:57:00 64 mm[Hg] [facility] Heart rate 2022-07-08 14:57:00 60 /min [facility] Body temperature 2022-07-08 14:57:00 36.44 Evette [facility] Body height 2022-07-08 14:57:00 193 cm [facility] Body weight 2022-07-08 14:57:00 96.616 kg [facility] BMI 2022-07-08 14:57:00 25.93 kg/m2 [facility] Oxygen saturation in 2022-07-08 14:57:00 96 /min [facility] Arterial blood by Medical Ce nter Pulse oximetry Body height 2021-12-15 15:43:00 193 cm [facility] Body weight 2021-12-15 15:43:00 83.915 kg [facility] BMI 2021-12-15 15:43:00 22.52 kg/m2 [facility] Procedures Procedure Date / Time Performing Clinician Source Performed COMPREHENSIVE METABOLIC 2022-07-08 15:49:[address] [facility] PANEL Center BASIC METABOLIC PANEL 2022-06-09 15:55:00 MaryanaYaron [facility] (7) Center HEPATIC FUNCTION PANEL 2022-06-09 15:55:[address] [facility] CBC W/PLT COUNT & AUTO 2022-06-09 15:55:00 MaryanaYaron I [facility] PROTHROMBIN TIME/INR 2022-06-09 15:55:00 MaryanaYaron [facility] ALPHA FETOPROTEIN (AFP), 2022-06-09 15:55:00 MaryanaYaron [facility] TUMOR MARKER Center HEPATITIS C PCR, 2022-06-09 15:55:00 MaryanaYaron [facility] LACTIC ACID, VENOUS 2022-06-09 15:55:00 MaryanaYaron [facility] CBC W/PLT COUNT & AUTO 2022-06-09 15:55:00 MaryanaYaron benites I [facility] POC CREATININE 2021-12-15 15:42:00 [facility] ESTIMATED GFR 2021-12-15 15:42:00 [facility] Plan of Care Planned Activity Planned Date Details Comments Source Future Scheduled 2022-07-05 COVID-19 VACCINE (#1) [facility] Test 06:17:18 [code = COVID-19 VACCINE (#1)] Future Scheduled 2022-07-05 SHINGLES VACCINES (1 Met [facility] Test 06:17:18 of 2) [code = SHINGLES VACCINES (1 of 2)] Future Scheduled 2022-07-05 65+ PNEUMOCOCCAL [facility] Test 06:17:18 VACCINE (1 - PCV) [code = 65+ PNEUMOCOCCAL VACCINE (1 - PCV)] Future Scheduled 2022-07-05 INFLUENZA VACCINE Method [facility] Test 06:17:18 [code = INFLUENZA VACCINE] Future Scheduled 2022-07-05 HEPATITIS B VACCINES Met [facility] Test 06:17:18 (1 of 3 - 3-dose series) [code = HEPATITIS B VACCINES (1 of 3 - 3-dose series)] Future Scheduled 2022-07-02 INFLUENZA VACCINE (#1) [facility] Test 00:00:00 [code = INFLUENZA Medical Ce nter VACCINE (#1)] Future Scheduled 2021-11-[address] [facility] Test 00:00:00 (12+) [code = Medical Center DEPRESSION SCREENING (12+)] Future Scheduled 2021-11-01 FALLS RISK SCREENING [facility] Test 00:00:00 [code = FALLS RISK Medical C enter SCREENING] Future Scheduled 2018-11-[address] [facility] Test 00:00:00 WELLNESS (YEAR 2 or Medical Center FIRST YEAR if no IPPE) [code = MEDICARE ANNUAL WELLNESS (YEAR 2 or FIRST YEAR if no IPPE)] Future Scheduled 2004 PNEUMOCOCCAL 65+ YRS [facility] Test 00:00:00 (1 - PCV) [code = Medical Ce nter PNEUMOCOCCAL 65+ YRS (1 - PCV)] Future Scheduled 1989 SHINGLES VACCINES ([address] [facility] Test 00:00:00 of 2) [code = SHINGLES Medic al Center VACCINES (1 of 2)] Future Scheduled 1958 DTAP/TDAP/TD VACCINES [facility] Test 00:00:00 (1 - Tdap) [code = Medical C enter DTAP/TDAP/TD VACCINES (1 - Tdap)] Future Scheduled 1941-05-24 COVID-19 VACCINE (#1) [facility] Test 00:00:00 [code = COVID-[address] VACCINE (#1)] Encounters Start End Encounter Admission Attending Care Care Encounter Source Date/Time Date/Time Type Type Clinicians Facility Department ID 2022-07-09 2022-07-09 Telephone Venu [facility] [id number] [facility] [address] [facility]00 00[facility]00 [facility] 2022-07-08 2022-07-08 Office Yaron Mijares [facility] [id number] 14:00:00 14:30:00 Visit Venu [facility] 2022-07-08 2022-07-08 Documentat Lesly [facility] [id number] 00:[facility]00 00:00:00 ion [facility] 2022-06-25 2022-06-25 Orders Guillaume [facility] [id number] 00:00:00 00:00:00 Only Edda Brasher [facility] 2022-06-24 2022-06-24 Abstract Lorelei [facility] [id number] 00:00:00 00:00:00 [facility] 2022-06-24 2022-06-24 Abstract Lorelei [facility] [id number] 00:00:00 00:00:00 [facility] 2022-06-23 2022-06-23 Abstract Lorelei [facility] [id number] 00:00:00 00:00:00 [facility] 2022-06-18 2022-06-18 Documentat Lesly [facility] [id number] 00:00:00 00:00:00 ion [facility] 2022-06-16 2022-06-16 Abstract Lorelei [facility] [id number] 00:00:00 00:00:00 [facility] 2022-06-11 2022-06-11 Carmen Grace [facility] [id number] 00:00[facility]00 00:00:00 [facility] 2022-06-09 2022-06-09 Office Maryana [facility] [id number] 14:30:00 15:00:00 Visit [facility] 2022-06-09 2022-06-09 Outpatient BROCK MIJARES [facility] [id number] SLE 00:00:00 00:00:00 RISE 2022-06-04 2022-06-04 Jerson Moseley [facility] [id number] 00:00:00 00:00:00 [facility] 2022-06-03 2022-06-03 Abstract Lorelei [facility] [id number] 00:00:00 00:00:00 [facility] 2022-06-01 2022-06-01 Abstract Lorelei [facility] [id number] 00:00:00 00:00:00 [facility] 2022-05-22 2022-05-22 Telephone Lelsy [facility] [id number] 00:00:00 00:00:00 [facility] 2022-05-22 2022-05-22 Telephone Venu [facility] [id number] 00:00[facility]00 00:00:00 [facility] 2022-05-19 2022-05-19 [id number] 00:00[facility]00 00:00:00 [facility] 2022-05-12 2022-05-12 Abstract Lorelei [facility] [id number] 00:00:00 00:00:00 [facility] 2022-05-06 2022-05-06 Telephone Lesly [facility] [id number] 00:00:00 00:00:00 [facility] 2022-05-06 2022-05-06 Telephone Lesly [facility] [id number] 00:00:00 00:00:00 [facility] 2022-05-01 2022-05-01 Telephone Nyla [facility] [id number] [facility] 2022-[facility]01 Telephone Lino [facility] [id number] 00:00:00 00:00:00 [facility] 2022-04-29 2022-04-29 Telephone Lino [facility] [id number] 00:00:00 00:00:00 [facility] 2022-04-27 2022-04-27 Orders Tiago, [facility] [id number] 00:00:00 00:00:[address] [facility] 2022-04-27 2022-04-27 Telephone Lesly [facility] [id number] 00:00:00 00:00:00 [facility] 2021-12-16 2021-12-16 Outpatient Aydeepa, [facility] [id number] [facility] 16:23:00 16:23:00 Divyang 22 [facility] 2021-12-15 2021-12-15 Outpatient ARTUR, [facility] [id number] [place] 00:00:00 00:00:00 DIVY[address] 2021-12-11 2021-12-11 Transcribe Artur, 1.2.840.1 [id number] Methodi 00:00:00 00:00:00 Orders Michi C [address] 3[facility]430.2.7 Hospit a .3.964415 l .8 2021-02-12 2021-02-12 Outpatient SLE SLE [id number] [facility] 00:00:00 00:00:00 2020-08-07 2020-08-07 Outpatient EL [facility] [id number] [facility] 00:00:00 00:00:00 2020-08-02 2020-08-02 Outpatient EL MARYANA, [facility] [id number] [facility] 00:00:00 00:00:00 RISE 2020-08-02 2020-08-02 Outpatient SLE SLE [id number] [facility] 00:00:00 00:00:00 2020-07-16 2020-07-16 Outpatient SLE SLE [id number] [facility] 00:00:00 00:00:00 [id number] 2020-07-16 2020-07-16 Outpatient EL [facility] [id number] [facility] 00:00:00 00:00:00 2020-07-09 2020-07-09 Outpatient [facility] [id number] SLE 00:00:00 00:00:00 [id number] 2020-01-02 2020-01-02 Outpatient [facility] [id number] [facility] 00:00:00 00:00:00 [id number] Results Test Description Test Time Test Comments Results Result Comments Source COMPREHENSIVE METABOLIC PANEL 2022-07-08 17:30:39 Test Item Value Reference Range Interpretation Comme nts TOTAL PROTEIN (BEAKER) 6.6 gm/dL 6.0-8.3 (test code = 770) ALBUMIN (BEAKER) (test 3.7 g/dL 3.5-5.0 code = 1145) ALKALINE PHOSPHATASE 87 U/L 40-150 (BEAKER) (test code = 346) BILIRUBIN TOTAL (BEAKER) 0.6 mg/dL 0.2-1.2 (test code = 377) SODIUM (BEAKER) (test 139 meq/L 136-145 code = 381) POTASSIUM (BEAKER) (test 3.9 meq/L 3.5-5.1 code = 379) CHLORIDE (BEAKER) (test 103 meq/L 98-107 code = 382) CO2 (BEAKER) (test code 25 meq/L 22-29 = 355) BLOOD UREA NITROGEN 123 mg/dL 7-21 H (BEAKER) (test code = 354) CREATININE (BEAKER) 3.79 mg/dL 0.57-1.25 H (test code = 358) GLUCOSE RANDOM (BEAKER) 197 mg/dL 70-105 H (test code = 652) CALCIUM (BEAKER) (test 8.5 mg/dL 8.4-10.2 code = 697) AST (SGOT) (BEAKER) 15 U/L 5-34 (test code = 353) ALT (SGPT) (BEAKER) 12 U/L 6-55 (test code = 347) EGFR (BEAKER) (test code 15 mL/min/1.73 sq Interpretation of eGFR values = 1092) m Stage Descripti on Result G1 Normal or high >=90 G2 Mildly decreased 60-89 G3a Mildly to moderately 45-5 9 G3b Moderately to severely 30- 44 G4 Severly decreased 15-29 G5 Kidney failure <15Repo rted eGFR is based on the CK D-EPI 2020 equation that d oes not use a race coefficien tEstimated GFR is not as accurate as Creatinine Clearance in pr edicting glomerular filt ration rate. Estimated GFR i s not applicable for dialysis arianna ling [employer] ID - ADMINHEPATITIS C PCR, [id number] 13:54:17 Test Item Value Reference Range Interpretation Comments HCV RESULT COMPONENT HCV RNA not detected HCV RNA not detected (BEAKER) (test code = 2699) This test uses a Real-Time Polymerase Chain Reaction (RT-PCR) methodology and was performed using [employer]CH[employer] Ampliprep/FRANCHESKA TaqMan HCV test kit version 2.0 ([employer]).Reportable range for this assay is 15 - 100,000,000 IU per mL (1.18 - 8.00 Log IU/mL).ALPHA FETOPROTEIN (AFP), TUMOR [id number] 17:37:05 Test Item Value Reference Range Interpretation Comments ALPHA-FETOPROTEIN (BEAKER) (test code < ng/mL <10.0 = 1094) [employer] ID - BSHEPATIC FUNCTION [id number] 16:44:20 Test Item Value Reference Range Interpretation Comments TOTAL PROTEIN (BEAKER) (test code = 6.7 gm/dL 6.0-8.3 770) ALBUMIN (BEAKER) (test code = 1145) 3.7 g/dL 3.5-5.0 BILIRUBIN TOTAL (BEAKER) (test code 0.6 mg/dL 0.2-1.2 = 377) BILIRUBIN DIRECT (BEAKER) (test 0.3 mg/dL 0.1-0.5 code = 706) ALKALINE PHOSPHATASE (BEAKER) (test 81 U/L 40-150 code = 346) AST (SGOT) (BEAKER) (test code = 21 U/L 5-34 353) ALT (SGPT) (BEAKER) (test code = 15 U/L 6-55 347) [employer] ID - BSBASIC METABOLIC [id number] 16:44:15 Test Item Value Reference Range Interpretation Comments SODIUM (BEAKER) 138 meq/L 136-145 (test code = 381) POTASSIUM 4.9 meq/L 3.5-5.1 (BEAKER) (test code = 379) CHLORIDE (BEAKER) 106 meq/L 98-107 (test code = 382) CO2 (BEAKER) 26 meq/L 22-29 (test code = 355) BLOOD UREA 68 mg/dL 7-21 H NITROGEN (BEAKER) (test code = 354) CREATININE 2.14 mg/dL 0.57-1.25 H (BEAKER) (test code = 358) GLUCOSE RANDOM 206 mg/dL 70-105 H (BEAKER) (test code = 652) CALCIUM (BEAKER) 8.7 mg/dL 8.4-10.2 (test code = 697) EGFR (BEAKER) 31 Interpretatio n of eGFR (test code = mL/min/1.73 values Stage De scription 1092) sq m Result G1 Julieta l or high >=90 G2 Mildly decreased 60-89 G3a Mildl y to moderately 45-5 9 G3b Moderately to s everely 30-44 G4 Severl y decreased 15-29 G5 Kidney failure <15Reported eGF R is based on the CKD-EPI 2020 equation that d oes not use a race coefficientEsti mated GFR is not as accur ate as Creatinine Reanna nicole in predicting glom erular filtration rate . Estimated GFR is not appl icable for dialysis patien ts [employer] ID - BSLACTIC ACID, [id number] 16:40:34 Test Item Value Reference Range Interpretation Comments LACTATE BLOOD VENOUS (2) (BEAKER) 0.57 mmol/L 0.50-2.20 (test code = 2872) [employer] ID - BSPROTHROMBIN [id number] 16:29:11 Test Item Value Reference Range Interpretation Comments PROTIME (BEAKER) 17.0 seconds 11.9-14.2 H (test code = 759) INR (BEAKER) (test 1.47 See_Comment [Automat ed message] code = 370) The system [employer] generated this result transmitted ref erence range: <=5.90. The reference range was not used to int erpret this result as normal/abnormal . RECOMMENDED COUMADIN/WARFARIN INR THERAPY RANGESSTANDARD DOSE: 2.0 - 3.0 Includes: PROPHYLAXIS for venous thrombosis, systemic embolization; TREATMENT for venous thrombosis and/or pulmonary embolus.HIGH RISK: Target INR is 2.5-3.5 for patients with mechanical heart valves.CBC W/PLT COUNT & AUTO [id number] 16:20:31 Test Item Value Reference Range Interpretation Comments WHITE BLOOD CELL COUNT (BEAKER) 4.0 K/ L 3.5-10.5 (test code = 775) RED BLOOD CELL COUNT (BEAKER) 3.65 M/ L 4.63-6.08 L (test code = 761) HEMOGLOBIN (BEAKER) (test code = 11.3 GM/DL 13.7-17.5 L 410) HEMATOCRIT (BEAKER) (test code = 36.7 % 40.1-51.0 L 411) MEAN CORPUSCULAR VOLUME (BEAKER) 100.5 fL 79.0-92.2 H (test code = 753) MEAN CORPUSCULAR HEMOGLOBIN 31.0 pg 25.7-32.2 (BEAKER) (test code = 751) MEAN CORPUSCULAR HEMOGLOBIN CONC 30.8 GM/DL 32.3-36.5 L (BEAKER) (test code = 752) RED CELL DISTRIBUTION WIDTH 14.5 % 11.6-14.4 H (BEAKER) (test code = 412) PLATELET COUNT (BEAKER) (test 102 K/CU MM 150-450 L code = 756) MEAN PLATELET VOLUME (BEAKER) 10.6 fL 9.4-12.4 (test code = 754) NUCLEATED RED BLOOD CELLS 0 /100 WBC 0-0 (BEAKER) (test code = 413) NEUTROPHILS RELATIVE PERCENT 70 % (BEAKER) (test code = 429) LYMPHOCYTES RELATIVE PERCENT 18 % (BEAKER) (test code = 430) MONOCYTES RELATIVE PERCENT 9 % (BEAKER) (test code = 431) EOSINOPHILS RELATIVE PERCENT 2 % (BEAKER) (test code = 432) BASOPHILS RELATIVE PERCENT 1 % (BEAKER) (test code = 437) NEUTROPHILS ABSOLUTE COUNT 2.77 K/ L 1.78-5.38 (BEAKER) (test code = 670) LYMPHOCYTES ABSOLUTE COUNT 0.70 K/ L 1.32-3.57 L (BEAKER) (test code = 414) MONOCYTES ABSOLUTE COUNT (BEAKER) 0.34 K/ L 0.30-0.82 (test code = 415) EOSINOPHILS ABSOLUTE COUNT 0.07 K/ L 0.04-0.54 (BEAKER) (test code = 416) BASOPHILS ABSOLUTE COUNT (BEAKER) 0.04 K/ L 0.01-0.08 (test code = 417) IMMATURE GRANULOCYTES-RELATIVE 1 % 0-1 PERCENT (BEAKER) (test code = 2801) ALPHA FETOPROTEIN (AFP), TUMOR [id number] 11:01:00 Test Item Value Reference Range Interpretation Comments ALPHA-FETOPROTEIN (BEAKER) (test code < ng/mL <10.0 = 1094) [employer] ID - ILDEFONSO FU/S, ABDOMINAL, [id number] 11:00:00Referring: Dr. King Zaman for Exam:->cirrhosis, screen for liver cancerFINAL REPORT TECHNIQUE: Grayscale ultrasound of the abdomen. INDICATION: 79-year-old man with cirrhosis. COMPARISON: Abdomen ultrasound 12/14/2019. FINDINGS: MIDLINE VASCULATURE: Visualized inferior vena cava is patent. Main portal vein is patent and prominent, measuring 1.4 cm. Maximum visualized aortic diameter is 2.6 cm. LIVER: Liver is normal in size with coarsened echotextureand mild nodular contour, consistent with cirrhosis. No focal lesion. BILIARY:Gallbladder: Questionable small amount of sludge and/or stones in the gallbladder. No gallbladder wall thickening, pericholecystic fluid, or distention. Reported negative sonographic Andrade sign.Common bile duct measures 0.4cm, within normal limits. No intrahepatic biliary ductal dilatation. PANCREAS: Visualized portions of the pancreas are unremarkable. SPLEEN: Spleen is prominent and measures 16.2 cm. PERITONEUM: No free fluid. KIDNEYS: Both kidneys are normal in size. No hydronephrosis. No sonographically evident mass. Left renal cysts measure 1.8 x 1.6 x 2.1 cm and 0.9 x 0.9 x 0.8 cm. IMPRESSION:Cirrhosis with evidence of portal hypertension. No focal liver lesion. Questionable gallbladder sludge and/or cholelithiasis. Signed: Jayne Genao [facility] Verified Date/Time: 08/02/2020 11:00:12 HEPATIC FUNCTION PANEL 2020-08-02 10:44:00 Test Item Value Reference Range Interpretation Comments TOTAL PROTEIN (BEAKER) (test code = 7.5 gm/dL 6.0-8.3 770) ALBUMIN (BEAKER) (test code = 1145) 4.2 g/dL 3.5-5.0 BILIRUBIN TOTAL (BEAKER) (test code 0.7 mg/dL 0.2-1.2 = 377) BILIRUBIN DIRECT (BEAKER) (test 0.4 mg/dL 0.1-0.5 code = 706) ALKALINE PHOSPHATASE (BEAKER) (test 84 U/L 40-150 code = 346) AST (SGOT) (BEAKER) (test code = 29 U/L 5-34 353) ALT (SGPT) (BEAKER) (test code = 20 U/L 6-55 347) [employer] ID Keith FREGOSO FBASIC METABOLIC [id number] 10:44:00 Test Item Value Reference Range Interpretation Comments SODIUM (BEAKER) 141 meq/L 136-145 (test code = 381) POTASSIUM (BEAKER) 4.4 meq/L 3.5-5.1 (test code = 379) CHLORIDE (BEAKER) 107 meq/L 98-107 (test code = 382) CO2 (BEAKER) (test 26 meq/L 22-29 code = 355) BLOOD UREA NITROGEN 44 mg/dL 7-21 H (BEAKER) (test code = 354) CREATININE (BEAKER) 1.52 mg/dL 0.57-1.25 H (test code = 358) GLUCOSE RANDOM 108 mg/dL 70-105 H (BEAKER) (test code = 652) CALCIUM (BEAKER) 9.3 mg/dL 8.4-10.2 (test code = 697) EGFR (BEAKER) (test 44 mL/min/1.73 ESTIMA ARASH GFR IS code = 1092) sq m NOT ACCURATE CREATININE CLEARANCE IN PREDICTING GLOMERULAR FILTRATION RATE . ESTIMATED GFR I S NOT APPLICABLE FOR DIALYSIS PATIEN TS. [employer] ID Keith FREGOSO FPROTHROMBIN TIME/[id number] 10:33:00 Test Item Value Reference Range Interpretation Comments PROTIME (BEAKER) (test code = 14.8 seconds 11.9-14.2 H 759) INR (BEAKER) (test code = 370) 1.19 <=5.90 Effective 03/29/2019: PT Reference Range ChangeNew: 11.9-14.2 Previous: 11.7- 14.7RECOMMENDED COUMADIN/WARFARIN INR THERAPY RANGESSTANDARD DOSE: 2.0-3.0 Includes: PROPHYLAXIS for venous thrombosis, systemic embolization; TREATMENT for venous thrombosis and/or pulmonary embolus.HIGH RISK: Target INR is 2.5-3.5 for patients wiht mechanical heart valves.CBC W/PLT COUNT & AUTO [id number] 10:29:00 Test Item Value Reference Range Interpretation Comments WHITE BLOOD CELL COUNT (BEAKER) 4.1 K/ L 3.5-10.5 (test code = 775) RED BLOOD CELL COUNT (BEAKER) 4.21 M/ L 4.63-6.08 L (test code = 761) HEMOGLOBIN (BEAKER) (test code = 13.2 GM/DL 13.7-17.5 L 410) HEMATOCRIT (BEAKER) (test code = 41.1 % 40.1-51.0 411) MEAN CORPUSCULAR VOLUME (BEAKER) 97.6 fL 79.0-92.2 H (test code = 753) MEAN CORPUSCULAR HEMOGLOBIN 31.4 pg 25.7-32.2 (BEAKER) (test code = 751) MEAN CORPUSCULAR HEMOGLOBIN CONC 32.1 GM/DL 32.3-36.5 L (BEAKER) (test code = 752) RED CELL DISTRIBUTION WIDTH 13.8 % 11.6-14.4 (BEAKER) (test code = 412) PLATELET COUNT (BEAKER) (test code 94 K/CU MM 150-450 L = 756) MEAN PLATELET VOLUME (BEAKER) 12.0 fL 9.4-12.4 (test code = 754) NUCLEATED RED BLOOD CELLS (BEAKER) 0 /100 WBC 0-0 (test code = 413) NEUTROPHILS RELATIVE PERCENT 76 % (BEAKER) (test code = 429) LYMPHOCYTES RELATIVE PERCENT 13 % (BEAKER) (test code = 430) MONOCYTES RELATIVE PERCENT 8 % (BEAKER) (test code = 431) EOSINOPHILS RELATIVE PERCENT 1 % (BEAKER) (test code = 432) BASOPHILS RELATIVE PERCENT 1 % (BEAKER) (test code = 437) NEUTROPHILS ABSOLUTE COUNT 3.07 K/ L 1.78-5.38 (BEAKER) (test code = 670) LYMPHOCYTES ABSOLUTE COUNT 0.54 K/ L 1.32-3.57 L (BEAKER) (test code = 414) MONOCYTES ABSOLUTE COUNT (BEAKER) 0.31 K/ L 0.30-0.82 (test code = 415) EOSINOPHILS ABSOLUTE COUNT 0.05 K/ L 0.04-0.54 (BEAKER) (test code = 416) BASOPHILS ABSOLUTE COUNT (BEAKER) 0.05 K/ L 0.01-0.08 (test code = 417) IMMATURE GRANULOCYTES-RELATIVE 1 % 0-1 PERCENT (BEAKER) (test code = 2801) U/S, ABDOMINAL, [id number] 12:13:00Referring: Dr. King Zaman for Exam:->cirrhosis, HCV, abnormal liver imaging, screen for liver cancerFINAL REPORT TECHNIQUE: Grayscale ultrasound of the abdomen. INDICATION: cirrhosis, HCV, abnormal liver imaging, screen for liver cancer. COMPARISON: Ultrasound from 05/24/2019. FINDINGS: MIDLINE VASCULATURE: The visualized inferior vena cava is unremarkable. The maximum visualizedaortic diameter is 2.6 cm. LIVER: Coarsened hepatic echotexture. Mildly nodular liver contour. No focal lesions. The main portal vein is patent and measures 1.4 cm in diameter. BILIARY:Gallbladder: No gallbladder distention. The gallbladder wall is mildly thickened, likely due to the adjacent liver disease. There is likely sludge and/or nodular lung stones layering in the gallbladder. Negative sonogra phic Andrade sign.Common bile duct measures 0.4 cm, [...] signs for acute cholecystitis. Signed: Charbel Perez [facility] Verified Date/Time: 12/14/2019 12:13:08 Reading Location: [address] Radiology Reading Room ALPHA FETOPROTEIN (AFP), TUMOR [id number] 11:21:00 Test Item Value Reference Range Interpretation Comments ALPHA-FETOPROTEIN (BEAKER) (test code < ng/mL <10.0 = 1094) [employer] ID - [place] MHEPATIC FUNCTION [id number] 10:34:00 Test Item Value Reference Range Interpretation Comments TOTAL PROTEIN (BEAKER) (test code = 7.2 gm/dL 6.0-8.3 770) ALBUMIN (BEAKER) (test code = 1145) 4.0 g/dL 3.5-5.0 BILIRUBIN TOTAL (BEAKER) (test code 0.8 mg/dL 0.2-1.2 = 377) BILIRUBIN DIRECT (BEAKER) (test 0.4 mg/dL 0.1-0.5 code = 706) ALKALINE PHOSPHATASE (BEAKER) (test 81 U/L 40-150 code = 346) AST (SGOT) (BEAKER) (test code = 16 U/L 5-34 353) ALT (SGPT) (BEAKER) (test code = 10 U/L 6-55 347) [employer] ID - LABASIC METABOLIC [id number] 10:34:00 Test Item Value Reference Range Interpretation Comments SODIUM (BEAKER) 138 meq/L 136-145 (test code = 381) POTASSIUM (BEAKER) 5.3 meq/L 3.5-5.1 H (test code = 379) CHLORIDE (BEAKER) 108 meq/L 98-107 H (test code = 382) CO2 (BEAKER) (test 24 meq/L 22-29 code = 355) BLOOD UREA NITROGEN 47 mg/dL 7-21 H (BEAKER) (test code = 354) CREATININE (BEAKER) 1.74 mg/dL 0.57-1.25 H (test code = 358) GLUCOSE RANDOM 254 mg/dL 70-105 H (BEAKER) (test code = 652) CALCIUM (BEAKER) 9.3 mg/dL 8.4-10.2 (test code = 697) EGFR (BEAKER) (test 38 mL/min/1.73 ESTIMA ARASH GFR IS code = 1092) sq m NOT ACCURATE CREATININE CLEARANCE IN PREDICTING GLOMERULAR FILTRATION RATE . ESTIMATED GFR I S NOT APPLICABLE FOR DIALYSIS PATIEN TS. [employer] Dipper ID - LAPROTHROMBIN [id number] 10:05:00 Test Item Value Reference Range Interpretation Comments PROTIME (BEAKER) (test code = 17.3 seconds 11.9-14.2 H 759) INR (BEAKER) (test code = 370) 1.5 <=5.9 Effective 03/29/2019: PT Reference Range ChangeNew: 11.9-14.2 Previous: 11.7- 14.7RECOMMENDED COUMADIN/WARFARIN INR THERAPY RANGESSTANDARD DOSE: 2.0-3.0 Includes: PROPHYLAXIS for venous thrombosis, systemic embolization; TREATMENT for venous thrombosis and/or pulmonary embolus.HIGH RISK: Target INR is 2.5-3.5 for patients wiht mechanical heart valves.CBC W/PLT COUNT & AUTO [id number] 09:54:00 Test Item Value Reference Range Interpretation Comments WHITE BLOOD CELL COUNT (BEAKER) 3.9 K/ L 3.5-10.5 (test code = 775) RED BLOOD CELL COUNT (BEAKER) 3.86 M/ L 4.63-6.08 L (test code = 761) HEMOGLOBIN (BEAKER) (test code = 11.8 GM/DL 13.7-17.5 L 410) HEMATOCRIT (BEAKER) (test code = 36.8 % 40.1-51.0 L 411) MEAN CORPUSCULAR VOLUME (BEAKER) 95.3 fL 79.0-92.2 H (test code = 753) MEAN CORPUSCULAR HEMOGLOBIN 30.6 pg 25.7-32.2 (BEAKER) (test code = 751) MEAN CORPUSCULAR HEMOGLOBIN CONC 32.1 GM/DL 32.3-36.5 L (BEAKER) (test code = 752) RED CELL DISTRIBUTION WIDTH 14.7 % 11.6-14.4 H (BEAKER) (test code = 412) PLATELET COUNT (BEAKER) (test code 88 K/CU MM 150-450 L = 756) MEAN PLATELET VOLUME (BEAKER) 10.4 fL 9.4-12.4 (test code = 754) NUCLEATED RED BLOOD CELLS (BEAKER) 0 /100 WBC 0-0 (test code = 413) NEUTROPHILS RELATIVE PERCENT 71 % (BEAKER) (test code = 429) LYMPHOCYTES RELATIVE PERCENT 15 % (BEAKER) (test code = 430) MONOCYTES RELATIVE PERCENT 10 % (BEAKER) (test code = 431) EOSINOPHILS RELATIVE PERCENT 2 % (BEAKER) (test code = 432) BASOPHILS RELATIVE PERCENT 1 % (BEAKER) (test code = 437) NEUTROPHILS ABSOLUTE COUNT 2.76 K/ L 1.78-5.38 (BEAKER) (test code = 670) LYMPHOCYTES ABSOLUTE COUNT 0.59 K/ L 1.32-3.57 L (BEAKER) (test code = 414) MONOCYTES ABSOLUTE COUNT (BEAKER) 0.39 K/ L 0.30-0.82 (test code = 415) EOSINOPHILS ABSOLUTE COUNT 0.09 K/ L 0.04-0.54 (BEAKER) (test code = 416) BASOPHILS ABSOLUTE COUNT (BEAKER) 0.03 K/ L 0.01-0.08 (test code = 417) IMMATURE GRANULOCYTES-RELATIVE 1 % 0-1 PERCENT (BEAKER) (test code = 2801) U/S, ABDOMINAL, [id number] 16:36:00Referring: Dr. King Zaman for Exam:->cirrhosis screen [...] is likely due to volume overload. LIVER: Coarsenedhepatic echotexture with a nodular liver contour. No focal lesions. The main portal vein measures 1.3 cm. BILIARY:Gallbladder: Several stones layering the gallbladder. And addition, there are areas of ringdown artifact in the gallbladder. No gallbladder wall thickening, pericholecystic fluid, or distention. Negative sonographic Andrade sign.Common bile duct measures 0.3 cm, within normal limits. No intrahepatic biliary ductal dilatation. PANCREAS: Incompletely visualized due to overlying bowel gas. The partially visualized pancreatic neck and body are normal. SPLEEN: The spleen is enlarged at 16 cm.PERITONEUM: Trace perihepatic ascites. KIDNEYS: Normal in size bilaterally. No hydronephrosis. No sonographically evident solid mass lesion. A left lower pole anechoic renal lesion measures 2.2 x 1.6 x1.2 cm and has posterior acoustic enhancement, most consistent with a simple renal cyst. An additional, smaller anechoic left lower pole renal lesion measures 0.7 x 0.7 x 0.6 cm and is consistent with a simple renal cyst. IMPRESSION: 1.No focal hepatic lesion. 2.Cirrhosis with sequelae of portal hypertension including small volume perihepatic ascites and splenomegaly. 3.Reversal of flow in the hepatic veins is likely due to volume overload. 4.Cholelithiasis without acute cholecystitis. In addition, there is also likely cholesterolosis in the gallbladder. Signed: Charbel Perez [facility] Verified Date/Time: 05/24/2019 16:36:26 Reading Location: [address] Radiology Reading Room HEPATITIS C PCR, QUANTITATIVE 2019-05-04 08:28:00 Test Item Value Reference Range Interpretation Comments HCV RESULT COMPONENT HCV RNA not detected HCV RNA not detected (BEAKER) (test code = 2699) This test uses a Real-Time Polymerase Chain Reaction (RT-PCR) methodology and was performed using [employer] Ampliprep/FRANCH[employer]KA TaqMan HCV test kit version 2.0 ([employer]).Reportable range for this assay is 15 - 100,000,000 IU per mL (1.18 - 8.00 Log IU/mL).ALPHA FETOPROTEIN (AFP), TUMOR [id number] 13:19:00 Test Item Value Reference Range Interpretation Comments ALPHA-FETOPROTEIN (BEAKER) (test code < ng/mL <10.0 = 1094) For May 2019HEPATIC FUNCTION [id number] 13:11:00 Test Item Value Reference Range Interpretation Comments TOTAL PROTEIN (BEAKER) (test code = 7.3 gm/dL 6.0-8.3 770) ALBUMIN (BEAKER) (test code = 1145) 3.8 g/dL 3.5-5.0 BILIRUBIN TOTAL (BEAKER) (test code 0.6 mg/dL 0.2-1.2 = 377) BILIRUBIN DIRECT (BEAKER) (test 0.3 mg/dL 0.1-0.5 code = 706) ALKALINE PHOSPHATASE (BEAKER) (test 63 U/L 40-150 code = 346) AST (SGOT) (BEAKER) (test code = 19 U/L 5-34 353) ALT (SGPT) (BEAKER) (test code = 11 U/L 6-55 347) For MayMay 2019[facility] METABOLIC [id number] 13:11:00 Test Item Value Reference Range Interpretation Comments SODIUM (BEAKER) 136 meq/L 136-145 (test code = 381) POTASSIUM (BEAKER) 5.8 meq/L 3.5-5.1 H (test code = 379) CHLORIDE (BEAKER) 112 meq/L 98-107 H (test code = 382) CO2 (BEAKER) (test 19 meq/L 22-29 L code = 355) BLOOD UREA NITROGEN 54 mg/dL 7-21 H (BEAKER) (test code = 354) CREATININE (BEAKER) 1.62 mg/dL 0.57-1.25 H (test code = 358) GLUCOSE RANDOM 243 mg/dL 70-105 H (BEAKER) (test code = 652) CALCIUM (BEAKER) 9.1 mg/dL 8.4-10.2 (test code = 697) EGFR (BEAKER) (test 41 mL/min/1.73 ESTIMA ARASH GFR IS code = 1092) sq m NOT ACCURATE CREATININE CLEARANCE IN PREDICTING GLOMERULAR FILTRATION RATE . ESTIMATED GFR I S NOT APPLICABLE FOR DIALYSIS PATIEN TS. For MayMay 2019PROTHROMBIN [id number] 12:48:00 Test Item Value Reference Range Interpretation Comments PROTIME (BEAKER) (test code = 17.0 seconds 11.9-14.2 H 759) INR (BEAKER) (test code = 370) 1.5 <=5.9 Effective 03/29/2019: PT Reference Range ChangeNew: 11.9-14.2 Previous: 11.7- 14.7RECOMMENDED COUMADIN/WARFARIN INR THERAPY RANGESSTANDARD DOSE: 2.0-3.0 Includes: PROPHYLAXIS for venous thrombosis, systemic embolization; TREATMENT for venous thrombosis and/or pulmonary embolus.HIGH RISK: Target INR is 2.5-3.5 for patients wiht mechanical heart valves.For May 2019CB W/PLT COUNT & AUTO [id number] 12:42:00 Test Item Value Reference Range Interpretation Comments WHITE BLOOD CELL COUNT (BEAKER) 2.2 K/ L 3.5-10.5 L (test code = 775) RED BLOOD CELL COUNT (BEAKER) 3.50 M/ L 4.63-6.08 L (test code = 761) HEMOGLOBIN (BEAKER) (test code = 9.5 GM/DL 13.7-17.5 L 410) HEMATOCRIT (BEAKER) (test code = 31.9 % 40.1-51.0 L 411) MEAN CORPUSCULAR VOLUME (BEAKER) 91.1 fL 79.0-92.2 (test code = 753) MEAN CORPUSCULAR HEMOGLOBIN 27.1 pg 25.7-32.2 (BEAKER) (test code = 751) MEAN CORPUSCULAR HEMOGLOBIN CONC 29.8 GM/DL 32.3-36.5 L (BEAKER) (test code = 752) RED CELL DISTRIBUTION WIDTH 18.4 % 11.6-14.4 H (BEAKER) (test code = 412) PLATELET COUNT (BEAKER) (test 111 K/CU MM 150-450 L code = 756) MEAN PLATELET VOLUME (BEAKER) 11.9 fL 9.4-12.4 (test code = 754) NUCLEATED RED BLOOD CELLS 0 /100 WBC 0-0 (BEAKER) (test code = 413) NEUTROPHILS RELATIVE PERCENT 61 % (BEAKER) (test code = 429) LYMPHOCYTES RELATIVE PERCENT 21 % (BEAKER) (test code = 430) MONOCYTES RELATIVE PERCENT 14 % (BEAKER) (test code = 431) EOSINOPHILS RELATIVE PERCENT 3 % (BEAKER) (test code = 432) BASOPHILS RELATIVE PERCENT 1 % (BEAKER) (test code = 437) NEUTROPHILS ABSOLUTE COUNT 1.33 K/ L 1.78-5.38 L (BEAKER) (test code = 670) LYMPHOCYTES ABSOLUTE COUNT 0.45 K/ L 1.32-3.57 L (BEAKER) (test code = 414) MONOCYTES ABSOLUTE COUNT (BEAKER) 0.31 K/ L 0.30-0.82 (test code = 415) EOSINOPHILS ABSOLUTE COUNT 0.06 K/ L 0.04-0.54 (BEAKER) (test code = 416) BASOPHILS ABSOLUTE COUNT (BEAKER) 0.02 K/ L 0.01-0.08 (test code = 417) IMMATURE GRANULOCYTES-RELATIVE 1 % 0-1 PERCENT (BEAKER) (test code = 2801) HEPATITIS C PCR, [id number] 15:48:00 Test Item Value Reference Range Interpretation Comments HCV RESULT COMPONENT HCV RNA not detected HCV RNA not detected (BEAKER) (test code = 2699) This test uses a Real-Time Polymerase Chain Reaction (RT-PCR) methodology and was performed using [employer] Ampliprep/FR[employer] TaqMan HCV test kit version 2.0 ([employer]).Reportable range for this assay is 15 - 100,000,000 IU per mL (1.18 - 8.00 Log IU/mL).HEPATITIS B SURFACE [id number] 15:27:00 Test Item Value Reference Range Interpretation Comments HEPATITIS B SURFACE ANTIBODY < mIU/mL <8.0 (BEAKER) (test code = 647) CBC W/PLT COUNT & AUTO [id number] 13:45:00 Test Item Value Reference Range Interpretation Comments WHITE BLOOD CELL COUNT (BEAKER) 1.7 K/ L 3.5-10.5 L (test code = 775) RED BLOOD CELL COUNT (BEAKER) 3.54 M/ L 4.63-6.08 L (test code = 761) HEMOGLOBIN (BEAKER) (test code = 10.1 GM/DL 13.7-17.5 L 410) HEMATOCRIT (BEAKER) (test code = 33.3 % 40.1-51.0 L 411) MEAN CORPUSCULAR VOLUME (BEAKER) 94.1 fL 79.0-92.2 H (test code = 753) MEAN CORPUSCULAR HEMOGLOBIN 28.5 pg 25.7-32.2 (BEAKER) (test code = 751) MEAN CORPUSCULAR HEMOGLOBIN CONC 30.3 GM/DL 32.3-36.5 L (BEAKER) (test code = 752) RED CELL DISTRIBUTION WIDTH 15.3 % 11.6-14.4 H (BEAKER) (test code = 412) PLATELET COUNT (BEAKER) (test 112 K/CU MM 150-450 L code = 756) MEAN PLATELET VOLUME (BEAKER) 12.0 fL 9.4-12.4 (test code = 754) NUCLEATED RED BLOOD CELLS 0 /100 WBC 0-0 (BEAKER) (test code = 413) (CELLAVISION MANUAL DIFF)[id number] 13:45:00 Test Item Value Reference Range Interpretation Comments NEUTROPHILS - REL 56 % (CELLAVISION)(BEAKER) (test code = 2816) LYMPHOCYTES - REL 17 % (CELLAVISION)(BEAKER) (test code = 2817) MONOCYTES - REL 21 % (CELLAVISION)(BEAKER) (test code = 2818) EOSINOPHILS - REL 6 % (CELLAVISION)(BEAKER) (test code = 2819) ATYPICAL LYMPHOCYTES - REL 1 % 0-0 H (CELLAVISION)(BEAKER) (test code = 2829) NEUTROPHILS - ABS 0.95 K/ul 1.78-5.38 L (CELLAVISION)(BEAKER) (test code = 2830) LYMPHOCYTES - ABS 0.29 K/ul 1.32-3.57 L (CELLAVISION)(BEAKER) (test code = 2831) MONOCYTES - ABS 0.36 K/uL 0.30-0.82 (CELLAVISION)(BEAKER) (test code = 2832) EOSINOPHILS - ABS 0.10 K/uL 0.04-0.54 (CELLAVISION)(BEAKER) (test code = 2834) ATYPICAL LYMPHOCYTES - ABS 0.02 K/uL 0.00-0.00 H (CELLAVISION)(BEAKER) (test code = 2858) TOTAL COUNTED (BEAKER) (test code 100 = 1351) MANUAL NRBC PER 100 CELLS (BEAKER) 1 /100 WBC 0-0 H (test code = 1353) WBC MORPHOLOGY (BEAKER) (test code Normal = 487) PLT MORPHOLOGY (BEAKER) (test code Normal = 486) POLYCHROMATOPHILLIC RBCS(BEAKER) 1+ few (test code = 478) HYPOCHROMIA (BEAKER) (test code = 1+ few 963) OVALOCYTES (BEAKER) (test code = 1+ few 477) ARTIFACT (CELLAVISION)(BEAKER) Present (test code = 3432) PLATELET CONCENTRATION Decreased (CELLAVISION)(BEAKER) (test code = 3438) Received comment: User comments: Slide comments:HEPATIC FUNCTION [id number] 13:10:00 Test Item Value Reference Range Interpretation Comments TOTAL PROTEIN (BEAKER) (test code = 7.3 gm/dL 6.0-8.3 770) ALBUMIN (BEAKER) (test code = 1145) 3.9 g/dL 3.5-5.0 BILIRUBIN TOTAL (BEAKER) (test code 0.6 mg/dL 0.2-1.2 = 377) BILIRUBIN DIRECT (BEAKER) (test 0.3 mg/dL 0.1-0.5 code = 706) ALKALINE PHOSPHATASE (BEAKER) (test 60 U/L 40-150 code = 346) AST (SGOT) (BEAKER) (test code = 21 U/L 5-34 353) ALT (SGPT) (BEAKER) (test code = 11 U/L 6-55 347) BASIC METABOLIC [id number] 13:10:00 Test Item Value Reference Range Interpretation Comments SODIUM (BEAKER) 138 meq/L 136-145 (test code = 381) POTASSIUM (BEAKER) 5.2 meq/L 3.5-5.1 H (test code = 379) CHLORIDE (BEAKER) 110 meq/L 98-107 H (test code = 382) CO2 (BEAKER) (test 20 meq/L 22-29 L code = 355) BLOOD UREA NITROGEN 59 mg/dL 7-21 H (BEAKER) (test code = 354) CREATININE (BEAKER) 1.56 mg/dL 0.57-1.25 H (test code = 358) GLUCOSE RANDOM 173 mg/dL 70-105 H (BEAKER) (test code = 652) CALCIUM (BEAKER) 9.5 mg/dL 8.4-10.2 (test code = 697) EGFR (BEAKER) (test 43 mL/min/1.73 ESTIMA ARASH GFR IS code = 1092) sq m NOT ACCURATE CREATININE CLEARANCE IN PREDICTING GLOMERULAR FILTRATION RATE . ESTIMATED GFR I S NOT APPLICABLE FOR DIALYSIS PATIEN TS. PROTHROMBIN [id number] 13:00:00 Test Item Value Reference Range Interpretation Comments PROTIME (BEAKER) (test code = 24.7 seconds 11.7-14.7 H 759) INR (BEAKER) (test code = 370) 2.2 <=5.9 RECOMMENDED COUMADIN/WARFARIN INR THERAPY RANGESSTANDARD DOSE: 2.0 - 3.0 Includes: PROPHYLAXIS for venous thrombosis, systemic embolization; TREATMENT for venous thrombosis and/or pulmonary embolus.HIGH RISK: Target INR is 2.5-3.5 for patients with mechanical heart valves.HEPATIC FUNCTION [id number] 17:48:00 Test Item Value Reference Range Interpretation Comments TOTAL PROTEIN (BEAKER) (test code = 7.5 gm/dL 6.0-8.3 770) ALBUMIN (BEAKER) (test code = 1145) 4.0 g/dL 3.5-5.0 BILIRUBIN TOTAL (BEAKER) (test code 0.6 mg/dL 0.2-1.2 = 377) BILIRUBIN DIRECT (BEAKER) (test 0.3 mg/dL 0.1-0.5 code = 706) ALKALINE PHOSPHATASE (BEAKER) (test 67 U/L 40-150 code = 346) AST (SGOT) (BEAKER) (test code = 24 U/L 5-34 353) ALT (SGPT) (BEAKER) (test code = 14 U/L 6-55 347) BASIC METABOLIC [id number] 17:48:00 Test Item Value Reference Range Interpretation Comments SODIUM (BEAKER) 138 meq/L 136-145 (test code = 381) POTASSIUM (BEAKER) 5.4 meq/L 3.5-5.1 H (test code = 379) CHLORIDE (BEAKER) 111 meq/L 98-107 H (test code = 382) CO2 (BEAKER) (test 20 meq/L 22-29 L code = 355) BLOOD UREA NITROGEN 61 mg/dL 7-21 H (BEAKER) (test code = 354) CREATININE (BEAKER) 1.58 mg/dL 0.57-1.25 H (test code = 358) GLUCOSE RANDOM 196 mg/dL 70-105 H (BEAKER) (test code = 652) CALCIUM (BEAKER) 9.5 mg/dL 8.4-10.2 (test code = 697) EGFR (BEAKER) (test 43 mL/min/1.73 ESTIMA ARASH GFR IS code = 1092) sq m NOT ACCURATE CREATININE CLEARANCE IN PREDICTING GLOMERULAR FILTRATION RATE . ESTIMATED GFR I S NOT APPLICABLE FOR DIALYSIS PATIEN TS. CBC W/PLT COUNT & AUTO [id number] 17:28:00 Test Item Value Reference Range Interpretation Comments WHITE BLOOD CELL COUNT (BEAKER) 2.9 K/ L 3.5-10.5 L (test code = 775) RED BLOOD CELL COUNT (BEAKER) 3.47 M/ L 4.63-6.08 L (test code = 761) HEMOGLOBIN (BEAKER) (test code = 9.9 GM/DL 13.7-17.5 L 410) HEMATOCRIT (BEAKER) (test code = 33.8 % 40.1-51.0 L 411) MEAN CORPUSCULAR VOLUME (BEAKER) 97.4 fL 79.0-92.2 H (test code = 753) MEAN CORPUSCULAR HEMOGLOBIN 28.5 pg 25.7-32.2 (BEAKER) (test code = 751) MEAN CORPUSCULAR HEMOGLOBIN CONC 29.3 GM/DL 32.3-36.5 L (BEAKER) (test code = 752) RED CELL DISTRIBUTION WIDTH 15.4 % 11.6-14.4 H (BEAKER) (test code = 412) PLATELET COUNT (BEAKER) (test 106 K/CU MM 150-450 L code = 756) MEAN PLATELET VOLUME (BEAKER) 12.1 fL 9.4-12.4 (test code = 754) NUCLEATED RED BLOOD CELLS 0 /100 WBC 0-0 (BEAKER) (test code = 413) NEUTROPHILS RELATIVE PERCENT 68 % (BEAKER) (test code = 429) LYMPHOCYTES RELATIVE PERCENT 19 % (BEAKER) (test code = 430) MONOCYTES RELATIVE PERCENT 10 % (BEAKER) (test code = 431) EOSINOPHILS RELATIVE PERCENT 1 % (BEAKER) (test code = 432) BASOPHILS RELATIVE PERCENT 1 % (BEAKER) (test code = 437) NEUTROPHILS ABSOLUTE COUNT 1.95 K/ L 1.78-5.38 (BEAKER) (test code = 670) LYMPHOCYTES ABSOLUTE COUNT 0.56 K/ L 1.32-3.57 L (BEAKER) (test code = 414) MONOCYTES ABSOLUTE COUNT (BEAKER) 0.30 K/ L 0.30-0.82 (test code = 415) EOSINOPHILS ABSOLUTE COUNT 0.04 K/ L 0.04-0.54 (BEAKER) (test code = 416) BASOPHILS ABSOLUTE COUNT (BEAKER) 0.02 K/ L 0.01-0.08 (test code = 417) IMMATURE GRANULOCYTES-RELATIVE 0 % 0-1 PERCENT (BEAKER) (test code = 2801) PROTHROMBIN [id number] 17:27:00 Test Item Value Reference Range Interpretation Comments PROTIME (BEAKER) (test code = 18.9 seconds 11.7-14.7 H 759) INR (BEAKER) (test code = 370) 1.6 <=5.9 RECOMMENDED COUMADIN/WARFARIN INR THERAPY RANGESSTANDARD DOSE: 2.0 - 3.0 Includes: PROPHYLAXIS for venous thrombosis, systemic embolization; TREATMENT for venous thrombosis and/or pulmonary embolus.HIGH RISK: Target INR is 2.5-3.5 for patients with mechanical heart valves.HEPATIC FUNCTION [id number] 15:00:00 Test Item Value Reference Range Interpretation Comments TOTAL PROTEIN (BEAKER) (test code = 7.5 gm/dL 6.0-8.3 770) ALBUMIN (BEAKER) (test code = 1145) 3.9 g/dL 3.5-5.0 BILIRUBIN TOTAL (BEAKER) (test code 0.7 mg/dL 0.2-1.2 = 377) BILIRUBIN DIRECT (BEAKER) (test 0.3 mg/dL 0.1-0.5 code = 706) ALKALINE PHOSPHATASE (BEAKER) (test 68 U/L 40-150 code = 346) AST (SGOT) (BEAKER) (test code = 22 U/L 5-34 353) ALT (SGPT) (BEAKER) (test code = 11 U/L 6-55 347) BASIC METABOLIC [id number] 15:00:00 Test Item Value Reference Range Interpretation Comments SODIUM (BEAKER) 139 meq/L 136-145 (test code = 381) POTASSIUM (BEAKER) 5.1 meq/L 3.5-5.1 (test code = 379) CHLORIDE (BEAKER) 108 meq/L 98-107 H (test code = 382) CO2 (BEAKER) (test 20 meq/L 22-29 L code = 355) BLOOD UREA NITROGEN 52 mg/dL 7-21 H (BEAKER) (test code = 354) CREATININE (BEAKER) 1.71 mg/dL 0.57-1.25 H (test code = 358) GLUCOSE RANDOM 188 mg/dL 70-105 H (BEAKER) (test code = 652) CALCIUM (BEAKER) 9.2 mg/dL 8.4-10.2 (test code = 697) EGFR (BEAKER) (test 39 mL/min/1.73 ESTIMA ARASH GFR IS code = 1092) sq m NOT ACCURATE CREATININE CLEARANCE IN PREDICTING GLOMERULAR FILTRATION RATE . ESTIMATED GFR I S NOT APPLICABLE FOR DIALYSIS PATIEN TS. PROTHROMBIN [id number] 14:44:00 Test Item Value Reference Range Interpretation Comments PROTIME (BEAKER) (test code = 22.0 seconds 11.7-14.7 H 759) INR (BEAKER) (test code = 370) 1.9 <=5.9 RECOMMENDED COUMADIN/WARFARIN INR THERAPY RANGESSTANDARD DOSE: 2.0 - 3.0 Includes: PROPHYLAXIS for venous thrombosis, systemic embolization; TREATMENT for venous thrombosis and/or pulmonary embolus.HIGH RISK: Target INR is 2.5-3.5 for patients with mechanical heart valves.CBC W/PLT COUNT & AUTO [id number] 14:38:00 Test Item Value Reference Range Interpretation Comments WHITE BLOOD CELL COUNT (BEAKER) 4.2 K/ L 3.5-10.5 (test code = 775) RED BLOOD CELL COUNT (BEAKER) 3.64 M/ L 4.63-6.08 L (test code = 761) HEMOGLOBIN (BEAKER) (test code = 10.5 GM/DL 13.7-17.5 L 410) HEMATOCRIT (BEAKER) (test code = 35.3 % 40.1-51.0 L 411) MEAN CORPUSCULAR VOLUME (BEAKER) 97.0 fL 79.0-92.2 H (test code = 753) MEAN CORPUSCULAR HEMOGLOBIN 28.8 pg 25.7-32.2 (BEAKER) (test code = 751) MEAN CORPUSCULAR HEMOGLOBIN CONC 29.7 GM/DL 32.3-36.5 L (BEAKER) (test code = 752) RED CELL DISTRIBUTION WIDTH 15.5 % 11.6-14.4 H (BEAKER) (test code = 412) PLATELET COUNT (BEAKER) (test 125 K/CU MM 150-450 L code = 756) MEAN PLATELET VOLUME (BEAKER) 12.1 fL 9.4-12.4 (test code = 754) NUCLEATED RED BLOOD CELLS 0 /100 WBC 0-0 (BEAKER) (test code = 413) NEUTROPHILS RELATIVE PERCENT 75 % (BEAKER) (test code = 429) LYMPHOCYTES RELATIVE PERCENT 15 % (BEAKER) (test code = 430) MONOCYTES RELATIVE PERCENT 8 % (BEAKER) (test code = 431) EOSINOPHILS RELATIVE PERCENT 1 % (BEAKER) (test code = 432) BASOPHILS RELATIVE PERCENT 1 % (BEAKER) (test code = 437) NEUTROPHILS ABSOLUTE COUNT 3.13 K/ L 1.78-5.38 (BEAKER) (test code = 670) LYMPHOCYTES ABSOLUTE COUNT 0.63 K/ L 1.32-3.57 L (BEAKER) (test code = 414) MONOCYTES ABSOLUTE COUNT (BEAKER) 0.34 K/ L 0.30-0.82 (test code = 415) EOSINOPHILS ABSOLUTE COUNT 0.04 K/ L 0.04-0.54 (BEAKER) (test code = 416) BASOPHILS ABSOLUTE COUNT (BEAKER) 0.03 K/ L 0.01-0.08 (test code = 417) IMMATURE GRANULOCYTES-RELATIVE 1 % 0-1 PERCENT (BEAKER) (test code = 2801) HEPATIC FUNCTION [id number] 15:18:00 Test Item Value Reference Range Interpretation Comments TOTAL PROTEIN (BEAKER) (test code = 7.7 gm/dL 6.0-8.3 770) ALBUMIN (BEAKER) (test code = 1145) 3.9 g/dL 3.5-5.0 BILIRUBIN TOTAL (BEAKER) (test code 0.6 mg/dL 0.2-1.2 = 377) BILIRUBIN DIRECT (BEAKER) (test 0.3 mg/dL 0.1-0.5 code = 706) ALKALINE PHOSPHATASE (BEAKER) (test 64 U/L 40-150 code = 346) AST (SGOT) (BEAKER) (test code = 22 U/L 5-34 353) ALT (SGPT) (BEAKER) (test code = 11 U/L 6-55 347) BASIC METABOLIC [id number] 15:18:00 Test Item Value Reference Range Interpretation Comments SODIUM (BEAKER) 136 meq/L 136-145 (test code = 381) POTASSIUM (BEAKER) 4.5 meq/L 3.5-5.1 (test code = 379) CHLORIDE (BEAKER) 109 meq/L 98-107 H (test code = 382) CO2 (BEAKER) (test 21 meq/L 22-29 L code = 355) BLOOD UREA NITROGEN 45 mg/dL 7-21 H (BEAKER) (test code = 354) CREATININE (BEAKER) 1.40 mg/dL 0.57-1.25 H (test code = 358) GLUCOSE RANDOM 146 mg/dL 70-105 H (BEAKER) (test code = 652) CALCIUM (BEAKER) 9.3 mg/dL 8.4-10.2 (test code = 697) EGFR (BEAKER) (test 49 mL/min/1.73 ESTIMA ARASH GFR IS code = 1092) sq m NOT ACCURATE CREATININE CLEARANCE IN PREDICTING GLOMERULAR FILTRATION RATE . ESTIMATED GFR I S NOT APPLICABLE FOR DIALYSIS PATIEN TS. PROTHROMBIN [id number] 14:59:00 Test Item Value Reference Range Interpretation Comments PROTIME (BEAKER) (test code = 21.6 seconds 11.7-14.7 H 759) INR (BEAKER) (test code = 370) 1.9 <=5.9 RECOMMENDED COUMADIN/WARFARIN INR THERAPY RANGESSTANDARD DOSE: 2.0 - 3.0 Includes: PROPHYLAXIS for venous thrombosis, systemic embolization; TREATMENT for venous thrombosis and/or pulmonary embolus.HIGH RISK: Target INR is 2.5-3.5 for patients with mechanical heart valves.CBC W/PLT COUNT & AUTO [id number] 14:48:00 Test Item Value Reference Range Interpretation Comments WHITE BLOOD CELL COUNT (BEAKER) 3.0 K/ L 3.5-10.5 L (test code = 775) RED BLOOD CELL COUNT (BEAKER) 3.53 M/ L 4.63-6.08 L (test code = 761) HEMOGLOBIN (BEAKER) (test code = 10.4 GM/DL 13.7-17.5 L 410) HEMATOCRIT (BEAKER) (test code = 34.1 % 40.1-51.0 L 411) MEAN CORPUSCULAR VOLUME (BEAKER) 96.6 fL 79.0-92.2 H (test code = 753) MEAN CORPUSCULAR HEMOGLOBIN 29.5 pg 25.7-32.2 (BEAKER) (test code = 751) MEAN CORPUSCULAR HEMOGLOBIN CONC 30.5 GM/DL 32.3-36.5 L (BEAKER) (test code = 752) RED CELL DISTRIBUTION WIDTH 15.3 % 11.6-14.4 H (BEAKER) (test code = 412) PLATELET COUNT (BEAKER) (test code 94 K/CU MM 150-450 L = 756) MEAN PLATELET VOLUME (BEAKER) 12.3 fL 9.4-12.4 (test code = 754) NUCLEATED RED BLOOD CELLS (BEAKER) 0 /100 WBC 0-0 (test code = 413) NEUTROPHILS RELATIVE PERCENT 65 % (BEAKER) (test code = 429) LYMPHOCYTES RELATIVE PERCENT 21 % (BEAKER) (test code = 430) MONOCYTES RELATIVE PERCENT 11 % (BEAKER) (test code = 431) EOSINOPHILS RELATIVE PERCENT 2 % (BEAKER) (test code = 432) BASOPHILS RELATIVE PERCENT 1 % (BEAKER) (test code = 437) NEUTROPHILS ABSOLUTE COUNT 1.97 K/ L 1.78-5.38 (BEAKER) (test code = 670) LYMPHOCYTES ABSOLUTE COUNT 0.64 K/ L 1.32-3.57 L (BEAKER) (test code = 414) MONOCYTES ABSOLUTE COUNT (BEAKER) 0.34 K/ L 0.30-0.82 (test code = 415) EOSINOPHILS ABSOLUTE COUNT 0.06 K/ L 0.04-0.54 (BEAKER) (test code = 416) BASOPHILS ABSOLUTE COUNT (BEAKER) 0.02 K/ L 0.01-0.08 (test code = 417) IMMATURE GRANULOCYTES-RELATIVE 0 % 0-1 PERCENT (BEAKER) (test code = 2801) HEPATITIS C PCR, [id number] 06:27:00 Test Item Value Reference Range Interpretation Comments HCV RESULT COMPONENT HCV RNA not detected HCV RNA not detected (BEAKER) (test code = 2699) This test uses a Real-Time Polymerase Chain Reaction (RT-PCR) methodology and was performed using [employer] Ampliprep/[employer] TaqMan HCV test kit version 2.0 ([employer]).Reportable range for this assay is 15 - 100,000,000 IU per mL (1.18 - 8.00 Log IU/mL).ALPHA FETOPROTEIN (AFP), TUMOR [id number] 19:20:00 Test Item Value Reference Range Interpretation Comments ALPHA-FETOPROTEIN (BEAKER) (test code < ng/mL <10.0 = 1094) HEPATIC FUNCTION [id number] 17:58:00 Test Item Value Reference Range Interpretation Comments TOTAL PROTEIN (BEAKER) (test code = 7.6 gm/dL 6.0-8.3 770) ALBUMIN (BEAKER) (test code = 1145) 3.8 g/dL 3.5-5.0 BILIRUBIN TOTAL (BEAKER) (test code 0.5 mg/dL 0.2-1.2 = 377) BILIRUBIN DIRECT (BEAKER) (test 0.2 mg/dL 0.1-0.5 code = 706) ALKALINE PHOSPHATASE (BEAKER) (test 64 U/L 40-150 code = 346) AST (SGOT) (BEAKER) (test code = 22 U/L 5-34 353) ALT (SGPT) (BEAKER) (test code = 10 U/L 6-55 347) BASIC METABOLIC [id number] 17:58:00 Test Item Value Reference Range Interpretation Comments SODIUM (BEAKER) 139 meq/L 136-145 (test code = 381) POTASSIUM (BEAKER) 5.1 meq/L 3.5-5.1 (test code = 379) CHLORIDE (BEAKER) 111 meq/L 98-107 H (test code = 382) CO2 (BEAKER) (test 21 meq/L 22-29 L code = 355) BLOOD UREA NITROGEN 47 mg/dL 7-21 H (BEAKER) (test code = 354) CREATININE (BEAKER) 1.46 mg/dL 0.57-1.25 H (test code = 358) GLUCOSE RANDOM 163 mg/dL 70-105 H (BEAKER) (test code = 652) CALCIUM (BEAKER) 9.4 mg/dL 8.4-10.2 (test code = 697) EGFR (BEAKER) (test 47 mL/min/1.73 ESTIMA ARASH GFR IS code = 1092) sq m NOT ACCURATE CREATININE CLEARANCE IN PREDICTING GLOMERULAR FILTRATION RATE . ESTIMATED GFR I S NOT APPLICABLE FOR DIALYSIS PATIEN TS. PROTHROMBIN [id number] 17:37:00 Test Item Value Reference Range Interpretation Comments PROTIME (BEAKER) (test code = 20.0 seconds 11.7-14.7 H 759) INR (BEAKER) (test code = 370) 1.7 <=5.9 RECOMMENDED COUMADIN/WARFARIN INR THERAPY RANGESSTANDARD DOSE: 2.0 - 3.0 Includes: PROPHYLAXIS for venous thrombosis, systemic embolization; TREATMENT for venous thrombosis and/or pulmonary embolus.HIGH RISK: Target INR is 2.5-3.5 for patients with mechanical heart valves.CBC W/PLT COUNT & AUTO [id number] 17:33:00 Test Item Value Reference Range Interpretation Comments WHITE BLOOD CELL COUNT (BEAKER) 3.2 K/ L 3.5-10.5 L (test code = 775) RED BLOOD CELL COUNT (BEAKER) 3.44 M/ L 4.63-6.08 L (test code = 761) HEMOGLOBIN (BEAKER) (test code = 10.0 GM/DL 13.7-17.5 L 410) HEMATOCRIT (BEAKER) (test code = 33.4 % 40.1-51.0 L 411) MEAN CORPUSCULAR VOLUME (BEAKER) 97.1 fL 79.0-92.2 H (test code = 753) MEAN CORPUSCULAR HEMOGLOBIN 29.1 pg 25.7-32.2 (BEAKER) (test code = 751) MEAN CORPUSCULAR HEMOGLOBIN CONC 29.9 GM/DL 32.3-36.5 L (BEAKER) (test code = 752) RED CELL DISTRIBUTION WIDTH 14.5 % 11.6-14.4 H (BEAKER) (test code = 412) PLATELET COUNT (BEAKER) (test 139 K/CU MM 150-450 L code = 756) MEAN PLATELET VOLUME (BEAKER) 12.0 fL 9.4-12.4 (test code = 754) NUCLEATED RED BLOOD CELLS 0 /100 WBC 0-0 (BEAKER) (test code = 413) NEUTROPHILS RELATIVE PERCENT 66 % (BEAKER) (test code = 429) LYMPHOCYTES RELATIVE PERCENT 19 % (BEAKER) (test code = 430) MONOCYTES RELATIVE PERCENT 11 % (BEAKER) (test code = 431) EOSINOPHILS RELATIVE PERCENT 2 % (BEAKER) (test code = 432) BASOPHILS RELATIVE PERCENT 1 % (BEAKER) (test code = 437) NEUTROPHILS ABSOLUTE COUNT 2.14 K/ L 1.78-5.38 (BEAKER) (test code = 670) LYMPHOCYTES ABSOLUTE COUNT 0.62 K/ L 1.32-3.57 L (BEAKER) (test code = 414) MONOCYTES ABSOLUTE COUNT (BEAKER) 0.36 K/ L 0.30-0.82 (test code = 415) EOSINOPHILS ABSOLUTE COUNT 0.06 K/ L 0.04-0.54 (BEAKER) (test code = 416) BASOPHILS ABSOLUTE COUNT (BEAKER) 0.04 K/ L 0.01-0.08 (test code = 417) IMMATURE GRANULOCYTES-RELATIVE 0 % 0-1 PERCENT (BEAKER) (test code = 2801) HEPATIC FUNCTION [id number] 15:56:00 Test Item Value Reference Range Interpretation Comments TOTAL PROTEIN (BEAKER) (test code = 7.9 gm/dL 6.0-8.3 770) ALBUMIN (BEAKER) (test code = 1145) 3.8 g/dL 3.5-5.0 BILIRUBIN TOTAL (BEAKER) (test code 0.7 mg/dL 0.2-1.2 = 377) BILIRUBIN DIRECT (BEAKER) (test 0.4 mg/dL 0.1-0.5 code = 706) ALKALINE PHOSPHATASE (BEAKER) (test 70 U/L 40-150 code = 346) AST (SGOT) (BEAKER) (test code = 19 U/L 5-34 353) ALT (SGPT) (BEAKER) (test code = 11 U/L 6-55 347) BASIC METABOLIC [id number] 15:56:00 Test Item Value Reference Range Interpretation Comments SODIUM (BEAKER) 135 meq/L 136-145 L (test code = 381) POTASSIUM (BEAKER) 4.7 meq/L 3.5-5.1 (test code = 379) CHLORIDE (BEAKER) 107 meq/L 98-107 (test code = 382) CO2 (BEAKER) (test 21 meq/L 22-29 L code = 355) BLOOD UREA NITROGEN 49 mg/dL 7-21 H (BEAKER) (test code = 354) CREATININE (BEAKER) 1.56 mg/dL 0.57-1.25 H (test code = 358) GLUCOSE RANDOM 200 mg/dL 70-105 H (BEAKER) (test code = 652) CALCIUM (BEAKER) 9.4 mg/dL 8.4-10.2 (test code = 697) EGFR (BEAKER) (test 43 mL/min/1.73 ESTIMA ARASH GFR IS code = 1092) sq m NOT ACCURATE CREATININE CLEARANCE IN PREDICTING GLOMERULAR FILTRATION RATE . ESTIMATED GFR I S NOT APPLICABLE FOR DIALYSIS PATIEN TS. PROTHROMBIN [id number] 15:43:00 Test Item Value Reference Range Interpretation Comments PROTIME (BEAKER) (test code = 20.7 seconds 11.7-14.7 H 759) INR (BEAKER) (test code = 370) 1.8 <=5.9 RECOMMENDED COUMADIN/WARFARIN INR THERAPY RANGESSTANDARD DOSE: 2.0 - 3.0 Includes: PROPHYLAXIS for venous thrombosis, systemic embolization; TREATMENT for venous thrombosis and/or pulmonary embolus.HIGH RISK: Target INR is 2.5-3.5 for patients with mechanical heart valves.CBC W/PLT COUNT & AUTO [id number] 15:37:00 Test Item Value Reference Range Interpretation Comments WHITE BLOOD CELL COUNT (BEAKER) 4.7 K/ L 3.5-10.5 (test code = 775) RED BLOOD CELL COUNT (BEAKER) 3.72 M/ L 4.63-6.08 L (test code = 761) HEMOGLOBIN (BEAKER) (test code = 10.9 GM/DL 13.7-17.5 L 410) HEMATOCRIT (BEAKER) (test code = 35.4 % 40.1-51.0 L 411) MEAN CORPUSCULAR VOLUME (BEAKER) 95.2 fL 79.0-92.2 H (test code = 753) MEAN CORPUSCULAR HEMOGLOBIN 29.3 pg 25.7-32.2 (BEAKER) (test code = 751) MEAN CORPUSCULAR HEMOGLOBIN CONC 30.8 GM/DL 32.3-36.5 L (BEAKER) (test code = 752) RED CELL DISTRIBUTION WIDTH 14.4 % 11.6-14.4 (BEAKER) (test code = 412) PLATELET COUNT (BEAKER) (test 114 K/CU MM 150-450 L code = 756) MEAN PLATELET VOLUME (BEAKER) 11.2 fL 9.4-12.4 (test code = 754) NUCLEATED RED BLOOD CELLS 0 /100 WBC 0-0 (BEAKER) (test code = 413) NEUTROPHILS RELATIVE PERCENT 78 % (BEAKER) (test code = 429) LYMPHOCYTES RELATIVE PERCENT 11 % (BEAKER) (test code = 430) MONOCYTES RELATIVE PERCENT 10 % (BEAKER) (test code = 431) EOSINOPHILS RELATIVE PERCENT 1 % (BEAKER) (test code = 432) BASOPHILS RELATIVE PERCENT 0 % (BEAKER) (test code = 437) NEUTROPHILS ABSOLUTE COUNT 3.63 K/ L 1.78-5.38 (BEAKER) (test code = 670) LYMPHOCYTES ABSOLUTE COUNT 0.50 K/ L 1.32-3.57 L (BEAKER) (test code = 414) MONOCYTES ABSOLUTE COUNT (BEAKER) 0.45 K/ L 0.30-0.82 (test code = 415) EOSINOPHILS ABSOLUTE COUNT 0.05 K/ L 0.04-0.54 (BEAKER) (test code = 416) BASOPHILS ABSOLUTE COUNT (BEAKER) 0.02 K/ L 0.01-0.08 (test code = 417) IMMATURE GRANULOCYTES-RELATIVE 0 % 0-1 PERCENT (BEAKER) (test code = 2801) HEPATIC FUNCTION [id number] 17:34:00 Test Item Value Reference Range Interpretation Comments TOTAL PROTEIN (BEAKER) (test code = 7.7 gm/dL 6.0-8.3 770) ALBUMIN (BEAKER) (test code = 1145) 3.9 g/dL 3.5-5.0 BILIRUBIN TOTAL (BEAKER) (test code 0.5 mg/dL 0.2-1.2 = 377) BILIRUBIN DIRECT (BEAKER) (test 0.3 mg/dL 0.1-0.5 code = 706) ALKALINE PHOSPHATASE (BEAKER) (test 75 U/L 40-150 code = 346) AST (SGOT) (BEAKER) (test code = 23 U/L 5-34 353) ALT (SGPT) (BEAKER) (test code = 19 U/L 6-55 347) BASIC METABOLIC [id number] 17:34:00 Test Item Value Reference Range Interpretation Comments SODIUM (BEAKER) 138 meq/L 136-145 (test code = 381) POTASSIUM (BEAKER) 5.5 meq/L 3.5-5.1 H (test code = 379) CHLORIDE (BEAKER) 113 meq/L 98-107 H (test code = 382) CO2 (BEAKER) (test 20 meq/L 22-29 L code = 355) BLOOD UREA NITROGEN 51 mg/dL 7-21 H (BEAKER) (test code = 354) CREATININE (BEAKER) 1.49 mg/dL 0.57-1.25 H (test code = 358) GLUCOSE RANDOM 240 mg/dL 70-105 H (BEAKER) (test code = 652) CALCIUM (BEAKER) 9.5 mg/dL 8.4-10.2 (test code = 697) EGFR (BEAKER) (test 46 mL/min/1.73 ESTIMA ARASH GFR IS code = 1092) sq m NOT ACCURATE CREATININE CLEARANCE IN PREDICTING GLOMERULAR FILTRATION RATE . ESTIMATED GFR I S NOT APPLICABLE FOR DIALYSIS PATIEN TS. PROTHROMBIN [id number] 17:14:00 Test Item Value Reference Range Interpretation Comments PROTIME (BEAKER) (test code = 18.3 seconds 11.7-14.7 H 759) INR (BEAKER) (test code = 370) 1.5 <=5.9 RECOMMENDED COUMADIN/WARFARIN INR THERAPY RANGESSTANDARD DOSE: 2.0 - 3.0 Includes: PROPHYLAXIS for venous thrombosis, systemic embolization; TREATMENT for venous thrombosis and/or pulmonary embolus.HIGH RISK: Target INR is 2.5-3.5 for patients with mechanical heart valves.CBC W/PLT COUNT & AUTO [id number] 17:03:00 Test Item Value Reference Range Interpretation Comments WHITE BLOOD CELL COUNT (BEAKER) 2.9 K/ L 3.5-10.5 L (test code = 775) RED BLOOD CELL COUNT (BEAKER) 3.28 M/ L 4.63-6.08 L (test code = 761) HEMOGLOBIN (BEAKER) (test code = 9.6 GM/DL 13.7-17.5 L 410) HEMATOCRIT (BEAKER) (test code = 32.0 % 40.1-51.0 L 411) MEAN CORPUSCULAR VOLUME (BEAKER) 97.6 fL 79.0-92.2 H (test code = 753) MEAN CORPUSCULAR HEMOGLOBIN 29.3 pg 25.7-32.2 (BEAKER) (test code = 751) MEAN CORPUSCULAR HEMOGLOBIN CONC 30.0 GM/DL 32.3-36.5 L (BEAKER) (test code = 752) RED CELL DISTRIBUTION WIDTH 14.8 % 11.6-14.4 H (BEAKER) (test code = 412) PLATELET COUNT (BEAKER) (test code 99 K/CU MM 150-450 L = 756) MEAN PLATELET VOLUME (BEAKER) 12.6 fL 9.4-12.4 H (test code = 754) NUCLEATED RED BLOOD CELLS (BEAKER) 0 /100 WBC 0-0 (test code = 413) NEUTROPHILS RELATIVE PERCENT 68 % (BEAKER) (test code = 429) LYMPHOCYTES RELATIVE PERCENT 19 % (BEAKER) (test code = 430) MONOCYTES RELATIVE PERCENT 12 % (BEAKER) (test code = 431) EOSINOPHILS RELATIVE PERCENT 1 % (BEAKER) (test code = 432) BASOPHILS RELATIVE PERCENT 1 % (BEAKER) (test code = 437) NEUTROPHILS ABSOLUTE COUNT 1.94 K/ L 1.78-5.38 (BEAKER) (test code = 670) LYMPHOCYTES ABSOLUTE COUNT 0.54 K/ L 1.32-3.57 L (BEAKER) (test code = 414) MONOCYTES ABSOLUTE COUNT (BEAKER) 0.33 K/ L 0.30-0.82 (test code = 415) EOSINOPHILS ABSOLUTE COUNT 0.03 K/ L 0.04-0.54 L (BEAKER) (test code = 416) BASOPHILS ABSOLUTE COUNT (BEAKER) 0.02 K/ L 0.01-0.08 (test code = 417) IMMATURE GRANULOCYTES-RELATIVE 0 % 0-1 PERCENT (BEAKER) (test code = 2801) HEPATIC FUNCTION [id number] 18:36:00 Test Item Value Reference Range Interpretation Comments TOTAL PROTEIN (BEAKER) 7.9 gm/dL 6.0-8.3 Speci men slightly (test code = 770) hemolyzed ALBUMIN (BEAKER) (test 3.9 g/dL 3.5-5.0 Speci men slightly code = 1145) hemolyzed BILIRUBIN TOTAL 0.6 mg/dL 0.2-1.2 Specimen sli ghtly (BEAKER) (test code = hemoly zed 377) BILIRUBIN DIRECT 0.2 mg/dL 0.1-0.5 Specimen sl ightly (BEAKER) (test code = hemoly zed 706) ALKALINE PHOSPHATASE 89 U/L 40-150 (BEAKER) (test code = 346) AST (SGOT) (BEAKER) 30 U/L 5-34 Specimen slightly (test code = 353) hemolyzed ALT (SGPT) (BEAKER) 47 U/L 6-55 Specimen slightly (test code = 347) hemolyzed BASIC METABOLIC [id number] 18:00:00 Test Item Value Reference Range Interpretation Comments SODIUM (BEAKER) 140 meq/L 136-145 (test code = 381) POTASSIUM (BEAKER) 5.6 meq/L 3.5-5.1 H Specimen slightly (test code = 379) hemolyzed CHLORIDE (BEAKER) 111 meq/L 98-107 H (test code = 382) CO2 (BEAKER) (test 20 meq/L 22-29 L code = 355) BLOOD UREA NITROGEN 62 mg/dL 7-21 H (BEAKER) (test code = 354) CREATININE (BEAKER) 1.62 mg/dL 0.57-1.25 H Specimen slightly (test code = 358) hemolyzed GLUCOSE RANDOM 299 mg/dL 70-105 H (BEAKER) (test code = 652) CALCIUM (BEAKER) 9.7 mg/dL 8.4-10.2 (test code = 697) EGFR (BEAKER) (test 41 mL/min/1.73 ESTIMA ARASH GFR IS code = 1092) sq m NOT ACCURATE CREATININE CLEARANCE IN PREDICTING GLOMERULAR FILTRATION RATE . ESTIMATED GFR I S NOT APPLICABLE FOR DIALYSIS PATIEN TS. PROTHROMBIN [id number] 17:05:00 Test Item Value Reference Range Interpretation Comments PROTIME (BEAKER) (test code = 19.1 seconds 11.7-14.7 H 759) INR (BEAKER) (test code = 370) 1.6 <=5.9 RECOMMENDED COUMADIN/WARFARIN INR THERAPY RANGESSTANDARD DOSE: 2.0 - 3.0 Includes: PROPHYLAXIS for venous thrombosis, systemic embolization; TREATMENT for venous thrombosis and/or pulmonary embolus.HIGH RISK: Target INR is 2.5-3.5 for patients with mechanical heart valves.CBC W/PLT COUNT & AUTO [id number] 16:55:00 Test Item Value Reference Range Interpretation Comments WHITE BLOOD CELL COUNT (BEAKER) 3.1 K/ L 3.5-10.5 L (test code = 775) RED BLOOD CELL COUNT (BEAKER) 3.31 M/ L 4.63-6.08 L (test code = 761) HEMOGLOBIN (BEAKER) (test code = 9.7 GM/DL 13.7-17.5 L 410) HEMATOCRIT (BEAKER) (test code = 32.0 % 40.1-51.0 L 411) MEAN CORPUSCULAR VOLUME (BEAKER) 96.7 fL 79.0-92.2 H (test code = 753) MEAN CORPUSCULAR HEMOGLOBIN 29.3 pg 25.7-32.2 (BEAKER) (test code = 751) MEAN CORPUSCULAR HEMOGLOBIN CONC 30.3 GM/DL 32.3-36.5 L (BEAKER) (test code = 752) RED CELL DISTRIBUTION WIDTH 14.8 % 11.6-14.4 H (BEAKER) (test code = 412) PLATELET COUNT (BEAKER) (test code 97 K/CU MM 150-450 L = 756) MEAN PLATELET VOLUME (BEAKER) 12.7 fL 9.4-12.4 H (test code = 754) NUCLEATED RED BLOOD CELLS (BEAKER) 0 /100 WBC 0-0 (test code = 413) NEUTROPHILS RELATIVE PERCENT 70 % (BEAKER) (test code = 429) LYMPHOCYTES RELATIVE PERCENT 17 % (BEAKER) (test code = 430) MONOCYTES RELATIVE PERCENT 10 % (BEAKER) (test code = 431) EOSINOPHILS RELATIVE PERCENT 1 % (BEAKER) (test code = 432) BASOPHILS RELATIVE PERCENT 1 % (BEAKER) (test code = 437) NEUTROPHILS ABSOLUTE COUNT 2.17 K/ L 1.78-5.38 (BEAKER) (test code = 670) LYMPHOCYTES ABSOLUTE COUNT 0.53 K/ L 1.32-3.57 L (BEAKER) (test code = 414) MONOCYTES ABSOLUTE COUNT (BEAKER) 0.31 K/ L 0.30-0.82 (test code = 415) EOSINOPHILS ABSOLUTE COUNT 0.04 K/ L 0.04-0.54 (BEAKER) (test code = 416) BASOPHILS ABSOLUTE COUNT (BEAKER) 0.03 K/ L 0.01-0.08 (test code = 417) IMMATURE GRANULOCYTES-RELATIVE 1 % 0-1 PERCENT (BEAKER) (test code = 2801) ALPHA FETOPROTEIN (AFP), TUMOR [id number] 15:35:00 Test Item Value Reference Range Interpretation Comments ALPHA-FETOPROTEIN (BEAKER) (test code < ng/mL <10.0 = 1094) HEPATIC FUNCTION [id number] 15:26:00 Test Item Value Reference Range Interpretation Comments TOTAL PROTEIN (BEAKER) (test code = 7.8 gm/dL 6.0-8.3 770) ALBUMIN (BEAKER) (test code = 1145) 3.8 g/dL 3.5-5.0 BILIRUBIN TOTAL (BEAKER) (test code 0.5 mg/dL 0.2-1.2 = 377) BILIRUBIN DIRECT (BEAKER) (test 0.3 mg/dL 0.1-0.5 code = 706) ALKALINE PHOSPHATASE (BEAKER) (test 92 U/L 40-150 code = 346) AST (SGOT) (BEAKER) (test code = 75 U/L 5-34 H 353) ALT (SGPT) (BEAKER) (test code = 87 U/L 6-55 H 347) BASIC METABOLIC [id number] 15:26:00 Test Item Value Reference Range Interpretation Comments SODIUM (BEAKER) 136 meq/L 136-145 (test code = 381) POTASSIUM (BEAKER) 5.2 meq/L 3.5-5.1 H (test code = 379) CHLORIDE (BEAKER) 110 meq/L 98-107 H (test code = 382) CO2 (BEAKER) (test 17 meq/L 22-29 L code = 355) BLOOD UREA NITROGEN 54 mg/dL 7-21 H (BEAKER) (test code = 354) CREATININE (BEAKER) 1.81 mg/dL 0.57-1.25 H (test code = 358) GLUCOSE RANDOM 231 mg/dL 70-105 H (BEAKER) (test code = 652) CALCIUM (BEAKER) 9.4 mg/dL 8.4-10.2 (test code = 697) EGFR (BEAKER) (test 36 mL/min/1.73 ESTIMA ARASH GFR IS code = 1092) sq m NOT ACCURATE CREATININE CLEARANCE IN PREDICTING GLOMERULAR FILTRATION RATE . ESTIMATED GFR I S NOT APPLICABLE FOR DIALYSIS PATIEN TS. PROTHROMBIN [id number] 14:45:00 Test Item Value Reference Range Interpretation Comments PROTIME (BEAKER) (test code = 19.9 seconds 11.7-14.7 H 759) INR (BEAKER) (test code = 370) 1.7 <=5.9 RECOMMENDED COUMADIN/WARFARIN INR THERAPY RANGESSTANDARD DOSE: 2.0 - 3.0 Includes: PROPHYLAXIS for venous thrombosis, systemic embolization; TREATMENT for venous thrombosis and/or pulmonary embolus.HIGH RISK: Target INR is 2.5-3.5 for patients with mechanical heart valves.CBC W/PLT COUNT & AUTO [id number] 14:39:00 Test Item Value Reference Range Interpretation Comments WHITE BLOOD CELL COUNT (BEAKER) 3.0 K/ L 3.5-10.5 L (test code = 775) RED BLOOD CELL COUNT (BEAKER) 3.36 M/ L 4.63-6.08 L (test code = 761) HEMOGLOBIN (BEAKER) (test code = 10.0 GM/DL 13.7-17.5 L 410) HEMATOCRIT (BEAKER) (test code = 32.7 % 40.1-51.0 L 411) MEAN CORPUSCULAR VOLUME (BEAKER) 97.3 fL 79.0-92.2 H (test code = 753) MEAN CORPUSCULAR HEMOGLOBIN 29.8 pg 25.7-32.2 (BEAKER) (test code = 751) MEAN CORPUSCULAR HEMOGLOBIN CONC 30.6 GM/DL 32.3-36.5 L (BEAKER) (test code = 752) RED CELL DISTRIBUTION WIDTH 15.0 % 11.6-14.4 H (BEAKER) (test code = 412) PLATELET COUNT (BEAKER) (test 101 K/CU MM 150-450 L code = 756) MEAN PLATELET VOLUME (BEAKER) 12.0 fL 9.4-12.4 (test code = 754) NUCLEATED RED BLOOD CELLS 0 /100 WBC 0-0 (BEAKER) (test code = 413) NEUTROPHILS RELATIVE PERCENT 71 % (BEAKER) (test code = 429) LYMPHOCYTES RELATIVE PERCENT 15 % (BEAKER) (test code = 430) MONOCYTES RELATIVE PERCENT 11 % (BEAKER) (test code = 431) EOSINOPHILS RELATIVE PERCENT 1 % (BEAKER) (test code = 432) BASOPHILS RELATIVE PERCENT 1 % (BEAKER) (test code = 437) NEUTROPHILS ABSOLUTE COUNT 2.15 K/ L 1.78-5.38 (BEAKER) (test code = 670) LYMPHOCYTES ABSOLUTE COUNT 0.45 K/ L 1.32-3.57 L (BEAKER) (test code = 414) MONOCYTES ABSOLUTE COUNT (BEAKER) 0.34 K/ L 0.30-0.82 (test code = 415) EOSINOPHILS ABSOLUTE COUNT 0.04 K/ L 0.04-0.54 (BEAKER) (test code = 416) BASOPHILS ABSOLUTE COUNT (BEAKER) 0.02 K/ L 0.01-0.08 (test code = 417) IMMATURE GRANULOCYTES-RELATIVE 0 % 0-1 PERCENT (BEAKER) (test code = 2801) TISSUE [id number] 11:53:00Surgical Pathology Report Case: [id number] Authorizing Provider: Flora Weinberg MD Collected: 06/06/2018 1434 Ordering Location: [facility] Endoscopy Received: 06/06/2018 1605 Services Pathologist: Yuan Amezcua MD Specimens: A) - Stomach, Antrum, ANTRUM BX B) - Polyp, Gastric, GASTRIC FUNDUS POLYP - CBX C) - Polyp, Colon - Sigmoid, SIGMOID COLON POLYPS- COLD SNARE, CBX D) - Polyp, Colon - Cecum, CECUM POLYP - CBX PART A GASTRIC ANTRUM, BIOPSY:FOCALLY ACTIVE CHRONIC GASTRITIS.WARTHIN STARRY STAIN FOR HELICOBACTER IS NEGATIVE.PART B GASTRIC BIOPSY FOR SUSPECTED POLYP:GASTRIC MUCOSA WITH MILD FOVEOLAR HYPERPLASIA.WARTHIN STARRY STAIN FOR HELICOBACTER IS NEGATIVE.PART C SIGMOID COLONPOLYP, BIOPSY:HYPERPLASTIC POLYP, MULTIPLE.PART D CECAL POLYP, BIOPSY:MILDLY EDEMATOUS COLONIC MUCOSA WITHOUT SIGNIFICANT HISTOPATHOLOGIC ALTERATION. Signing Pathologist Direct Phone Line: [phone] signed by Yuan Amezcua MD on 06/07/2018 at 11:53 [id number], [id number] hepatitis C without hepatic coma. Portal hypertensionA. Stomach antrum biopsy; B. Gastric fundus polyp;C. Sigmoid colon polyp; D. Cecum colon polypThe specimen is received in four containers of formalin all labeled with the patient's information. Specimen A labeled "stomach antrum biopsy" consists of two fragments of rivera tissue measuring 0.1 and 0.5 cm, submitted A1. Specimen B labeled "gastric fundus polyp" consists of three fragments of rivera tissue ranging from less than 0.1 to 0.2 cm, submitted B1. S pecimen C labeled "sigmoid colon polyps" consists of multiple fragments of rivera tissue ranging from 0.1 to 0.8 cm, submitted C1. Specimen D labeled "sigmoid colon polyp" consists of two round fragments of rivera tissue measuring 0.1 and 0.2 cm, submitted D1. CG/pl PERFORMED.The following special studies were performed on this case and the interpretation is incorporated in the diagnostic report above:BLOCK A1- WARTHIN STARRYBLOCK B1- JORGITO STARRYPOCT-GLUCOSE METER 2018-06-06 11:44:00 Test Item Value Reference Range Interpretation Comments POC-GLUCOSE METER 154 mg/dL 70-110 H TESTED AT [facility] 6720 (BEAKER) (test code = NOLAN Quevedo [place] 1538) [address] HEPATIC FUNCTION [id number] 12:57:00 Test Item Value Reference Range Interpretation Comments TOTAL PROTEIN (BEAKER) (test code = 7.7 gm/dL 6.0-8.3 770) ALBUMIN (BEAKER) (test code = 1145) 3.5 g/dL 3.5-5.0 BILIRUBIN TOTAL (BEAKER) (test code 0.5 mg/dL 0.2-1.2 = 377) BILIRUBIN DIRECT (BEAKER) (test 0.2 mg/dL 0.1-0.5 code = 706) ALKALINE PHOSPHATASE (BEAKER) (test 84 U/L 40-150 code = 346) AST (SGOT) (BEAKER) (test code = 46 U/L 5-34 H 353) ALT (SGPT) (BEAKER) (test code = 61 U/L 6-55 H 347) Standing monthly X 3HEPATIC FUNCTION [id number] 11:35:00 Test Item Value Reference Range Interpretation Comments TOTAL PROTEIN (BEAKER) (test code = 7.8 gm/dL 6.0-8.3 770) ALBUMIN (BEAKER) (test code = 1145) 3.6 g/dL 3.5-5.0 BILIRUBIN TOTAL (BEAKER) (test code 0.7 mg/dL 0.2-1.2 = 377) BILIRUBIN DIRECT (BEAKER) (test 0.3 mg/dL 0.1-0.5 code = 706) ALKALINE PHOSPHATASE (BEAKER) (test 107 U/L 40-150 code = 346) AST (SGOT) (BEAKER) (test code = 93 U/L 5-34 H 353) ALT (SGPT) (BEAKER) (test code = 121 U/L 6-55 H 347) Standing monthly X 3LIVER FIBROSIS, FIBROTEST-ACTITEST [id number] 08:59:00 Test Item Value Reference Range Interpretation Comments FIBROSIS SCORE (QUEST) (test code = 1344466) FIBROSIS STAGE (QUEST) (test code = 2511179) FIBROSIS INTERPRETATION (QUEST) (test code = 3479258) NECROINFLAMMAT ACTIVITY GRADE ([facility]) (test code = 2036382) NECROINFLAMMAT INTERP (QUEST) (test code = 4646538) BILIRUBIN, TOTAL (QUEST) (test code = 3799404) GGT (QUEST) (test code = 6819568) ALT (SGPT) (QUEST) (test code = 0843026) ALPHA 2 MACROGLOBULIN (QUEST) (test code = 2097716) HAPTOGLOBIN (QUEST) (test code = 1511024) APOLIPOPROTEIN A-1 (QUEST) (test code = 0547111) NECROINFLAMMAT ACTIVITY SCORE (test code = 3894477) HEPATITIS C PCR, [id number] 12:08:00 Test Item Value Reference Range Interpretation Comments HCV NUMERIC RESULT (BEAKER) 4442588 IU/mL <15 H (test code = 2700) This test uses a Real-Time Polymerase Chain Reaction (RT-PCR) methodology and was performed using [employer] Ampliprep/FRANCH[employer]KA TaqMan HCV test kit version 2.0 ([employer]).Reportable range for this assay is 15 - 100,000,000 IU per mL (1.18 - 8.00 Log IU/mL).HIV-1 ANTIGEN WITH HIV-1/2 [id number] 16:17:00 Test Item Value Reference Range Interpretation Comments HIV-1 ANTIGEN WITH HIV 1\\T\\2 Nonreactive Nonreactive ANTIBODY (2) (BEAKER) (test code = 2586) HEPATIC FUNCTION [id number] 15:58:00 Test Item Value Reference Range Interpretation Comments TOTAL PROTEIN (BEAKER) (test code = 8.4 gm/dL 6.0-8.3 H 770) ALBUMIN (BEAKER) (test code = 1145) 3.9 g/dL 3.5-5.0 BILIRUBIN TOTAL (BEAKER) (test code 0.7 mg/dL 0.2-1.2 = 377) BILIRUBIN DIRECT (BEAKER) (test 0.3 mg/dL 0.1-0.5 code = 706) ALKALINE PHOSPHATASE (BEAKER) (test 106 U/L 40-150 code = 346) AST (SGOT) (BEAKER) (test code = 81 U/L 5-34 H 353) ALT (SGPT) (BEAKER) (test code = 80 U/L 6-55 H 347) BASIC METABOLIC [id number] 15:58:00 Test Item Value Reference Range Interpretation Comments SODIUM (BEAKER) 136 meq/L 136-145 (test code = 381) POTASSIUM (BEAKER) 4.9 meq/L 3.5-5.1 (test code = 379) CHLORIDE (BEAKER) 106 meq/L 98-107 (test code = 382) CO2 (BEAKER) (test 23 meq/L 22-29 code = 355) BLOOD UREA NITROGEN 42 mg/dL 7-21 H (BEAKER) (test code = 354) CREATININE (BEAKER) 1.56 mg/dL 0.57-1.25 H (test code = 358) GLUCOSE RANDOM 163 mg/dL 70-105 H (BEAKER) (test code = 652) CALCIUM (BEAKER) 10.0 mg/dL 8.4-10.2 (test code = 697) EGFR (BEAKER) (test 43 mL/min/1.73 ESTIMA ARASH GFR IS code = 1092) sq m NOT ACCURATE CREATININE CLEARANCE IN PREDICTING GLOMERULAR FILTRATION RATE . ESTIMATED GFR I S NOT APPLICABLE FOR DIALYSIS PATIEN TS. PROTHROMBIN [id number] 15:46:00 Test Item Value Reference Range Interpretation Comments PROTIME (BEAKER) (test code = 18.3 seconds 11.7-14.7 H 759) INR (BEAKER) (test code = 370) 1.5 <=5.9 RECOMMENDED COUMADIN/WARFARIN INR THERAPY RANGESSTANDARD DOSE: 2.0 - 3.0 Includes: PROPHYLAXIS for venous thrombosis, systemic embolization; TREATMENT for venous thrombosis and/or pulmonary embolus.HIGH RISK: Target INR is 2.5-3.5 for patients with mechanical heart valves.CBC W/PLT COUNT & AUTO [id number] 15:36:00 Test Item Value Reference Range Interpretation Comments WHITE BLOOD CELL COUNT (BEAKER) 3.5 K/ L 3.5-10.5 (test code = 775) RED BLOOD CELL COUNT (BEAKER) 3.89 M/ L 4.63-6.08 L (test code = 761) HEMOGLOBIN (BEAKER) (test code = 11.0 GM/DL 13.7-17.5 L 410) HEMATOCRIT (BEAKER) (test code = 35.3 % 40.1-51.0 L 411) MEAN CORPUSCULAR VOLUME (BEAKER) 90.7 fL 79.0-92.2 (test code = 753) MEAN CORPUSCULAR HEMOGLOBIN 28.3 pg 25.7-32.2 (BEAKER) (test code = 751) MEAN CORPUSCULAR HEMOGLOBIN CONC 31.2 GM/DL 32.3-36.5 L (BEAKER) (test code = 752) RED CELL DISTRIBUTION WIDTH 15.6 % 11.6-14.4 H (BEAKER) (test code = 412) PLATELET COUNT (BEAKER) (test 124 K/CU MM 150-450 L code = 756) MEAN PLATELET VOLUME (BEAKER) 12.1 fL 9.4-12.4 (test code = 754) NUCLEATED RED BLOOD CELLS 0 /100 WBC 0-0 (BEAKER) (test code = 413) NEUTROPHILS RELATIVE PERCENT 63 % (BEAKER) (test code = 429) LYMPHOCYTES RELATIVE PERCENT 19 % (BEAKER) (test code = 430) MONOCYTES RELATIVE PERCENT 14 % (BEAKER) (test code = 431) EOSINOPHILS RELATIVE PERCENT 3 % (BEAKER) (test code = 432) BASOPHILS RELATIVE PERCENT 1 % (BEAKER) (test code = 437) NEUTROPHILS ABSOLUTE COUNT 2.21 K/ L 1.78-5.38 (BEAKER) (test code = 670) LYMPHOCYTES ABSOLUTE COUNT 0.65 K/ L 1.32-3.57 L (BEAKER) (test code = 414) MONOCYTES ABSOLUTE COUNT (BEAKER) 0.47 K/ L 0.30-0.82 (test code = 415) EOSINOPHILS ABSOLUTE COUNT 0.10 K/ L 0.04-0.54 (BEAKER) (test code = 416) BASOPHILS ABSOLUTE COUNT (BEAKER) 0.04 K/ L 0.01-0.08 (test code = 417) IMMATURE GRANULOCYTES-RELATIVE 1 % 0-1 PERCENT (BEAKER) (test code = 2801) ANTI-NUCLEAR ANTIBODY (NAKIA)2018-02-17 10:37:00 Test Item Value Reference Range Interpretation Comments ANTI-NUCLEAR ANTIBODY (NAKIA) (BEAKER) Positive Negative A (test code = 418) NAKIA TITER AND [id number] 10:37:00 Test Item Value Reference Range Interpretation Comments NAKIA TITER (BEAKER) (test code = >=:2560 1541) NAKIA PATTERN (BEAKER) (test code = Homogeneous 1781) MR, ABDOMEN, [id number] 17:42:00Referring: Dr. King Chapman REPORT TECHNIQUE: MRI [...] up to 1.4 cm on the left. PERITONEUM/RETROPERITONEUM:Trace ascites.LYMPH NODES: No lymphadenopathy.VESSELS: Portal system and hepatic veins are patent. Main portal vein measures 1.7 cm in diameter. GI TRACT: No distention or wall thickening. BONES AND SOFT TISSUES: Degenerative changes of the visualized spine. Mild gynecomastia bilaterally. IMPRESSION:Suspected cirrhosis. No focal liver lesions. Evidence of portal hypertension. Trace ascites. Signed: Jayne Genao MDReport Verified Date/Time: 02/14/2018 17:42:29 Reading Location: [address] Body Reading Room [id number] 14:32:00 Test Item Value Reference Range Interpretation Comments FERRITIN (BEAKER) (test code = 361) 79 ng/mL 5-275 HEPATITIS C [id number] 14:06:00 Test Item Value Reference Range Interpretation Comments HEPATITIS C ANTIBODY (BEAKER) (test Reactive Nonreactive A code = 367) HEPATITIS B SURFACE [id number] 13:03:00 Test Item Value Reference Range Interpretation Comments HEPATITIS B SURFACE ANTIGEN (2) Nonreactive Nonreactive (BEAKER) (test code = 2585) HEPATITIS B SURFACE [id number] 13:00:00 Test Item Value Reference Range Interpretation Comments HEPATITIS B SURFACE ANTIBODY < mIU/mL <8.0 (BEAKER) (test code = 647) HEPATITIS A ANTIBODY, [id number] 13:00:00 Test Item Value Reference Range Interpretation Comments HEPATITIS A IGG ANTIBODY (BEAKER) Reactive Nonreactive A (test code = 2797) ALPHA FETOPROTEIN (AFP), TUMOR [id number] 13:00:00 Test Item Value Reference Range Interpretation Comments ALPHA-FETOPROTEIN (BEAKER) (test code < ng/mL <10.0 = 1094) HEPATITIS B CORE ANTIBODY, [id number] 12:59:00 Test Item Value Reference Range Interpretation Comments HEPATITIS B CORE TOTAL ANTIBODY Nonreactive Nonreactive (BEAKER) (test code = 497) B-TYPE NATRIURETIC FACTOR (BNP)2018-02-14 12:43:00 Test Item Value Reference Range Interpretation Comments B-TYPE NATRIURETIC PEPTIDE 1129 pg/mL 0-100 H (BEAKER) (test code = 700) IRON, TIBC, % SAT. (WITHOUT FERRITIN)2018-02-14 12:38:00 Test Item Value Reference Range Interpretation Comments IRON (BEAKER) (test code = 547) 40 ug/dL 40-160 TOTAL IRON BINDING CAPACITY 405 ug/dL 250-450 (BEAKER) (test code = 769) IRON % SATURATION (2) (BEAKER) 10 % 20-55 L (test code = 2590) COMPREHENSIVE METABOLIC [id number] 12:33:00 Test Item Value Reference Range Interpretation Comments TOTAL PROTEIN 7.8 gm/dL 6.0-8.3 (BEAKER) (test code = 770) ALBUMIN (BEAKER) 3.8 g/dL 3.5-5.0 (test code = 1145) ALKALINE PHOSPHATASE 98 U/L 40-150 (BEAKER) (test code = 346) BILIRUBIN TOTAL 0.5 mg/dL 0.2-1.2 (BEAKER) (test code = 377) SODIUM (BEAKER) (test 139 meq/L 136-145 code = 381) POTASSIUM (BEAKER) 4.8 meq/L 3.5-5.1 (test code = 379) CHLORIDE (BEAKER) 108 meq/L 98-107 H (test code = 382) CO2 (BEAKER) (test 22 meq/L 22-29 code = 355) BLOOD UREA NITROGEN 40 mg/dL 7-21 H (BEAKER) (test code = 354) CREATININE (BEAKER) 1.30 mg/dL 0.57-1.25 H (test code = 358) GLUCOSE RANDOM 170 mg/dL 70-105 H (BEAKER) (test code = 652) CALCIUM (BEAKER) 9.4 mg/dL 8.4-10.2 (test code = 697) AST (SGOT) (BEAKER) 54 U/L 5-34 H (test code = 353) ALT (SGPT) (BEAKER) 52 U/L 6-55 (test code = 347) EGFR (BEAKER) (test 53 mL/min/1.73 ESTIMA ARASH GFR IS code = 1092) sq m NOT ACCURATE CREATININE CLEARANCE IN PREDICTING GLOMERULAR FILTRATION RATE . ESTIMATED GFR I S NOT APPLICABLE FOR DIALYSIS PATIEN TS. BILIRUBIN, [id number] 12:33:00 Test Item Value Reference Range Interpretation Comments BILIRUBIN DIRECT (BEAKER) (test 0.3 mg/dL 0.1-0.5 code = 706) [id number] 12:28:00 Test Item Value Reference Range Interpretation Comments ALPHA-1 ANTITRYPSIN (BEAKER) 175.00 mg/dL 90.00-200.00 (test code = 502) PROTHROMBIN [id number] 12:17:00 Test Item Value Reference Range Interpretation Comments PROTIME (BEAKER) (test code = 19.0 seconds 11.7-14.7 H 759) INR (BEAKER) (test code = 370) 1.6 <=5.9 RECOMMENDED COUMADIN/WARFARIN INR THERAPY RANGESSTANDARD DOSE: 2.0 - 3.0 Includes: PROPHYLAXIS for venous thrombosis, systemic embolization; TREATMENT for venous thrombosis and/or pulmonary embolus.HIGH RISK: Target INR is 2.5-3.5 for patients with mechanical heart valves.CBC W/PLT COUNT & AUTO [id number] 12:14:00 Test Item Value Reference Range Interpretation Comments WHITE BLOOD CELL COUNT (BEAKER) 3.3 K/ L 3.5-10.5 L (test code = 775) RED BLOOD CELL COUNT (BEAKER) 3.66 M/ L 4.63-6.08 L (test code = 761) HEMOGLOBIN (BEAKER) (test code = 10.4 GM/DL 13.7-17.5 L 410) HEMATOCRIT (BEAKER) (test code = 33.8 % 40.1-51.0 L 411) MEAN CORPUSCULAR VOLUME (BEAKER) 92.3 fL 79.0-92.2 H (test code = 753) MEAN CORPUSCULAR HEMOGLOBIN 28.4 pg 25.7-32.2 (BEAKER) (test code = 751) MEAN CORPUSCULAR HEMOGLOBIN CONC 30.8 GM/DL 32.3-36.5 L (BEAKER) (test code = 752) RED CELL DISTRIBUTION WIDTH 14.8 % 11.6-14.4 H (BEAKER) (test code = 412) PLATELET COUNT (BEAKER) (test 117 K/CU MM 150-450 L code = 756) MEAN PLATELET VOLUME (BEAKER) 11.7 fL 9.4-12.4 (test code = 754) NUCLEATED RED BLOOD CELLS 0 /100 WBC 0-0 (BEAKER) (test code = 413) NEUTROPHILS RELATIVE PERCENT 74 % (BEAKER) (test code = 429) LYMPHOCYTES RELATIVE PERCENT 12 % (BEAKER) (test code = 430) MONOCYTES RELATIVE PERCENT 11 % (BEAKER) (test code = 431) EOSINOPHILS RELATIVE PERCENT 1 % (BEAKER) (test code = 432) BASOPHILS RELATIVE PERCENT 1 % (BEAKER) (test code = 437) NEUTROPHILS ABSOLUTE COUNT 2.44 K/ L 1.78-5.38 (BEAKER) (test code = 670) LYMPHOCYTES ABSOLUTE COUNT 0.40 K/ L 1.32-3.57 L (BEAKER) (test code = 414) MONOCYTES ABSOLUTE COUNT (BEAKER) 0.37 K/ L 0.30-0.82 (test code = 415) EOSINOPHILS ABSOLUTE COUNT 0.04 K/ L 0.04-0.54 (BEAKER) (test code = 416) BASOPHILS ABSOLUTE COUNT (BEAKER) 0.03 K/ L 0.01-0.08 (test code = 417) IMMATURE GRANULOCYTES-RELATIVE 0 % 0-1 PERCENT (BEAKER) (test code = 2801)
[2022-07-12 05:43] LABS: Absolute Lymphocytes (CBC) 0.4 K/uL (0.7-4.9); Hematocrit 34.4 % (39.6-49.0); Lymphocytes % 10.8 % (15.3-44.8); MCV 94.7 fL (80-100); MPV 7.5 fL (7.6-11.3); RBC Red Blood Cell Count 3.63 M/uL (4.33-5.43)
[2022-07-12 05:51] LABS: Protime INR 1.36
[2022-07-12 06:44] LABS: Albumin 3.4 g/dL (3.4-5.0); Bilirubin Direct 0.2 mg/dL (0-0.2); Bilirubin Total 0.6 mg/dL (0.2-1.0); Magnesium 2.6 mg/dL (1.8-2.4); Potassium 4.3 mmol/L (3.5-5.1); Protein, Total 6.9 g/dL (6.4-8.2)
[2022-07-12 07:26] LABS: Troponin High Sensitivity 61.6 pg/mL (<58.9)
--- NOTE | 2022-07-12 07:26 | RAD REPORT ---
EXAM DESCRIPTION: CT - Chest Abd Pelvis Wo Con - 07/12/2022 6:37 am CLINICAL HISTORY: Chest and abdomen pain. sob, cirrhosis, abd swelling, sob COMPARISON: CT CHEST,ABD,PELVIS W/O dated 07/16/2019 TECHNIQUE: A limited noncontrast study was performed All CT scans are performed using dose optimization technique as appropriate and may include automated exposure control or mA/KV adjustment according to patient size. FINDINGS: Small right pleural effusion.Trace left pleural effusion.Mild patchy opacities in lung bas es, greater on the right.No intrathoracic adenopathy. Cholelithiasis. No acute solid organ abnormality detected. Mild ascites. Moderate stool is present throughout the colon. Sigmoid diverticulosis coli without div erticulitis. Normal appendix. No pathologic lymphadenopathy in the abdomen or pelvis. Mild anasarca. Moderate lumbar degenerative changes. IMPRESSION: Mild ascites is seen. Small pleural effusion is present on the right. Patchy opacity in the right lung base likely atelecta sis or infiltrate. Moderate stool is present throughout the colon.
[2022-07-12] MEDS ORDERED: LIDOCAINE VISCOUS 2% SOLN 15 ML UDC ONE (10:01)
--- NOTE | 2022-07-12 10:02 | EDPHYS ---
Physician Documentation [facility] Name: Doug Llanes Age: 81 yrs Sex: Male : 1940 Arrival Date: 07/12/2022 Time: 04:59 Bed 14 Private MD: ED Physician Pedro Lagunas HPI: 07/12 06:40 This 81 yrs old Male presents to ER via EMS with complaints of sob. rn 06:40 The patient has shortness of breath at rest, with light activity. Onset: The rn symptoms/episode began/occurred 1 week(s) ago. Duration: The symptoms are continuous. The patient's shortness of breath is aggravated by exertion, light activity, talking. Associated signs and symptoms: Pertinent positives: non-productive cough, Pertinent negatives: fever, hemoptysis. Severity of symptoms: At their worst the symptoms were moderate in the emergency department the symptoms are unchanged. The patient has experienced similar episodes in the past. The patient has been recently seen by a physician:. Pt reports hx of cirrhosis, gets paracentesis frequently, scheduled for next paracentesis in 4 days, increased sob yesterday so came in for evaluation. Does not feel ill. No fever. . Historical: - Allergies: 05:20 No Known Allergies; ke1 - PMHx: 05:14 Diabetes - NIDDM; Hypertension; ke1 - Immunization history:: Adult Immunizations Client reports having NOT received the Covid vaccine. - Social history:: Smoking status: Patient denies any tobacco usage or history of. - Family history:: not pertinent. - Hospitalizations: : No recent hospitalization is reported. ROS: 06:40 Constitutional: Negative for fever, chills, and weight loss, Eyes: Negative for injury, rn pain, redness, and discharge, Neck: Negative for injury, pain, and swelling, Cardiovascular: Negative for chest pain, palpitations Respiratory: Negative for wheezing, and pleuritic chest pain Abdomen/GI: + abd pain and distension Back: Negative for injury and pain, MS/Extremity: Negative for injury and deformity, Skin: Negative for injury, rash, and discoloration, Neuro: Negative for headache, numbness, tingling, and seizure. Exam: 06:40 Constitutional: This is a well developed, well nourished patient who is awake, alert, rn + mild tachypnea, sitting upright Head/Face: Normocephalic, atraumatic. Cardiovascular: Bradycardic, regular Respiratory: + mild tachypnea, diminished breath sounds left lung base Abdomen/GI: soft, + edematous abdominal wall and subcutaneous tissues Back: No spinal tenderness. Skin: Warm, dry MS/ Extremity: Pulses equal, no cyanosis. 2+ pitting edema bilateral lower ext Neuro: Awake and alert, GCS 15 09:55 ECG was reviewed by the Attending Physician. ruth 10:10 ECG was reviewed by the Attending Physician. ruth Vital Signs: 05:12 BP 160 / 80; Pulse 59; Resp 19; Pulse Ox 100% on 5 lpm NC; Pain 0/10; ke1 08:10 BP 171 / 78; Pulse 59; Resp 18; Pulse Ox 100% on 2 lpm NC; ph 09:03 BP 132 / 65; Pulse 58; Resp 22; Pulse Ox 99% ; ko1 11:00 BP 163 / 77; Pulse 57; Resp 16; Pulse Ox 99% ; ko1 12:00 BP 175 / 77; Pulse 99; Resp 16; Pulse Ox 99% ; ko1 Procedures: 10:44 Key cath inserted by myself - 16 Fr. Urine output = 500 ml's. Patient tolerated well. ruth MDM: 05:00 Patient medically screened. rn 09:52 Differential diagnosis: Anemia asthma, Bronchitis CHF exacerbation, pneumonia, ruth pulmonary edema, reactive airway disease, Unstable Angina. Antibiotic administration: Not indicated, the patient does not have an appreciated infiltrate. The patient's Wells Deep Vein Thrombosis Score was calculated as follows: Total Score: 0-2 Pts- Low Risk. The patient's pulmonary embolism risk score was calculated as follows: Total Score: 0-2 points. This patient was found to be at low risk for a pulmonary embolism by using the Well's assessment criteria. Immunization status: Pneumococcal vaccine: Influenza vaccine: Data reviewed: vital signs, nurses notes, EMS record, lab test result(s), EKG, radiologic studies, CT scan, plain films. Data interpreted: dental director: rate is 58 beats/min, Pulse oximetry: on room air. Test interpretation: by ED physician or midlevel provider: ECG, plain radiologic studies. Counseling: I had a detailed discussion with the patient and/or guardian regarding: the historical points, exam findings, and any diagnostic results supporting the discharge/admit diagnosis, lab results, radiology results, the need to transfer to another facility, for higher level of care, [facility] does not immediately have the required specialist. 07/12 05:20 Order name: BMP; Complete Time: 09:46 rn 07/12 05:20 Order name: Blood Culture Adult (2) rn 07/12 05:20 Order name: CBC with Diff rn 07/12 05:20 Order name: Hepatic Function; Complete Time: 09:46 rn 07/12 05:20 Order name: Lipase; Complete Time: 09:46 rn 07/12 05:20 Order name: Magnesium; Complete Time: 09:46 rn 07/12 05:20 Order name: NT PRO-BNP; Complete Time: 09:46 rn 07/12 05:20 Order name: PT-INR; Complete Time: :46 rn 07/12 05:20 Order name: Ptt, Activated; Complete Time: 09:46 rn 07/12 05:20 Order name: Troponin HS; Complete Time: 09:46 rn 07/12 05:20 Order name: XRAY CXR (1 view) rn 07/12 06:45 Order name: CREATININE WHOLE BLOOD; Complete Time: 09:46 EDMS 07/12 09:58 Order name: AMMONIA; Complete Time: 11:17 ruth 07/12 10:10 Order name: SARS RAPID; Complete Time: 11:17 eb 07/12 05:20 Order name: EKG; Complete Time: 05:21 rn 07/12 05:20 Order name: Cardiac monitoring; Complete Time: 05:57 rn 07/12 05:20 Order name: EKG - Nurse/Tech; Complete Time: 05:57 rn 07/12 05:20 Order name: IV Saline Lock; Complete Time: 05:57 rn 07/12 05:20 Order name: Labs collected and sent; Complete Time: 05:57 rn 07/12 05:20 Order name: O2 Per Protocol; Complete Time: 05:57 rn 07/12 05:20 Order name: O2 Sat Monitoring; Complete Time: 05:57 rn 07/12 06:18 Order name: Chest Abd Pelvis Wo Con; Complete Time: 09:46 EDMS 07/12 09:46 Order name: Key; Complete Time: 10:36 ruth 07/12 09:58 Order name: EKG; Complete Time: 09:59 ruth 07/12 09:58 Order name: EKG - Nurse/Tech; Complete Time: 10:04 ruth EC:55 Rate is 59 beats/min. Rhythm is regular. QRS [place] is Normal. OR interval is normal. QRS ruth interval is normal. QT interval is normal. T waves are Normal. Clinical impression: Atrial Flutter and No evidence of ischemia. Interpreted by me. Reviewed by me. 10:10 Rate is 58 beats/min. Rhythm is irregularly irregular. QRS [place] is Normal. OR interval ruth is normal. QRS interval is normal. QT interval is normal. No Q waves. T waves are Normal. No ST changes noted. Clinical impression: Abnormal EKG without significant change, Atrial Flutter, and No evidence of ischemia. Interpreted by me. Reviewed by me. Administered Medications: 10:45 Drug: Pepcid (famotidine) 20 mg Route: IVP; Site: right upper arm; ph 10:45 Drug: Rocephin (cefTRIAXone) 1 grams Route: IV; Rate: per protocol; Site: right upper ph arm; Disposition Summary: 07/12/22 10:02 Transfer Ordered Transfer Location: [facility] ruth Reason: Higher level of care ruth Condition: Fair ruth Problem: new ruth Symptoms: are unchanged ruth Accepting Physician: Dr. Seamus Mckeon [place](07/12/22 13:29) ko1 Diagnosis - Acute kidney failure, unspecified - acute on chronic ruth - Other ascites - tense ruth - Pleural effusion in other conditions classified elsewhere - bilateral ruth - Generalized edema - Anasarca ruth - Type 2 diabetes mellitus with hyperglycemia ruth - Retention of urine, unspecified - post void residual 500 cc clear ruth - Unspecified atrial flutter - 4:1 ruth Forms: - Medication Reconciliation Form ruth - SBAR form ruth Signatures: Dispatcher [employer] EDPedro Casey MD MD cha Nieto, Roman, MD MD rn Hall, Patricia, RN RN Tamika Becker Kouassi RN RN mary1 Yolie Chopra RN RN ko1 Corrections: (The following items were deleted from the chart) 05:20 05:20 Allergies: Aspirin; ke1 keRosalva 06:18 05:25 Chest Abdomen Pelvis W Con+CT.RAD.BRZ ordered. EDMS EDMS 10:35 10:02 to [facility] 10:46 10:35 to [facility] 12:48 10:46 to [facility] 13:29 12:48 Dr. Seamus Maravilla[facility] ko1
--- NOTE | 2022-07-12 10:02 | ER ---
Nurse's Notes [facility] Name: Doug Llanes Age: 81 yrs Sex: Male : 1940 Arrival Date: 07/12/2022 Time: 04:59 Bed 14 Private MD: Diagnosis: Acute kidney failure, unspecified-acute on chronic;Other ascites-tense;Pleural effusion in other conditions classified elsewhere-bilateral;Generalized edema-Anasarca;Type 2 diabetes mellitus with hyperglycemia;Retention of urine, unspecified-post void residual 500 cc clear;Unspecified atrial flutter-4:1 Presentation: 07/12 05:12 Chief complaint: EMS states: SOB getting worse today, on paracentesis Q2 weeks but ke1 can't wait for next session due to increasing SOB. Initial Sepsis Screen: Does the patient meet any 2 criteria? No. Patient's initial sepsis screen is negative. Does the patient have a suspected source of infection? No. Patient's initial sepsis screen is negative. Risk Assessment: Do you want to hurt yourself or someone else? Patient reports no desire to harm self or others. Onset of symptoms was July 12, 2022 at 02:00. 05:12 Method Of Arrival: EMS ke1 05:12 Acuity: LEEANNE 3 ke1 08:11 Ebola Screen: No symptoms or risks identified at this time. ph 10:47 Coronavirus screen: Vaccine status: Patient reports receiving the 2nd dose of the covid ph vaccine. Triage Assessment: 05:16 General: Appears in no apparent distress. Behavior is appropriate for age. Pain: Denies ke1 pain. Respiratory: Respiratory effort is even, unlabored, Respiratory pattern is regular, symmetrical, On NC \T\ 4 L. Historical: - Allergies: 05:20 No Known Allergies; ke1 - PMHx: 05:14 Diabetes - NIDDM; Hypertension; ke1 - Immunization history:: Adult Immunizations Client reports having NOT received the Covid vaccine. - Social history:: Smoking status: Patient denies any tobacco usage or history of. - Family history:: not pertinent. - Hospitalizations: : No recent hospitalization is reported. Screenin:30 Abuse screen: Denies threats or abuse. Nutritional screening: No deficits noted. jb4 Tuberculosis screening: No symptoms or risk factors identified. Fall Risk None identified. Assessment: 05:30 General: Appears in no apparent distress. comfortable, Behavior is calm, cooperative, jb4 appropriate for age. Pain: Denies pain. Neuro: Level of Consciousness is awake, alert, obeys commands, Oriented to person, place, time, situation. Cardiovascular: Patient's skin is warm and dry. Respiratory: Reports shortness of breath at rest on exertion Airway is patent Respiratory effort is even, unlabored, Respiratory pattern is regular, symmetrical. GI: Abdomen is round distended. Derm: Skin is intact, Skin is pink, warm \T\ dry. Musculoskeletal: Circulation, motion, and sensation intact. Range of motion: intact in all extremities. 07:30 Reassessment: Patient is alert, oriented x 3, equal unlabored respirations, skin ko1 warm/dry/pink. Patient denies pain at this time. Patient states feeling better. Neuro: No deficits noted. 08:10 Reassessment: Patient appears in no apparent distress at this time. Patient and/or ph family updated on plan of care and expected duration. Pain level reassessed. Patient is alert, oriented x 3, equal unlabored respirations, skin warm/dry/pink. 10:46 General: Appears in no apparent distress. Behavior is calm, cooperative, appropriate ph for age. Pain: Denies pain. Cardiovascular: Edema is 3+ to right upper arm, right elbow, right forearm, right wrist, pubic area, left upper thigh, left lower thigh, left knee, left midcalf, left upper arm, left elbow, left forearm, left wrist, right upper thigh, right lower thigh, right knee and right midcalf. Vital Signs: 05:12 BP 160 / 80; Pulse 59; Resp 19; Pulse Ox 100% on 5 lpm NC; Pain 0/10; ke1 08:10 BP 171 / 78; Pulse 59; Resp 18; Pulse Ox 100% on 2 lpm NC; ph 09:03 BP 132 / 65; Pulse 58; Resp 22; Pulse Ox 99% ; ko1 11:00 BP 163 / 77; Pulse 57; Resp 16; Pulse Ox 99% ; ko1 12:00 BP 175 / 77; Pulse 99; Resp 16; Pulse Ox 99% ; ko1 ED Course: 04:59 Patient arrived in ED. mw2 05:00 Parker Thomas MD is Attending Physician. rn 05:12 Ebrottie, Kouassi, RN is Primary Nurse. ke1 05:14 Triage completed. ke1 05:30 Inserted saline lock: 18 gauge in right upper arm, using aseptic technique. Blood jb4 collected. 05:30 Initial lab(s) drawn, by me, sent to lab. First set of blood cultures drawn by me. jb4 05:30 Patient has correct armband on for positive identification. Bed in low position. Call jb4 light in reach. Side rails up X 1. Client placed on continuous cardiac and pulse oximetry monitoring. NIBP monitoring applied. wharf hand on. 05:41 XRAY CXR (1 view) In Process Unspecified. EDMS 06:38 Chest Abd Pelvis Wo Con In Process Unspecified. EDMS 07:21 Attending Physician role handed off by Parker Thomas MD ruth 07:21 Pedro Lagunas MD is Attending Physician. ruth 07:25 Primary Nurse role handed off by Matilde Kumar, COLTON eb 07:55 Yolie Chopra, COLTON is Primary Nurse. ko1 08:08 Blood Culture Adult (2) Sent. ko1 08:11 Arm band placed on Patient placed in an exam room. ph 10:09 initiated a transfer with Tamika Olmstead from the [facility]. eb 10:45 No provider procedures requiring assistance completed. Patient transferred, IV remains ph in place. 10:45 Key cath inserted, using sterile technique, 16 Fr., by ED staff, balloon inflated, to ph gravity drainage, urine specimen collected. returned tanika urine. Patient tolerated well. 11:[address] the hospitalist content director for [facility] with Dr. Lagunas for eb patient transfer consultation. 11:48 administrative approval given by Tamika Olmsteda/ patient has been accepted to [facility] rm 1406/ Dr. Way has accepted the patient in transfer/ report to be called [phone]. 12:44 Report given to Report called to Ephraim Higuera RN at [facility], room 1406. ko1 Administered Medications: 10:45 Drug: Pepcid (famotidine) 20 mg Route: IVP; Site: right upper arm; ph 10:45 Drug: Rocephin (cefTRIAXone) 1 grams Route: IV; Rate: per protocol; Site: right upper ph arm; Medication: 05:30 VIS not applicable for this client. jb4 Outcome: 10:02 ER care complete, transfer ordered by MD. miranda 13:23 Transferred by ground EMS to [facility], [facility], Transfer form completed. ko1 X-rays sent w/ patient. 13:23 Condition: stable 13:23 Instructed on the need for transfer. 13:29 Patient left the ED. ko1 Signatures: Dispatcher [employer] EDPedro Casey MD MD cha Nieto, Roman, MD MD rn Hall, Patricia, RN RN Denver Conklin RN RN jb4 Nando Aaron 2 Tamika Becker Kouassi RN RN ke1 Yolie Chopra RN RN ko1 Corrections: (The following items were deleted from the chart) 05:20 05:20 Allergies: Aspirin; ke1 ke1 05:21 05:16 General: Appears in no apparent distress. Behavior is appropriate for age, ke1 ke1
[2022-07-12 10:40] LABS: SARS-CoV-2 Antigen Rapid Res Negative (Negative)
[2022-07-12] MEDS ORDERED: FAMOTIDINE 20 MG/2 ML VIAL IV ONE (10:46)
[2022-07-12] MEDS ORDERED: NA CHLORIDE 0.9% 50 ML ONE (10:46)
[2022-07-12] MEDS ORDERED: CEFTRIAXONE 1000 MG/VIAL ONE (10:46)
[2022-07-12 14:41] VITALS: O2SAT 99
[2022-07-12 14:46] VITALS: BP 175/77
--- NOTE | 2022-07-12 18:16 | RAD REPORT ---
EXAM DESCRIPTION: RAD - Chest Single View - 07/12/2022 5:39 am CLINICAL HISTORY: Shortness of breath COMPARISON: 02/11/2020 TECHNIQUE: AP portable chest image was obtained . FINDINGS: Moderate bilateral pulmonary opacities likely represent pulmonary edema. Small left pleura l effusion. The heart is moderately enlarged. IMPRESSION: Moderate CHF versus volume overload pattern.
--- NOTE | 2022-07-13 15:08 | EKG ---
Test Date: 2022-07-12 Test Time: 10:05:11 Mis Manager: NAOMI MEASUREMENT RESULTS: Intervals: Rate: 58 FL: QRSD: 110 QT: 464 QTc: 455 [place]: P: 177 FL: QRS: 89 T: -22 INTERPRETIVE STATEMENTS: Atrial flutter with 4:1 AV conduction Possible Anterior infarct, age undetermined T wave abnormality, consider inferior ischemia Abnormal ECG Compared to ECG 07/12/2022 05:42:44 T-wave abnormality now present Possible ischemia now present Junctional rhythm no longer present Myocardial infarct finding still present Electronically Signed On 07-13-22 15:07:00 CDT by Donavan Bull
--- NOTE | 2022-07-13 15:08 | EKG ---
Test Date: 2022-07-12 Test Time: 05:42:44 Tax Processor: DIVINE MEASUREMENT RESULTS: Intervals: Rate: 59 NC: QRSD: 108 QT: 426 QTc: 421 [place]: P: NC: QRS: 71 T: -7 INTERPRETIVE STATEMENTS: Atrial flutter Possible Anterior infarct, age undetermined Abnormal ECG Compared to ECG 02/17/2020 00:18:28 Myocardial infarct finding now present T-wave abnormality no longer present Electronically Signed On 07-13-22 15:07:38 CDT by Donavan Bull
== END 2022-07-12 13:29 | disposition short-term general hospital (02) ==
LOC: ER 04:58
DX: N17.9 Acute kidney failure, unspecified (principal); R18.8 Other ascites; J91.8 Pleural effusion in other conditions classified elsewhere; I48.92 Unspecified atrial flutter; E11.65 Type 2 diabetes mellitus with hyperglycemia; R33.9 Retention of urine, unspecified; I10 Essential (primary) hypertension; Z20.822 Contact with and (suspected) exposure to COVID-19
CPT/HCPCS: 36415; 51702; 71045; 71250; 74176; 80048; 80076; 82140; 82565; 83690; 83735; 83880; 84484; 85025; 85610; 85730; 87040; 87811; 93005; 96374; 96375; 99285